=== PATIENT | female | born 1950 | race Caucasian/White ===

== ENCOUNTER → 2016-07-26 | Outpatient (CLI) | payer BC, MEDICARE | LOC: LABPAT 15:36 | PROVIDERS: ATTEND Orthopaedic Surgery | DX: Z01.812 Encounter for preprocedural laboratory examination (principal) | CPT/HCPCS: 87070 ==

== ENCOUNTER → 2016-08-01 | Outpatient (CLI) | payer BC, MEDICARE ==
[2016-08-01 13:55] LABS: Basophils % (A) 0 %; CH 32.2; CHCM 32.3; Eosinophils # (A) 0.1 k/uL (0-0.7); Eosinophils % (A) 2 %; HCT 43.3 % (34.0-46.0); HGB 13.9 gm/dL (11.4-16.0); Luc # (Auto) 0.19; Luc % (Auto) 3; Lymphocytes # (A) 1.4 k/uL (1.0-4.8); Lymphocytes % (A) 19 %; Mean Platelet Volume 8.7; Monocytes # (A) 0.4 k/uL (0-1.0); Monocytes % (A) 5 %; Neutrophils # (A) 5.4 k/uL (1.3-7.7); Neutrophils % (A) 72 %; RBC 4.33 m/uL (3.80-5.40); RDW 12.7 % (11.5-15.5); WBC 7.4 k/uL (3.8-10.6); WBC (Perox) 7.63
[2016-08-01 14:04] LABS: INR 1.1 (<1.1); Partial Thromboplastin Time 24.3 sec (22.0-30.0); Prothrombin Time 10.7 sec (9.0-12.0)
[2016-08-01 14:05] LABS: ALT 26 U/L (9-52); AST 23 U/L (14-36); Alkaline Phosphatase 61 U/L (38-126); Anion Gap 7 mmol/L; Blood Urea Nitrogen 18 mg/dL (7-17); Calcium 9.8 mg/dL (8.4-10.2); Carbon Dioxide 28 mmol/L (22-30); Chloride 101 mmol/L (98-107); Glucose 86 mg/dL (74-99); Non-African American GFR(MDRD) >60 (>60 ml/min/1.73 sqM); Sodium 136 mmol/L (137-145); Total Bilirubin 0.7 mg/dL (0.2-1.3)
[2016-08-01 14:07] LABS: Potassium 4.9 mmol/L (3.5-5.1)
[2016-08-01 14:38] LABS: Appearance,Urine Clear (Clear); Bacteria,Urine Rare /hpf; Bilirubin,Urine Negative (Negative); Glucose,Urine (UA) Negative (Negative); Ketones,Urine Negative (Negative); Leukocyte Esterase,Urine Negative (Negative); Mucus,Urine Rare /hpf; Nitrite,Urine Negative (Negative); PH, Urine 5.5 (5.0-8.0); Particle Count 704; Protein,Urine Negative (Negative); RBC,Urine 8 /hpf (0-5); Specific Gravity,Urine 1.014 (1.001-1.035); Squamous Epithelial Cell,Urine <1 /hpf (0-4); UA Billing (MACRO vs. MICRO) MICRO; Urobilinogen,Urine <2.0 mg/dL (<2.0); WBC,Urine 1 /hpf (0-5)
== END ==
LOC: LABPAT 13:12
PROVIDERS: ATTEND Orthopaedic Surgery
DX: Z01.818 Encounter for other preprocedural examination (principal); Z51.81 Encounter for therapeutic drug level monitoring; Z79.01 Long term (current) use of anticoagulants
CPT/HCPCS: 80053; 81001; 85025; 85610; 85730; 86850; 86900; 86901

== ENCOUNTER 2016-08-08 05:54 | Inpatient (IN) | payer BC, MEDICARE ==
[2016-07-28 15:04] VITALS: BMI 21.2
[~2016-08-08 05:54] MED LIST: ACETAMINOPHEN TAB 500 MG TAB PO ONE; DEXAMETHASONE SOD PHOSPHATE 10 MG/ML 1 ML VIAL IV ONE; HYDROmorphone 1 MG/ML 1 ML SYRINGE IVP PRN; LIDOCAINE 1% 20 ML VIAL (10MG/ML) FOR IV START INTRADERMA PRN; MELOXICAM 7.5 MG TAB PO ONE; MIDAZOLAM 2 MG/2 ML VIAL IV PRN; ONDANSETRON 4 MG/2 ML VIAL IVP ONE; SCOPOLAMINE 1.5MG/72HR PATCH TRANSDERM ONE; TRANEXAMIC ACID 1,000 MG in SODIUM CHLORIDE 0.9% 100 ML IVPB ONE; ceFAZolin 2 GM in SODIUM CHLORIDE 0.9% 100 ML IVPB ONE
[2016-08-08] MEDS ORDERED: LIDOCAINE 1% 20 ML VIAL (10MG/ML) FOR IV START INTRADERMA ONE ×2 (06:40→06:54)
[2016-08-08] MEDS: LACTATED RINGERS 1,000 ML IV SCH ×2 (06:52→23:18)
[2016-08-08] MEDS ORDERED: TRANEXAMIC ACID 1,000 MG/10 ML VIAL ONE (07:29)
[2016-08-08] MEDS ORDERED: SODIUM CHLORIDE 0.9% 100 ML BAG ONE (07:29)
[2016-08-08] MEDS ORDERED: MIDAZOLAM 2 MG/2 ML VIAL ONE (07:29)
[2016-08-08] MEDS ORDERED: ePHEDrine 50 MG/ML 1 ML AMP ONE (07:29)
[2016-08-08] MEDS ORDERED: PROPOFOL 10 MG/ML 20 ML VIAL IV ONE (07:29)
[2016-08-08] MEDS ORDERED: fentaNYL (PF) 50 MCG/ML 2 ML AMP ONE (07:29)
[2016-08-08] MEDS ORDERED: ceFAZolin 3,000 MG in SODIUM CHLORIDE 0.9% IRRIGATIO 3,000 ML IRRIGATION ONE (07:29)
[2016-08-08] MEDS ORDERED: HEPARIN SODIUM,PORCINE 10,000 UNIT/ML 1 ML VIAL ONE (07:29)
[2016-08-08] MEDS ORDERED: LACTATED RINGERS 1,000 ML BAG IV ONE (07:29)
[2016-08-08] MEDS: ROPIVACAINE 246.25 MG, EPINEPHrine 0.5 MG, KETOROLAC 30 MG, cloNIDine HCL/PF 80 MCG, WA... MISCELLANE ONE ×10 (08:08→08:42)
[2016-08-08] MEDS ORDERED: LACTATED RINGERS 1,000 ML IV ONE (09:05)
--- NOTE | 2016-08-08 09:13 | P.OP ---
Date of Procedure: 08/08/16 Preoperative Diagnosis: Severe osteoarthritis right hip Postoperative Diagnosis: Severe osteoarthritis right hip Procedure(s) Performed: Right total hip arthroplasty with a direct anterior approach Implants: Livingston and nephew Polarstem size 3 standard [employer]ston [employer] Nephew R3, 3 hole acetabular shell, 50 mm [employer]ston [employer]hew reflection 6.5 mm cancellus screw, 20 mm 2 [employer]ston [employer]hew R3, XLPE 20 acetabular liner [employer]ston [employer]hew Oxinium femoral head 36 m, -3 All components were press-fit. The articulation is ceramic on polyethylene. Anesthesia: spinal Surgeon: Jasper Marsh Network Technical Analyst #1: Melodie Carmen Estimated Blood Loss (ml): 100 Pathology: other (Femoral head) Condition: stable Disposition: PACU Indications for Procedure: After failure of conservative treatment we discussed the surgical and nonsurgical treatment options at length. Patient wishes to proceed with a total hip arthroplasty with a direct anterior approach. Complications specific to this procedure were discussed at length, including but not limited to infection, leg length discrepancy, dislocation, and nerve injury. Patient is aware of all these complications and informed consent was obtained Operative Findings: The operative findings are consistent with severe osteoarthritis of the right hip Description of Procedure: Patient was seen and evaluated in the preoperative area, consent was reviewed, and the surgical site was marked with a skin marker. Patient was then brought to the operating room and given prophylactic antibiotics intravenously. 1 g of Tranexamic acid was also given. A spinal anesthetic was administered by the anesthesia department. A Lane catheter was then placed by the nursing staff. The patient was then placed on the [place] table with the bony prominences well- padded. The hip area was then prepped and draped in usual sterile fashion. A universal timeout was then performed, which confirmed the patient's name, surgical site, ALLERGIES, and procedure being performed. Next the incision site was located at 1 cm distal and 1 cm lateral to the anterior superior iliac spine. The skin and subcutaneous tissues were sharply incised. Incision was carefully dissected down to the fascia overlying the tensor fascia maryam muscle. This fascia was then incised in line with the incision. Next, using blunt finger dissection, the tensor fascia maryam muscle was dissected off its investing fascia. The muscle was then carefully retracted laterally with a cobra retractor over the lateral neck of the femur. Next, the circumflex vessels were identified and cauterized using the AquaMantis device. The anterior hip capsule was then exposed. The capsule was then opened and an inverted T fashion. Retention sutures were placed in the inferior arms of the capsule. Cobra retractors were then placed intracapsularly. The proximal femur was then visualized. The femoral neck was then osteotomized appropriate level above the lesser trochanter. Small amount of traction was placed with the [place] table. A small wedge of bone was then removed from the remaining femoral head. Next, using a corkscrew femoral head was easily removed from the acetabulum. On gross visual inspection, the femoral head had complete loss of articular cartilage in multiple periarticular osteophytes. Attention was then turned to the acetabulum. the acetabulum was exposed and any remaining labrum was excised. Sequential reaming of the acetabulum was performed using fluoroscopic guidance. When the appropriate size was reached, a trial was then placed. The position and fit of the trial was checked with fluoroscopy. The trial was then removed. Then, using fluoroscopic guidance, the final implant was impacted at 20 of anteversion and 40 of abduction, and fully seated in the acetabulum. 2 screws were then placed in the acetabulum. Again fluoroscopy was used to check position of the screws. Next, the liner was then impacted, with a 20 elevated liner located in the anterior superior quadrant. Component locking was confirmed. Attention was then directed to the femur. With the aid of the [place] table, the femur was externally rotated to approximately 130, extended, and abducted under the opposite leg. A side hook was then placed under the proximal femur, and the side hook elevator was used to elevate the proximal femur. Retractors were then placed. A capsular release was performed, as well as a release of the conjoined tendon, which afforded excellent visualization of the proximal femur. Next, a box osteotome was used to lateralize the proximal femur. A brick molder hand was then used to locate the femoral canal. Sequential broaching was then performed with appropriate size which afforded excellent fixation in the proximal femur. A trial was then placed with appropriate head and neck, and the hip was gently reduced with the aid of the [place] table. Fluoroscopy was then used to check position of the components, as well as to ensure equal leg lengths. The hip was then gently dislocated and the trials were then removed. Final implants were then impacted and the hip was again reduced. Final fluoroscopic x-rays confirmed that the components were in anatomic position, as well as equal leg lengths. The hip was also taken through range of motion, and found to be stable. The hip was then copiously irrigated with antibiotic solution with pulsatile lavage. The hip was then irrigated with Irrisept solution. The soft tissues were then injected with a ropivacaine solution, which consisted of 246.25 mg of ropivacaine, 0.5 mg of epinephrine, 30 mg of Toradol, 80 g of clonidine, and 48.45 mL of sterile water, for a total of 100 mL of fluid injected. A second dose of 1 g of Tranexamic acid was also given. the fascia was then closed with 2-0 strata fix suture. The subcutaneous tissue was closed with 3-0 Vicryl. The subcuticular tissue was closed with 3-0 strata fix suture. The skin was then closed with Dermabond tape. The patient was then transferred to the recovery room in stable condition. The elementary assistant teacher CLARY Rogers was required due to the complexity of surgery , and the need for skilled surgical coordinator for positioning, draping, exposure , retraction, and closure of the wound.
[2016-08-08] MEDS ORDERED: HYDROmorphone 1 MG/ML 1 ML SYRINGE IVP PRN ×3 (09:19)
[2016-08-08] MEDS ORDERED: ONDANSETRON 4 MG/2 ML VIAL IVP PRN (09:19)
[2016-08-08] MEDS ORDERED: MAGNESIUM HYDROXIDE 2,400 MG/10 ML CUP PO PRN (09:19)
[2016-08-08] MEDS ORDERED: NALOXONE 0.4 MG/ML 1 ML VIAL IV PRN (09:19)
[2016-08-08] MEDS ORDERED: DIAZEPAM 5 MG TAB PO PRN ×2 (09:19)
[2016-08-08] MEDS ORDERED: HYDROcodone/APAP 7.5-325MG 1 EACH TAB PO PRN (09:19)
--- NOTE | 2016-08-08 10:19 | XR ---
EXAMINATION TYPE: XR Hip Limited RT DATE OF EXAM: 08/08/2016 9:42 AM COMPARISON: NONE HISTORY: 66-year-old female status post hip surgery, assess surgical alignment TECHNIQUE: Single portable AP view FINDINGS: Images show placement of right hip total arthroplasty. The acetabular cup and femoral short stem comp onent of the prosthesis appear well seated without periprosthetic fracture. Alignment is grossly mary grace omic. Soft tissue gas related to recent operation. IMPRESSION: Uncomplicated postoperative appearance right total hip arthroplasty.
--- NOTE | 2016-08-08 10:55 | XR ---
EXAMINATION TYPE: XR Hip Limited RT, FL guidance operating room DATE OF EXAM: 08/08/2016 9:06 AM COMPARISON: NONE HISTORY: 66 year-old female right anterior hip replacement TECHNIQUE: Intraoperative fluoroscopy and AP view right hip FINDINGS: Images during placement of right total hip arthroplasty. One image shows partial visualization of a l eft total hip replacement as well. FLUOROSCOPY Fluoroscopy time of 39 seconds was used during anterior right hip replacement. 2 image/s document/s the procedure. IMPRESSION: Intraoperative fluoroscopy as above.
[2016-08-08] MEDS: HYDROcodone/APAP 7.5-325MG 1 EACH TAB PO PRN ×2 (14:30→19:39)
[2016-08-08] MEDS: SODIUM CHLORIDE 0.9% 1,000 ML IV SCH ×2 (17:32→19:40)
[2016-08-08] MEDS: ceFAZolin 2 GM in SODIUM CHLORIDE 0.9% 100 ML IVPB SCH ×2 (17:33→23:18)
--- NOTE | 2016-08-08 18:27 | CONS ---
DATE OF CONSULTATION: 08/08/2016 REASON FOR CONSULTATION: Advice regarding gastroesophageal reflux disease and other multiple medical issues requested by Dr. Marsh. HISTORY OF PRESENT ILLNESS: This 66 -year-old woman with past history of gastroesophageal reflux disease, DJD, history of section, hysterectomy, history of degenerative joint disease, history of depression, being followed by Dr. Arroyo in the outpatient setting was admitted after right total hip joint arthroplasty for severe degenerative joint disease. There is no history of any fever, rigors or chills. No history of headache, loss of consciousness or seizures. PAST MEDICAL HISTORY: GERD, history of degenerative joint disease, History of hysterectomy, history of depression. Medications prior to admission include home medications are: 1. Zoloft 50 mg p.o. daily. 2. Multivitamins one p.o. daily. 3. Ativan 1 mg p.o. daily. 4. Melvin 7.5 q6h, p.r.n. 5. Aspirin 81 mg daily. 6. Vitamin C 500 mg p.o. daily. ALLERGIES: None. FAMILY HISTORY: History of deep venous thrombosis in the family. SOCIAL HISTORY: History of smoking on a daily basis. No history of alcohol intake. REVIEW OF SYSTEMS: HEENT: No diminished hearing, diminished vision. CARDIOVASCULAR: No angina or palpitations. RESPIRATORY: No cough. No hemoptysis. GI: No nausea. : No dysuria. Nervous system: No numbness or weakness. Allergy/immunology: No asthma or hayfever. MUSCULOSKELETAL: As mentioned earlier. HEMATOLOGY/ONCOLOGY: No history of anemia. ENDOCRINE: No history of diabetes, hypothyroidism. CONSTITUTIONAL: As mentioned earlier. Dermatology: Negative. Rheumatology: Negative. PSYCHIATRY: As mentioned earlier. PHYSICAL EXAMINATION: The patient is alert and oriented times three. Pulse 74, blood pressure 130/60, respiratory rate 16, temperature 97.2, pulse ox 99% on room air. HEENT: Conjunctivae normal. Oral mucosa moist. NECK: No jugular venous distention. No carotid bruit. No lymph node enlargement. CARDIOVASCULAR: S1, S2 muffled. RESPIRATORY: Breath sounds diminished at the bases. No rhonchi, no crackles. ABDOMEN: Soft, nontender. LEGS: Status post hip arthroplasty. Nervous system: Higher function as mentioned. Moves all four limbs. No focal motor deficits. LYMPHATICS: No lymph nodes palpable in the neck, axillae or groin. SKIN: No ulcer, rash or bleeding. Joints: As mentioned earlier. The labs are CBC within normal limits. D-dimer was high previously. Otherwise, CMP normal. LDL is 109. UA shows some RBCs. ASSESSMENT: 1. Status post right total hip joint arthroplasty. 2. History of gastroesophageal reflux disease. 3. History of degenerative joint disease. 4. History of anemia. 5. History of joint replacement. 6. History of depression not otherwise specified. 7. History of nicotine dependence. 8. Mild hyponatremia previous recently. RECOMMENDATIONS AND DISCUSSION: This 66-year-old woman who presented with multiple medical issues at this time I recommend to continue current medications, continue symptomatic treatment, continue with deep venous thrombosis prophylaxis, incentive spirometry. Pain medications. Follow up closely with orthopedic surgery. Otherwise, I would also recommend resume the home medications. Medications reconciliation done. I would also recommend repeat labs, CBC and electrolytes also. Continue to monitor. Aspirin will be restarted once the patient is . Would also recommend DVT prophylaxis. Will follow the patient closely with orthopedic surgery. DAVID
[2016-08-08] MEDS: hydrOXYzine PAMOATE 25 MG CAP PO PRN (19:39)
[2016-08-08] MEDS: SENNOSIDES-DOCUSATE SODIUM 1 EACH TAB PO SCH (19:39)
[2016-08-08] MEDS: ASPIRIN 325 MG TAB PO SCH (19:40)
[2016-08-09] MEDS: HYDROcodone/APAP 7.5-325MG 1 EACH TAB PO PRN ×4 (03:30→22:12)
[2016-08-09] MEDS: hydrOXYzine PAMOATE 25 MG CAP PO PRN ×3 (03:30→22:12)
[2016-08-09 07:03] LABS: Potassium 4.6 mmol/L (3.5-5.1)
[2016-08-09 07:21] LABS: Basophils # (A) 0.2 k/uL (0-0.2); Basophils % (A) 2 %; CH 31.6; CHCM 32.4; Eosinophils % (A) 0 %; HCT 33.9 % (34.0-46.0); HDW 2.14; Luc # (Auto) 0.26; Luc % (Auto) 3; Lymphocytes # (A) 1.4 k/uL (1.0-4.8); Lymphocytes % (A) 16 %; MCH 31.9 pg (25.0-35.0); MCHC 32.4 g/dL (31.0-37.0); MCV 98.2 fL (80.0-100.0); Mean Platelet Volume 8.1; Monocytes # (A) 0.5 k/uL (0-1.0); Monocytes % (A) 5 %; Neutrophils # (A) 6.7 k/uL (1.3-7.7); Neutrophils % (A) 74 %; RBC 3.45 m/uL (3.80-5.40); RDW 12.5 % (11.5-15.5); WBC 9.1 k/uL (3.8-10.6); WBC (Perox) 10.02
--- NOTE | 2016-08-09 09:16 | P.PN ---
Subjective Principal diagnosis: Status post right total hip This is a pleasant 66-year-old female who is status post right total hip arthroplasty. The patient is seen and evaluated at bedside with Dr. Jasper Marsh. Her pain is reasonably controlled. She has no new complaints at this time. Objective - Vital Signs Vital signs: Vital Signs Temp 98 F 08/09/16 07:00 Pulse 66 08/09/16 07:00 Resp 17 08/09/16 07:00 BP 117/60 08/09/16 07:00 Pulse Ox 99 08/09/16 07:00 Intake & Output 08/08/16 08/09/16 08/09/16 18:59 06:59 18:59 Intake Total 2732 400 Output Total 1930 1300 Balance 802 -900 Weight 57.153 kg Intake: IV 1452 300 Sodium Chloride 0.9% 1, 150 300 000 ml @ 75 mls/hr IV . [id number] REGGIE Rx#:[id number] Intake, IV Titration 100 Amount ceFAZolin 2 gm In Sodium 100 Chloride 0.9% 100 ml @ 100 mls/hr IVPB Q8HR REGGIE Rx#:[id number] Oral 1280 Output: Urine 1830 1300 Uretheral (Lane) 1750 1300 Estimated Blood Loss 100 Other: Voiding Method Indwelling Catheter Indwelling Catheter - Exam The patient does not appear in acute distress. Alert and orientated 3. Dressing is clean dry and intact. Incision appears fine with no erythema or active drainage. Calf is soft and nontender. Good foot and ankle motion without difficulty. Sensation and circulatory status is intact. - Labs CBC & Chem 7: 08/09/16 06:31 08/09/16 06:31 Labs: Abnormal Lab Results - Last 24 Hours (Table) 08/09/16 08/09/16 Range/Units 06:31 06:31 RBC 3.45 L (3.80-5.40) m/uL Hgb 11.0 L (11.4-16.0) gm/dL Hct 33.9 L (34.0-46.0) % Sodium 136 L (137-145) mmol/L Assessment and Plan (1) Status post right hip replacement Status: Acute (2) Primary osteoarthritis of right hip Status: Acute Plan: Continue with routine postoperative care. Anticoagulation with aspirin. Pain control and physical therapy. Anticipate discharge to home with home care tomorrow.
[2016-08-09] MEDS: SERTRALINE 50 MG TAB PO SCH (09:26)
[2016-08-09] MEDS: ASPIRIN 325 MG TAB PO SCH ×2 (09:26→21:42)
[2016-08-09] MEDS: MELOXICAM 7.5 MG TAB PO SCH (09:26)
[2016-08-09] MEDS: LORazepam 1 MG TAB PO SCH (09:26)
[2016-08-09] MEDS: MULTIVITAMINS, THERA 1 EACH TAB PO SCH (12:03)
[2016-08-09] MEDS: SODIUM CHLORIDE 0.9% 1,000 ML IV SCH (13:52)
[2016-08-09] MEDS: SENNOSIDES-DOCUSATE SODIUM 1 EACH TAB PO SCH (21:42)
[2016-08-10] MEDS: HYDROcodone/APAP 7.5-325MG 1 EACH TAB PO PRN ×3 (04:24→16:39)
--- NOTE | 2016-08-10 08:58 | P.PN ---
Subjective Principal diagnosis: Status post right total hip arthroplasty This is a 66 year-old female post right total hip arthroplasty. This is post- op day 2. The patient was evaluated at the bedside today. The patient denies nausea, vomiting, abdominal pain, shortness of breath, and chest pain this morning. She states her pain is controlled at this time. The patient has been up ambulating to the bathroom. Objective - Vital Signs Vital signs: Vital Signs Temp 98 F 08/10/16 07:00 Pulse 70 08/10/16 07:00 Resp 16 08/10/16 07:00 BP 118/71 08/10/16 07:00 Pulse Ox 98 08/10/16 07:00 Intake & Output 08/09/16 08/10/16 08/10/16 18:59 06:59 18:59 Intake Total 960 600 Output Total 250 Balance 710 600 Intake: IV 0 Sodium Chloride 0.9% 1, 0 000 ml @ 75 mls/hr IV . [id number] REGGIE Rx#:[id number] Oral 960 600 Output: Urine 250 Uretheral (Lane) 250 Other: Voiding Method Toilet # Voids 1 1 - Exam The patient does not appear in acute distress. Alert and orientated x3. Dressing is clean dry and intact. Incision appears fine with no erythema or active drainage. Calf is soft and nontender. Good foot and ankle motion without difficulty. Sensation and circulatory status is intact. - Labs CBC & Chem 7: 08/09/16 06:31 08/09/16 06:31 Assessment and Plan (1) Primary osteoarthritis of right hip Status: Acute (2) Status post right hip replacement Status: Acute Plan: 1. Continue pain control 2. Anticoagulation with Aspirin 3. Continue physical therapy and ambulation 4. Anticipate discharge home with homecare either later today or tomorrow
[2016-08-10] MEDS: MELOXICAM 7.5 MG TAB PO SCH (09:31)
[2016-08-10] MEDS: LORazepam 1 MG TAB PO SCH (09:31)
[2016-08-10] MEDS: ASPIRIN 325 MG TAB PO SCH ×2 (09:31→22:22)
[2016-08-10] MEDS: MULTIVITAMINS, THERA 1 EACH TAB PO SCH (09:32)
[2016-08-10] MEDS: SERTRALINE 50 MG TAB PO SCH (09:32)
--- NOTE | 2016-08-10 21:24 | PN ---
DATE OF SERVICE: 08/10/2016 This 66-year-old woman who was admitted after right total knee joint is closely monitored. No chest or palpitation. No fever. On exam, alert and oriented times three. Pulse 72, blood pressure 112/64. Respiratory rate 17, temperature 98.4, pulse ox 99% on room air. HEENT: Conjunctivae normal. NECK: No jugular venous distention. CARDIOVASCULAR: S1, S2 muffled. RESPIRATORY: Breath sounds diminished at the bases. No rhonchi. No crackles. ABDOMEN: Soft. LEGS: Status post surgery. CENTRAL NERVOUS SYSTEM: No focal deficits. LABS: Hemoglobin 11, sodium 136. ASSESSMENT: 1. Status post right total hip joint arthroplasty. 2. History of gastroesophageal reflux disease. 3. Mild hyponatremia. 4. History of degenerative joint disease. 5. History of anemia, possibly dilutional. 6. History of joint replacement. 7. History of depression, not otherwise specified. 8. History of nicotine dependence. 9. Mild hyponatremia previously. RECOMMENDATIONS AND DISCUSSION: Recommend to continue current medications, continue symptomatic treatment. Otherwise, at this time, the patient appears to be medically stable. DVT prophylaxis. Incentive spirometry. Closely follow with orthopedic surgery. Possible ECF rehab. Further recommendations to follow.
[2016-08-10] MEDS: SENNOSIDES-DOCUSATE SODIUM 1 EACH TAB PO SCH (22:22)
[2016-08-11] MEDS: HYDROcodone/APAP 7.5-325MG 1 EACH TAB PO PRN ×3 (01:14→14:22)
[2016-08-11 07:43] LABS: Basophils % (A) 0 %; CH 31.7; CHCM 32.7; Eosinophils # (A) 0.1 k/uL (0-0.7); Eosinophils % (A) 2 %; HCT 33.7 % (34.0-46.0); HDW 2.04; HGB 10.9 gm/dL (11.4-16.0); Luc # (Auto) 0.22; Luc % (Auto) 3; Lymphocytes # (A) 1.5 k/uL (1.0-4.8); Lymphocytes % (A) 20 %; MCH 31.5 pg (25.0-35.0); MCHC 32.3 g/dL (31.0-37.0); MCV 97.3 fL (80.0-100.0); Mean Platelet Volume 7.3; Monocytes # (A) 0.4 k/uL (0-1.0); Monocytes % (A) 5 %; Neutrophils # (A) 5.3 k/uL (1.3-7.7); Neutrophils % (A) 70 %; RBC 3.47 m/uL (3.80-5.40); RDW 12.5 % (11.5-15.5); WBC 7.6 k/uL (3.8-10.6); WBC (Perox) 8.21
[2016-08-11 08:10] VITALS: BP 100/51; PULSE 74; RESP 18; TEMP 98
[2016-08-11] MEDS: ASPIRIN 325 MG TAB PO SCH (08:41)
[2016-08-11] MEDS: MELOXICAM 7.5 MG TAB PO SCH (08:42)
[2016-08-11] MEDS: SERTRALINE 50 MG TAB PO SCH (08:42)
[2016-08-11] MEDS: MULTIVITAMINS, THERA 1 EACH TAB PO SCH (08:42)
[2016-08-11] MEDS: LORazepam 1 MG TAB PO SCH (08:48)
--- NOTE | 2016-08-11 09:20 | P.DS ---
Providers Date of admission: 08/08/16 05:54 Expected date of discharge: 08/11/16 Attending physician: Jasper Marsh Consults: 08/08/16 09:19 Consult Physician Routine Consulting Provider: Bre Esquivel Consult Reason/Comments: medical management Do you want consulting provider notified?: Yes Primary care physician: Jessica Arroyo - Discharge Diagnosis(es) (1) Osteoarthritis of right hip Current Visit: Yes Status: Acute (2) Primary osteoarthritis of right hip Current Visit: Yes Status: Acute Hospital Course: This is a 66-year-old female with known history of degenerative arthritis of the right hip. The patient presents for evaluation. After discussion and consideration patient elects to proceed with total hip arthroplasty, anterior approach. The patient is seen preoperatively by her primary care physician and cleared for surgery. Patient is admitted to [facility] on 08/08/2016 for total hip arthroplasty, anterior approach. The procedures performed without complication or sequelae. The patient is doing well postoperatively. Labs and vital signs are stable on day of discharge. On day of discharge patient's hip incision is healing well. There is minimal erythema. There is no drainage noted at this time. There is minimal soft tissue swelling to the hip and thigh. Patient has full foot and ankle motion without difficulty or pain. Neurovascular status to the right lower extremity is intact. Patient is discharged to home in good condition. Please see med rec for accurate list of home medications. Patient Condition at Discharge: Good Plan - Discharge Summary New Discharge Prescriptions: Aspirin 325 mg PO BID #60 tab HYDROcodone/APAP 7.5-325MG [[place] 7.5] 1 - 2 each PO Q6HR PRN #90 tab PRN Reason: Pain Sennosides-Docusate Sodium [Senokot-S] 2 tab PO DAILY #60 tablet Discharge Medication List Ascorbic Acid [Vitamin C] 500 mg PO DAILY 02/12/15 [History] LORazepam [Ativan] 1 mg PO DAILY 02/12/15 [History] Sertraline [Zoloft] 50 mg PO DAILY 02/12/15 [History] HYDROcodone/APAP 7.5-325MG [[place] 7.5-325] 1 tab PO Q6HR PRN 03/17/15 [History] Aspirin 81 mg PO DAILY 07/28/16 [History] Multivitamins, Thera [Multivitamin] 1 tab PO DAILY 07/28/16 [History] Aspirin 325 mg PO BID #60 tab 08/09/16 [Rx] HYDROcodone/APAP 7.5-325MG [[place] 7.5] 1 - 2 each PO Q6HR PRN #90 tab 08/09/16 [ Rx] Sennosides-Docusate Sodium [Senokot-S] 2 tab PO DAILY #60 tablet 08/09/16 [Rx] Follow up Appointment(s)/Referral(s): [facility], [NON-STAFF] - 1 Week Jasper Marsh DO [Doctor of Osteopathic Medicine] - 2 Weeks Activity/Diet/Wound Care/Special Instructions: Weightbearing as tolerated with walker Daily dressing changes Keep incision clean and dry Call [facility] with questions or concerns [phone] Discharge Disposition: HOME WITH HOME HEALTH SERVICES
--- NOTE | 2016-08-12 07:34 | PN ---
DATE OF SERVICE: 08/11/2016 This 66-year-old woman was admitted after right total knee joint arthroplasty is improving significantly. No chest pain, no palpitations. No fever. On exam, alert and oriented x3. Pulse 75, blood pressure 143/76, respiratory rate 19, temperature 97.3, pulse ox 97% on room air. HEENT: Conjunctivae normal. NECK: No jugular venous distention. CARDIOVASCULAR: S1 and S2, muffled. RESPIRATORY: Breath sounds diminished at the bases. No rhonchi, no crackles. ABDOMEN: Soft, nontender. LEGS: Status post surgery. NERVOUS SYSTEM: No focal deficits. LABS: Hemoglobin 10.9. ASSESSMENT: 1. Status post right total knee joint arthroplasty. 2. History of gastroesophageal reflux disease. 3. Mild hyponatremia. 4. History of anemia, possibly dilutional. 5. History of joint replacement. 6. History of depression, not otherwise specified. 7. History nicotine dependence. 8. Mild hyponatremia previously. RECOMMENDATIONS AND DISCUSSION: I recommend to continue current medications, continue with monitoring and symptomatic treatment. Otherwise, recommend follow up with the primary physician. Resume the home medications. Otherwise, the rest of the recommendations per Orthopedic Surgery. Further recommendations to follow.
== END 2016-08-11 15:53 | disposition home health service (06) | DRG 470 ==
LOC: 2ORMAIN 05:54 → 3SUR 10:25
PROVIDERS: ADMIT Orthopaedic Surgery; ATTEND Orthopaedic Surgery
PROC: 0SR904A Replacement of Right Hip Joint with Ceramic on Polyethylene Synthetic Substitute, Uncemented, Open Approach (ICD-10-PCS; principal; 2016-08-08 07:30)
DX: M16.11 Unilateral primary osteoarthritis, right hip (principal); E87.1 Hypo-osmolality and hyponatremia; I10 Essential (primary) hypertension; K21.9 Gastro-esophageal reflux disease without esophagitis; Z79.82 Long term (current) use of aspirin; Z79.899 Other long term (current) drug therapy; Z87.891 Personal history of nicotine dependence; F32.9 Major depressive disorder, single episode, unspecified; E78.5 Hyperlipidemia, unspecified
CPT/HCPCS: 73501; 80051; 85025; 86850; 86891; 86900; 86901; 88300

== ENCOUNTER 2016-09-01 10:12 | Emergency (ER) | payer BC, MEDICARE ==
[2016-09-01 10:19] VITALS: BP 151/76; PULSE 109; RESP 18; TEMP 97.2
--- NOTE | 2016-09-01 10:48 | ED ---
General Adult HPI - General Chief complaint: ENT Stated complaint: MOUTH AND TOUNGE BURNING, POSS ALLERGIC REACTION Time Seen by Provider: 09/01/16 10:28 Source: patient, RN notes reviewed Mode of arrival: ambulatory Limitations: no limitations - History of Present Illness Initial comments: Patient is 66-year-old female who presents emergency room today with chief complaint of burning sensation to her tongue 3 days. She does admit to a recent hip replacement 6 weeks ago is been taking Gallitzin. She admits that she was drinking some wine with it as well. She is unsure if this has something to do with it. She states went to a dentist because it was a bump the roof of her mouth. Without my be just a pimple she was supposed go back to the dentist later next week. She also admits the family doctor who prescribed something for thrush. She states she's been using spacer over the last day with no relief of symptoms. Patient denies any difficulty swallowing or breathing. She denies any tongue swelling. Denies any lip swelling. Denies any other complaints. Patient denies any recent fever, chills, shortness of breath, chest pain, back pain, abdominal pain, nausea or vomiting, numbness or tingling, dysuria or hematuria, constipation or diarrhea, headaches or visual changes, or any other complaints. - Related Data Home Medications Medication Instructions Recorded Confirmed Ascorbic Acid [Vitamin C] 500 mg PO DAILY 02/12/15 09/01/16 LORazepam [Ativan] 1 mg PO DAILY 02/12/15 09/01/16 Sertraline [Zoloft] 50 mg PO DAILY 02/12/15 09/01/16 Multivitamins, Thera [Multivitamin 1 tab PO DAILY 07/28/16 09/01/16 (formulary)] Previous Rx's Medication Instructions Recorded Aspirin 325 mg PO BID #60 tab 08/09/16 HYDROcodone/APAP 7.5-325MG [Gallitzin 1 - 2 each PO Q6HR PRN #90 tab 08/09/16 7.5-325] Sennosides-Docusate Sodium 2 tab PO DAILY #60 tablet 08/09/16 [Senokot-S] Allergies Allergy/AdvReac Type Severity Reaction Status Date / Time No Known Allergies Allergy Verified 09/01/16 10:38 Review of Systems ROS Statement: Those systems with pertinent positive or pertinent negative responses have been documented in the HPI. ROS Other: All systems not noted in ROS Statement are negative. Past Medical History Past Medical History: GERD/Reflux, Osteoarthritis (OA) Additional Past Medical History / Comment(s): other past hx includes anemia. History of Any Multi-Drug Resistant Organisms: None Reported Past Surgical History: Section, Hysterectomy, Joint Replacement, Tonsillectomy Additional Past Surgical History / Comment(s): C SECTION X2., ANTERIOR TOTAL LEFT HIP, Past Anesthesia/Blood Transfusion Reactions: No Reported Reaction Past Psychological History: Depression Additional Psychological History / Comment(s): LIVES ALONE IN A [place]. IS GETTING PHYSICAL THERAPY AT HOME X2 A WEEK. USES A CANE WHEN UP DENIES ANY FALLS. Smoking Status: Current every day smoker Past Alcohol Use History: Occasional Additional Past Alcohol Use History / Comment(s): STARTED SMOKING AT AGE 24 SMOKES 1PPD TRYING TO QUIT DOWN TO 2 CIG PER DAY Past Drug Use History: None Reported - Past Family History Mother Family Medical History: Deep Vein Thrombosis (DVT) General Exam - General Exam Comments Initial Comments: General: The patient is awake and alert, in no distress, and does not appear acutely ill. Eye: Pupils are equal, round and reactive to light, extra-ocular movements are intact. No nystagmus. There is normal conjunctiva bilaterally. No signs of icterus. Ears, nose, mouth and throat: There are moist mucous membranes and no oral lesions. Neck: The neck is supple, there is no tenderness or JVD. Cardiovascular: There is a regular rate and rhythm. No murmur, rub or gallop is appreciated. Respiratory: Lungs are clear to auscultation, respirations are non-labored, breath sounds are equal. No wheezes, stridor, rales, or rhonchi. Gastrointestinal: Soft, non-distended, non-tender abdomen without masses or organomegaly noted. There is no rebound or guarding present. No CVA tenderness. Bowel sounds are unremarkable. Musculoskeletal: Normal ROM, no tenderness. Strength 5/5. Sensation intact. Pulses equal bilaterally 2+. Neurological: A&O x 3. CN II-XII intact, There are no obvious motor or sensory deficits. Coordination appears grossly intact. Speech is normal. Skin: Skin is warm and dry and no rashes or lesions are noted. Psychiatric: Cooperative, appropriate mood & affect, normal judgment. Limitations: no limitations Course Vital Signs 09/01/16 10:15 Temperature 97.2 F L Pulse Rate 109 H Respiratory 18 Rate Blood Pressure 151/76 O2 Sat by Pulse 100 Oximetry Medical Decision Making - Medical Decision Making Patient will be given a prescription for Magic mouthwash advised to use this. Advised follow-up the family doctor in the next 1-2 days. Advised return for any other concerns. Disposition Clinical Impression: Oral thrush Disposition: HOME SELF-CARE Condition: Good Instructions: Oral Candidiasis (ED) Additional Instructions: Please use medication as prescribed and follow-up with family doctor next 1-2 days. Please return to emergency room if any symptoms increase or worsen or for any other concerns. Time of Disposition: 10:43
== END 2016-09-01 11:00 | disposition home or self-care (01) ==
LOC: EC 10:12
DX: B37.0 Candidal stomatitis (principal); F32.9 Major depressive disorder, single episode, unspecified; F17.210 Nicotine dependence, cigarettes, uncomplicated; Z79.899 Other long term (current) drug therapy
CPT/HCPCS: 99283

== ENCOUNTER → 2017-02-14 | Outpatient (CLI) | payer BC, MEDICARE ==
--- NOTE | 2017-02-14 16:15 | CTL ---
EXAMINATION TYPE: CT Low Dose Lung DATE OF EXAM ORDERED: 02/14/2017 COMPARISON: None HISTORY: . Low Dose CT Lung Screening CT DLP: 65.[address] CTDI: 1.8 mGy IV CONTRAST USED: None. SCREENING VISIT: First visit COMPARISON: None. TECHNIQUE: Low dose computed tomography scan was performed through the chest at 1 millimeter thick sections and reconstructed images in the coronal plane at [address] DIAGNOSTIC QUALITY: Satisfactory FINDINGS: LUNG NODULES: Not present. Left lung: no nodules identified. Right lung: no nodules identified. Calcified benign right upper lobe. LUNGS: COPD: Severity: Mild. Mild upper lobe emphysematous change. Mild apical probable scarring. Fibrosis: Severity:None Lymph nodes: None Other findings: None RIGHT PLEURAL SPACE: Effusion: None Calcification: None Thickening: None Pneumothorax: None LEFT PLEURAL SPACE: Effusion: None Calcification: None Thickening: None Pneumothorax: None HEART: Heart Size: Mildly enlarged Coronary calcification: Mild Pericardial effusion: None OTHER FINDINGS: Upper abdomen: No significant abnormality Bony thorax: Degenerative changes Supraclavicular region: No significant abnormality Other: No significant abnormality IMPRESSION: 1. Mild upper lobe emphysematous change and parenchymal scarring. 2. Calcified granuloma right upper lobe. FOLLOW UP CT CHEST RECOMMENDATION: Follow-up screening in one year CT LUNG RAD: Category 1 negative LUNG RAD CATEGORY category 1 MTDD
== END | disposition home or self-care (01) ==
LOC: RADCTMAIN 15:45
PROVIDERS: ATTEND Family Medicine
DX: Z13.6 Encounter for screening for cardiovascular disorders (principal); J43.9 Emphysema, unspecified; J98.4 Other disorders of lung; F17.210 Nicotine dependence, cigarettes, uncomplicated

== ENCOUNTER → 2017-04-06 | Outpatient (CLI) | payer BC, MEDICARE ==
--- NOTE | 2017-04-06 13:56 | EST ---
EXERCISE STRESS DATE OF SERVICE: 04/06/2017 AGE: 67 SEX: Female HT: 66 WT: 130 PROTOCOL: Niranjan STAGE: I DURATION OF EXERCISE: 2 minutes and 30 seconds HEART RATE REST: 88 BLOOD PRESSURE REST: 108/77 MAXIMUM HEART RATE ACHIEVED: 156 MAXIMUM BLOOD PRESSURE: 216/82 85% MPHR: 129 100% MPHR: 152 METS: 4.0 INDICATIONS: Chest pain. CLINICAL INFORMATION: Patient was exercised for a total period of 2 minutes and 30 seconds. A peak heart rate of 156 was achieved. Maximum blood pressure of 216/82 mmHg was noted. Patient did not complain of any chest pain during the test. The test was terminated because patient got short of breath. Resting EKG shows normal sinus rhythm with normal MT interval and QRS duration and normal ST-T waves. No ST-segment depression suggestive of ischemia was noted. No dysrhythmias are noted. FINAL IMPRESSION: 1. This exercise EKG is not suggestive of ischemia. 2. Patient's exercise tolerance is below average due to symptoms of shortness of breath. 3. Patient did not complain of any chest pain during the test. MMODL / IJN: [id number] /
== END | disposition home or self-care (01) ==
LOC: RADNMMAIN 11:25
PROVIDERS: ATTEND Family Medicine
DX: R07.9 Chest pain, unspecified (principal)
CPT/HCPCS: 93017

== ENCOUNTER → 2017-04-16 | Outpatient (CLI) | payer BC, MEDICARE ==
--- NOTE | 2017-04-18 09:55 | MM ---
Reason for exam: screening (asymptomatic). Last mammogram was performed 1 year and 1 month ago. History: Patient is postmenopausal. Family history of breast cancer in maternal aunt. Benign excisional biopsy of the right breast, 1998. Physical Findings: A clinical breast exam by your physician is recommended on an annual basis and results should be correlated with mammographic findings. MG 3D Screening Mammo W/Cad Bilateral CC and MLO view(s) were taken. Prior study comparison: March 29, 2016, bilateral MG 3d diag mammo w/cad [facility]. April 14, 2015, bilateral MG screening mammo w CAD. The breast tissue is heterogeneously dense. This may lower the sensitivity of mammography. No significant changes when compared with prior studies. ASSESSMENT: Negative, BI-RAD 1 RECOMMENDATION: Routine screening mammogram of both breasts in 1 year.
== END | disposition home or self-care (01) ==
LOC: RADMAMWWP 15:40
PROVIDERS: ATTEND Family Medicine
DX: Z12.31 Encounter for screening mammogram for malignant neoplasm of breast (principal)
CPT/HCPCS: 77063; G0202

== ENCOUNTER 2017-05-08 16:25 | Emergency (ER) | payer BC, MEDICARE ==
[2017-05-08] MEDS ORDERED: ASPIRIN 81 MG PO STA (16:40)
[2017-05-08 17:08] LABS: Basophils % (A) 0 %; CH 31.1; CHCM 33.8; Eosinophils # (A) 0.1 k/uL (0-0.7); Eosinophils % (A) 1 %; HCT 40.2 % (34.0-46.0); HDW 2.21; HGB 13.3 gm/dL (11.4-16.0); Luc # (Auto) 0.13; Luc % (Auto) 2; Lymphocytes # (A) 1.2 k/uL (1.0-4.8); Lymphocytes % (A) 14 %; MCH 30.7 pg (25.0-35.0); MCHC 33.2 g/dL (31.0-37.0); MCV 92.5 fL (80.0-100.0); Mean Platelet Volume 7.8; Monocytes # (A) 0.3 k/uL (0-1.0); Monocytes % (A) 3 %; Neutrophils # (A) 6.9 k/uL (1.3-7.7); Neutrophils % (A) 80 %; RBC 4.35 m/uL (3.80-5.40); RDW 12.3 % (11.5-15.5); WBC 8.6 k/uL (3.8-10.6); WBC (Perox) 8.17
[2017-05-08 17:16] LABS: ALT 33 U/L (9-52); AST 28 U/L (14-36); Alkaline Phosphatase 87 U/L (38-126); Anion Gap 11 mmol/L; Blood Urea Nitrogen 19 mg/dL (7-17); Calcium 9.7 mg/dL (8.4-10.2); Carbon Dioxide 22 mmol/L (22-30); Chloride 102 mmol/L (98-107); Glucose 89 mg/dL (74-99); Magnesium 1.8 mg/dL (1.6-2.3); Non-African American GFR(MDRD) >60 (>60 ml/min/1.73 sqM); Potassium 4.1 mmol/L (3.5-5.1); Sodium 135 mmol/L (137-145); Total Bilirubin 0.5 mg/dL (0.2-1.3); Total Protein 6.5 g/dL (6.3-8.2)
[2017-05-08 17:21] LABS: INR 1.1 (<1.2); Partial Thromboplastin Time 23.8 sec (22.0-30.0); Prothrombin Time 10.6 sec (9.0-12.0)
[2017-05-08 17:28] LABS: Creatine Kinase 117 U/L (30-135)
[2017-05-08] MEDS ORDERED: RX INFO: IV CONTRAST WAS GIVEN 1 EACH MISC MISCELLANE PRN (17:28)
--- NOTE | 2017-05-08 17:38 | XR ---
EXAMINATION TYPE: XR chest 2V DATE OF EXAM: 05/08/2017 COMPARISON: CT low-dose lung screening February 14, 2017 HISTORY: Chest pain today TECHNIQUE: Frontal and lateral views of the chest are obtained. FINDINGS: Underlying emphysematous changes redemonstrated There is no focal air space opacity, pleur al effusion, or pneumothorax seen. The cardiac silhouette size is within normal limits. The osseou s structures are demineralized. IMPRESSION: Chronic emphysematous change without acute pulmonary process.
[2017-05-08 17:41] LABS: Creatine Kinase MB 1.8 ng/mL (0.0-2.4); Troponin I <0.012 ng/mL (0.000-0.034)
--- NOTE | 2017-05-08 17:41 | ED ---
Chest Pain HPI - General Chief Complaint: Chest Pain Stated Complaint: Chest Pain Time Seen by Provider: 05/08/17 16:40 Source: patient, RN notes reviewed Mode of arrival: wheelchair Limitations: no limitations - History of Present Illness Initial Comments: This a 67-year-old female presents emergency Department chief complaint of intermittent chest pain. Patient states has been present last few weeks. Patient states that she did see her primary care physician for this chest discomfort and states that she has stress test which showed no acute RI other than her being short of breath. Patient states she is a smoker. Patient has had no prior cardiac issues. Patient has not taken any cardiac meds. Patient states that just prior to having this chest pain she fell striking her chest and she believes is the pain is from. She states it hurts when she presses on her chest. She denies any shortness breath at rest denies any pain with deep inspiration. Patient denies any injury no headache no dizziness denies any nausea vomiting diarrhea constipation. - Related Data Home Medications Medication Instructions Recorded Confirmed Ascorbic Acid [Vitamin C] 500 mg PO DAILY 02/12/15 05/08/17 LORazepam [Ativan] 1 mg PO DAILY 02/12/15 05/08/17 Sertraline [Zoloft] 50 mg PO DAILY 02/12/15 05/08/17 Multivitamins, Thera [Multivitamin 1 tab PO DAILY 07/28/16 05/08/17 (formulary)] Cholecalciferol [Vitamin D3] 1,000 unit PO DAILY 05/08/17 05/08/17 Allergies Allergy/AdvReac Type Severity Reaction Status Date / Time No Known Allergies Allergy Verified 05/08/17 17:03 Review of Systems ROS Statement: Those systems with pertinent positive or pertinent negative responses have been documented in the HPI. ROS Other: All systems not noted in ROS Statement are negative. EKG Findings - EKG Comments: EKG Findings:: EKG performed at 16:40 normal sinus rhythm with rate of 87. IN 200 QRS duration 74 QT/QTC 382/459 Past Medical History Past Medical History: GERD/Reflux, Osteoarthritis (OA) Additional Past Medical History / Comment(s): anemia. History of Any Multi-Drug Resistant Organisms: None Reported Past Surgical History: Orthopedic Surgery Additional Past Surgical History / Comment(s): C SECTION X2., ANTERIOR TOTAL LEFT HIP, Past Anesthesia/Blood Transfusion Reactions: No Reported Reaction Past Psychological History: Anxiety, Depression Smoking Status: Current every day smoker Past Alcohol Use History: Occasional Past Drug Use History: None Reported - Past Family History Mother Family Medical History: Deep Vein Thrombosis (DVT) General Exam Limitations: no limitations General appearance: alert, in no apparent distress Head exam: Present: atraumatic, normocephalic, normal inspection Eye exam: Present: normal appearance, PERRL, EOMI. Absent: scleral icterus, conjunctival injection, periorbital swelling ENT exam: Present: normal exam, normal oropharynx, mucous membranes moist Neck exam: Present: normal inspection, full ROM. Absent: tenderness, meningismus, lymphadenopathy Respiratory exam: Present: normal lung sounds bilaterally, chest wall tenderness (Reproducible right-sided chest pain anterior). Absent: respiratory distress, wheezes, rales, rhonchi, stridor Cardiovascular Exam: Present: regular rate, normal rhythm, normal heart sounds. Absent: systolic murmur, diastolic murmur, rubs, gallop, clicks Back exam: Absent: CVA tenderness (R), CVA tenderness (L) Neurological exam: Present: alert, oriented X3, CN II-XII intact, reflexes normal. Absent: motor sensory deficit Skin exam: Present: warm, dry, intact, normal color. Absent: rash Course Vital Signs 05/08/17 05/08/17 16:34 17:59 Temperature 98.0 F Pulse Rate 97 89 Respiratory 18 16 Rate Blood Pressure 146/70 189/81 O2 Sat by Pulse 98 97 Oximetry Chest Pain MDM - MDM 67-year-old female presents emergency department for intermittent chest pain over the last 2 weeks or more. Patient had a stress test 4 weeks ago this is when pain actually started before. Patient has reproducible severe tenderness over the right anterior chest wall over the ribs. Patient has most likely a rib contusion possible fracture to the right anterior chest wall. Patient has no evidence of cardiac event she has a normal stress test CT shows no evidence of PE. Patient's labwork is unremarkable. Patient will be discharged at this time. Patient is advised follow-up with PCP and return for any worsening symptoms. Disposition Clinical Impression: Chest wall contusion, Chest wall pain Disposition: HOME SELF-CARE Condition: Stable Instructions: Rib Contusion (ED) Additional Instructions: Please return to the Emergency Department if symptoms worsen or any other concerns. Referrals: Jessica Arroyo MD [Primary Care Provider] - 1-2 days Time of Disposition: 18:25
[2017-05-08 18:02] VITALS: RESP 16
--- NOTE | 2017-05-08 18:06 | CT ---
EXAMINATION TYPE: CT chest angio for PE DATE OF EXAM: 05/08/2017 COMPARISON: CTA chest March 17, 2015 HISTORY: Right sided chest pain with shortness of breath CT DLP: 169.4 mGycm. Automated Exposure Control for Dose Reduction was Utilized. CONTRAST: CTA scan of the thorax is performed with IV Contrast, patient injected with 100 mL of Omnipaque 350, pulmonary embolism protocol. MIP Images are created on CT scanner and reviewed. FINDINGS: LUNGS: There is mild underlying emphysematous change with moderate parenchymal/pleural apical scarrin g identified bilaterally. No suspicious consolidation or groundglass opacity is seen. No pleural effu jovana or pneumothorax is present bilaterally. Tracheobronchial tree is patent. MEDIASTINUM: There is satisfactory enhancement of the pulmonary artery and its branches, there is no CT evidence for pulmonary embolism. There are no greater than 1 cm hilar or mediastinal lymph nodes . No cardiomegaly or pericardial effusion is seen. There is coronary artery calcification and/or st ents redemonstrated. OTHER: Moderate multilevel spurring in thoracic spine is redemonstrated mid to lower aspects. IMPRESSION: No CT evidence for pulmonary embolism. Mild emphysematous change without acute pulmonary process.
[2017-05-08 18:41] VITALS: BP 182/91; PULSE 82; TEMP 98.2
== END 2017-05-08 18:41 | disposition home or self-care (01) ==
LOC: EC 16:25
DX: S20.211A Contusion of right front wall of thorax, initial encounter (principal); K21.9 Gastro-esophageal reflux disease without esophagitis; F41.9 Anxiety disorder, unspecified; F32.9 Major depressive disorder, single episode, unspecified; F17.200 Nicotine dependence, unspecified, uncomplicated; W19.XXXA Unspecified fall, initial encounter
CPT/HCPCS: 36415; 93005; 85379; 83880; 80053; 82550; 82553; 83690; 83735; 84484; 85025; 85610; 85730; 71020; 71275; 99284; Q9967

== ENCOUNTER 2018-04-09 13:11 | Observation (INO) | payer OTHER, MEDICARE ==
[2018-04-09] MEDS ORDERED: ASPIRIN 81 MG PO STA (13:37)
[2018-04-09] MEDS ORDERED: NITROGLYCERIN OINT 1 INCH/GM PACKET TOPICAL STA (13:37)
--- NOTE | 2018-04-09 13:39 | ED ---
General Adult HPI - General Chief complaint: Chest Pain Stated complaint: chest pain Time Seen by Provider: 04/09/18 13:20 Source: patient, RN notes reviewed Mode of arrival: wheelchair Limitations: no limitations - History of Present Illness Initial comments: Patient is a pleasant [age]-year-old female presenting to the emergency Department with complaints of chest discomfort. Onset of symptoms was yesterday. Symptoms have been waxing and waning. Discomfort is mild at this time. Patient has not noticed increased discomfort with exertion. Discomfort is described as an ache. No radiation. No associated dyspnea, nausea, or diaphoresis. No history of similar symptoms previously. - Related Data Home Medications Medication Instructions Recorded Confirmed LORazepam [Ativan] 1 mg PO DAILY 02/12/15 04/09/18 Sertraline [Zoloft] 50 mg PO DAILY 02/12/15 04/09/18 Multivitamins, Thera [Multivitamin 1 tab PO DAILY 07/28/16 04/09/18 (formulary)] Aspirin EC [Ecotrin Low Dose] 81 mg PO DAILY 04/09/18 04/09/18 Allergies Allergy/AdvReac Type Severity Reaction Status Date / Time No Known Allergies Allergy Verified 04/09/18 14:09 Review of Systems ROS Statement: Those systems with pertinent positive or pertinent negative responses have been documented in the HPI. ROS Other: All systems not noted in ROS Statement are negative. Constitutional: Denies: fever Eyes: Denies: eye pain ENT: Denies: ear pain Respiratory: Denies: cough, dyspnea Cardiovascular: Reports: chest pain Endocrine: Denies: fatigue Gastrointestinal: Denies: abdominal pain Genitourinary: Denies: dysuria Musculoskeletal: Denies: back pain Skin: Denies: rash Neurological: Denies: weakness Past Medical History Past Medical History: GERD/Reflux, Osteoarthritis (OA) Additional Past Medical History / Comment(s): anemia. History of Any Multi-Drug Resistant Organisms: None Reported Past Surgical History: Joint Replacement, Orthopedic Surgery Additional Past Surgical History / Comment(s): C SECTION X2., ANTERIOR TOTAL LEFT HIP, r hip replacement Past Anesthesia/Blood Transfusion Reactions: No Reported Reaction Past Psychological History: Anxiety, Depression Smoking Status: Current every day smoker Past Alcohol Use History: Occasional Past Drug Use History: None Reported - Past Family History Mother Family Medical History: Deep Vein Thrombosis (DVT) General Exam Limitations: no limitations General appearance: alert, in no apparent distress Head exam: Present: atraumatic Eye exam: Present: normal appearance, PERRL ENT exam: Present: normal oropharynx Neck exam: Present: normal inspection Respiratory exam: Present: normal lung sounds bilaterally. Absent: chest wall tenderness Cardiovascular Exam: Present: regular rate, normal rhythm Expanded Peripheral pulses: 2+: Radial (R), Radial (L), Dorsalis Pedis (R), Dorsalis Pedis (L) GI/Abdominal exam: Present: soft. Absent: distended, tenderness Extremities exam: Present: normal inspection. Absent: pedal edema, calf tenderness Neurological exam: Present: alert Psychiatric exam: Present: normal affect, normal mood Skin exam: Present: normal color Course Vital Signs 04/09/18 04/09/18 13:14 14:18 Temperature 98.1 F Pulse Rate 94 74 Respiratory 18 18 Rate Blood Pressure 125/79 124/74 O2 Sat by Pulse 99 100 Oximetry EKG Findings - EKG Comments: EKG Findings:: Normal sinus rhythm 79. AK 184. QRS 72. QT 386. QTc 442. Normal axis. Normal QRS. No acute ST change. Medical Decision Making - Medical Decision Making Patient reevaluated and resting comfortably in bed. Patient still with only mild symptoms at this time. Patient updated on results and plan. Dr. Esquivel has been paged for admission for Dr. Lyn. - Lab Data Result diagrams: 04/09/18 13:28 04/09/18 13:36 Lab Results 04/09/18 04/09/18 04/09/18 Range/Units 13:28 13:28 13:28 WBC 6.2 (3.8-10.6) k/uL RBC 4.39 (3.80-5.40) m/uL Hgb 13.8 (11.4-16.0) gm/dL Hct 42.4 (34.0-46.0) % MCV 96.7 (80.0-100.0) fL MCH 31.5 (25.0-35.0) pg MCHC 32.6 (31.0-37.0) g/dL RDW 13.5 (11.5-15.5) % Plt Count 318 (150-450) k/uL Neutrophils % 78 % Lymphocytes % 16 % Monocytes % 4 % Eosinophils % 1 % Basophils % 0 % Neutrophils # 4.8 (1.3-7.7) k/uL Lymphocytes # 1.0 (1.0-4.8) k/uL Monocytes # 0.3 (0-1.0) k/uL Eosinophils # 0.0 (0-0.7) k/uL Basophils # 0.0 (0-0.2) k/uL PT 10.3 (9.0-12.0) sec INR 1.1 (<1.2) APTT 22.8 (22.0-30.0) sec Sodium (137-145) mmol/L Potassium (3.5-5.1) mmol/L Chloride (98-107) mmol/L Carbon Dioxide (22-30) mmol/L Anion Gap mmol/L BUN (7-17) mg/dL Creatinine (0.52-1.04) mg/dL Est GFR (CKD-EPI)AfAm (>60 ml/min/1.73 sqM) Est GFR (CKD-EPI)NonAf (>60 ml/min/1.73 sqM) Glucose (74-99) mg/dL Calcium (8.4-10.2) mg/dL Magnesium (1.6-2.3) mg/dL Total Bilirubin (0.2-1.3) mg/dL AST (14-36) U/L ALT (9-52) U/L Alkaline Phosphatase (38-126) U/L Total Creatine Kinase 113 (30-135) U/L CK-MB (CK-2) 1.6 (0.0-2.4) ng/mL CK-MB (CK-2) Rel Index 1.4 Troponin I <0.012 (0.000-0.034) ng/mL Total Protein (6.3-8.2) g/dL Albumin (3.5-5.0) g/dL 04/09/18 Range/Units 13:36 WBC (3.8-10.6) k/uL RBC (3.80-5.40) m/uL Hgb (11.4-16.0) gm/dL Hct (34.0-46.0) % MCV (80.0-100.0) fL MCH (25.0-35.0) pg MCHC (31.0-37.0) g/dL RDW (11.5-15.5) % Plt Count (150-450) k/uL Neutrophils % % Lymphocytes % % Monocytes % % Eosinophils % % Basophils % % Neutrophils # (1.3-7.7) k/uL Lymphocytes # (1.0-4.8) k/uL Monocytes # (0-1.0) k/uL Eosinophils # (0-0.7) k/uL Basophils # (0-0.2) k/uL PT (9.0-12.0) sec INR (<1.2) APTT (22.0-30.0) sec Sodium 138 (137-145) mmol/L Potassium 4.9 (3.5-5.1) mmol/L Chloride 106 (98-107) mmol/L Carbon Dioxide 24 (22-30) mmol/L Anion Gap 8 mmol/L BUN 25 H (7-17) mg/dL Creatinine 0.72 (0.52-1.04) mg/dL Est GFR (CKD-EPI)AfAm >90 (>60 ml/min/1.73 sqM) Est GFR (CKD-EPI)NonAf 87 (>60 ml/min/1.73 sqM) Glucose 114 H (74-99) mg/dL Calcium 10.1 (8.4-10.2) mg/dL Magnesium 2.0 (1.6-2.3) mg/dL Total Bilirubin 0.7 (0.2-1.3) mg/dL AST 28 (14-36) U/L ALT 28 (9-52) U/L Alkaline Phosphatase 71 (38-126) U/L Total Creatine Kinase (30-135) U/L CK-MB (CK-2) (0.0-2.4) ng/mL CK-MB (CK-2) Rel Index Troponin I (0.000-0.034) ng/mL Total Protein 6.9 (6.3-8.2) g/dL Albumin 4.2 (3.5-5.0) g/dL - Radiology Data Radiology results: image reviewed (Chest x-ray shows no acute process) Disposition Clinical Impression: Chest pain Disposition: ADMITTED IP TO THIS [facility] Is patient prescribed a controlled substance at d/c from ED?: No Referrals: Mari Lyn III, MD [Primary Care Provider] - 1-2 days Decision Time: 14:42
[2018-04-09 13:52] LABS: Basophils % (A) 0 %; Eosinophils % (A) 1 %; HCT 42.4 % (34.0-46.0); HGB 13.8 gm/dL (11.4-16.0); Lymphocytes % (A) 16 %; MCH 31.5 pg (25.0-35.0); MCHC 32.6 g/dL (31.0-37.0); MCV 96.7 fL (80.0-100.0); Monocytes # (A) 0.3 k/uL (0-1.0); Monocytes % (A) 4 %; Neutrophils # (A) 4.8 k/uL (1.3-7.7); Neutrophils % (A) 78 %; Platelet Count 318 k/uL (150-450); RBC 4.39 m/uL (3.80-5.40); RDW 13.5 % (11.5-15.5); WBC 6.2 k/uL (3.8-10.6)
[2018-04-09 14:00] LABS: INR 1.1 (<1.2); Partial Thromboplastin Time 22.8 sec (22.0-30.0); Prothrombin Time 10.3 sec (9.0-12.0)
--- NOTE | 2018-04-09 14:00 | XR ---
EXAMINATION TYPE: XR chest 2V DATE OF EXAM: 04/09/2018 COMPARISON: 05/08/2017 HISTORY: Chest pain TECHNIQUE: Frontal and lateral views of the chest are obtained. FINDINGS: There is no focal air space opacity, pleural effusion, or pneumothorax seen. The cardiac silhouette size is within normal limits. The osseous structures are intact. There is pulmonary hype rinflation suggesting underlying pulmonary emphysema. Mild multilevel degenerative changes of the tho racic spine are noted. IMPRESSION: No acute cardiopulmonary process.
[2018-04-09 14:08] LABS: ALT 28 U/L (9-52); AST 28 U/L (14-36); Albumin 4.2 g/dL (3.5-5.0); Alkaline Phosphatase 71 U/L (38-126); Anion Gap 8 mmol/L; Blood Urea Nitrogen 25 mg/dL (7-17); Calcium 10.1 mg/dL (8.4-10.2); Carbon Dioxide 24 mmol/L (22-30); Chloride 106 mmol/L (98-107); Glucose 114 mg/dL (74-99); Potassium 4.9 mmol/L (3.5-5.1); Sodium 138 mmol/L (137-145); Total Bilirubin 0.7 mg/dL (0.2-1.3); Total Protein 6.9 g/dL (6.3-8.2)
[2018-04-09 14:14] LABS: Creatine Kinase 113 U/L (30-135)
[2018-04-09 14:27] LABS: Creatine Kinase MB 1.6 ng/mL (0.0-2.4); Troponin I <0.012 ng/mL (0.000-0.034)
[2018-04-09] MEDS ORDERED: NITROGLYCERIN SL TABS 0.4 MG TAB SUBLINGUAL PRN (14:43)
[2018-04-09] MEDS: NITROGLYCERIN OINT 1 INCH/GM PACKET TOPICAL SCH ×2 (18:23→23:10)
[2018-04-09] MEDS ORDERED: TEMAZEPAM 15 MG CAP PO PRN (19:00)
[2018-04-09] MEDS ORDERED: ALPRAZolam 0.25 MG TAB PO PRN (19:00)
[2018-04-09 19:56] VITALS: RESP 16
[2018-04-09 20:01] LABS: Creatine Kinase 124 U/L (30-135)
[2018-04-09 20:14] LABS: Creatine Kinase MB 1.7 ng/mL (0.0-2.4); Troponin I <0.012 ng/mL (0.000-0.034)
--- NOTE | 2018-04-09 20:58 | HP ---
HISTORY AND PHYSICAL DATE OF SERVICE: 04/09/2018 CHIEF COMPLAINT: Chest pain. HISTORY OF PRESENT ILLNESS: This 68-year-old woman with a past medical history of multiple medical problems including GERD, DJD, anemia, diverticulosis, DJD, anxiety, depression being followed by Dr. Lyn's office has presented to [facility] complaining of chest pain. The patient described the pain in the lower part of the chest which started yesterday. The patient was apparently pulling in some trash cans also. There is no history of radiation of pain. The symptoms of waxing and waning and the patient is admitted for further evaluation and treatment. There is no history of fever rigors and chills. No history of headache, loss of consciousness, seizures. PAST MEDICAL HISTORY: History of GERD, DJD, anemia, history of , anxiety and depression. MEDICATIONS: Prior to admission include: 1. Zoloft 50 mg daily. 2. Multivitamins 1 p.o. daily. 3. Ativan 1 mg b.i.d. 4. Ecotrin 81 mg daily. ALLERGIES: Allergies are none. FAMILY HISTORY: History of DVT in the family. Mental illness in the family. SOCIAL HISTORY: History of alcohol, smoking half packet. REVIEW OF SYSTEMS: ENT: No diminished hearing or diminished vision. CARDIOVASCULAR: As mentioned earlier. RESPIRATORY: As mentioned earlier. GI: No nausea or vomiting. no dysuria. Nervous system: No numbness or weakness. Allergy/Immunology: No asthma or hayfever. Musculoskeletal as mentioned earlier. Hematology/Oncology: No history of anemia. Endocrine: No history of diabetes or hypothyroidism. CONSTITUTIONAL: As mentioned earlier. Dermatology: Negative. Rheumatology: Negative. Psychiatry: As mentioned earlier. PHYSICAL EXAMINATION: Alert, oriented times three, pulse 58, blood pressure 159/68, respiration 18, temperature 97.9, pulse ox 98% on room air. HEENT: Conjunctivae normal. Oral mucosa moist. Neck is no jugular venous distention. No carotid bruit. No lymph node enlargement. Cardiovascular system: S1, S2 muffled. No S3, no S4. Respiratory: Breath sounds diminished in the bases. A few scattered rhonchi. No crackles. ABDOMEN: Soft, nontender. No mass palpable. Legs: No edema. No swelling. NERVOUS SYSTEM: Higher functions as mentioned earlier. Moves all 4 limbs. No focal motor or sensory deficits. Lymphatics: No lymph nodes palpable in the neck, axillae or groin. SKIN: No ulcer, rash or bleeding. JOINTS: No active deforming arthropathy. LABS: CBC within normal limits. BMP shows sodium is 138. Troponins are negative. EKG showed no acute changes and a chest x-ray was also within normal limits. ASSESSMENT: 1. Chest pain possible unstable angina. 2. Degenerative joint disease. 3. History of gastroesophageal reflux disease. 4. History of anemia. 5. Degenerative joint disease. 6. History of . 7. History of anxiety/depression. RECOMMENDATIONS AND DISCUSSION: In this 68-year-old woman who presented with multiple complex medical issues, we will monitor the patient closely, continue the current medications, management and symptomatic treatment. We will initiate symptomatic treatment. I would also recommend resume the home medications and cardiology consultation, possible stress test. N.p.o. after midnight to rule out myocardial infarction. Guarded prognosis. Further recommendations to follow. Copy of dictation forwarded to Dr. Lyn who is the primary physician. MMODL / IJN: [id number] /
[2018-04-09] MEDS ORDERED: ACETAMINOPHEN TAB 325 MG TAB PO PRN (21:13)
[2018-04-09] MEDS: LORazepam 1 MG TAB PO SCH (21:16)
[2018-04-10] MEDS: NITROGLYCERIN OINT 1 INCH/GM PACKET TOPICAL SCH (01:16)
[2018-04-10 01:58] LABS: Creatine Kinase 121 U/L (30-135)
[2018-04-10 02:11] LABS: Creatine Kinase MB 1.5 ng/mL (0.0-2.4); Troponin I <0.012 ng/mL (0.000-0.034)
[2018-04-10] MEDS ORDERED: PANTOPRAZOLE 40 MG TABLET PO SCH (07:30)
[2018-04-10 08:18] VITALS: TEMP 98.2
[2018-04-10] MEDS ORDERED: ASPIRIN 325 MG TAB PO SCH (09:00)
[2018-04-10] MEDS ORDERED: NICOTINE 14MG/24HR PATCH TRANSDERM SCH (09:00)
[2018-04-10] MEDS ORDERED: MULTIVITAMINS, THERA 1 EACH TAB PO SCH (09:00)
[2018-04-10] MEDS ORDERED: SERTRALINE 50 MG TAB PO SCH (09:00)
[2018-04-10] MEDS ORDERED: ASPIRIN 81 MG PO SCH (09:00)
[2018-04-10 10:15] LABS: Cholesterol 217 mg/dL (<200); HDL Cholesterol 106 mg/dL (40-60); LDL Cholesterol,Calculated 101 mg/dL (0-99); Triglycerides 50 mg/dL (<150)
--- NOTE | 2018-04-10 10:44 | P.CRDCN ---
History of Present Illness History of present illness: This is a pleasant 68-year-old female past medical history significant for gastroesophageal reflux disease, osteoarthritis, chronic anemia and chronic nicotine dependence. She denies history of coronary artery disease , hypertension, diabetes mellitus and states that she has mildly elevated cholesterol for which she is attempting lifestyle modifications. She follows with Dr. Franklin in the office. We have asked to see her in consultation for chest pain. She states she started having an ache in the midsternal region Sunday evening. The pain first started when she was sitting down resting. There is no radiation to the arm, back, neck or jaw. No associated shortness of breath, dizziness, palpitations, nausea, vomiting or diaphoresis. The ache seems to be worse with movement of her torso or her arms. She thought the pain was possibly musculoskeletal since she had been moving some garbage cans from the road to her daughter's house earlier that day. Her symptoms were very intermittent all day yesterday usually persisted dictated by any sort of movement of her torso. At the time of my exam she is pain-free. EKG reveals sinus mechanism with no acute ST or T wave abnormalities noted. Chest x-ray is negative for acute cardiopulmonary process. Laboratory data reviewed, cardiac enzymes negative 3. Lipid profile, LDL 101, HDL 106, total cholesterol 217. Current cardiac medications include aspirin 81 mg daily. Most recent stress test performed March 2017 was negative for ischemia. Most recent echocardiogram performed 2014 reveals preserved left ventricular systolic function with ejection fraction of 60%. At the time of my exam: CONSTITUTIONAL: Denies fever. Denies chills. EYES: Denies blurred vision. Denies vision changes. Denies eye pain. EARS, NOSE, MOUTH & THROAT: Denies headache. Denies sore throat. Denies ear pain. CARDIOVASCULAR: Denies chest pain. Denies shortness of breath. Denies orthopnea. Denies PND. Denies palpitations. RESPIRATORY: Denies cough. GASTROINTESTINAL: Denies abdominal pain. Denies diarrhea. Denies constipation. Denies nausea. Denies vomiting. MUSCULOSKELETAL: Denies myalgias. INTEGUMENTARY: Denies pruitis. Denies rash. NEUROLOGIC: Denies numbness. Denies tingling. Denies weakness. PSYCHIATRIC: Denies anxiety. Denies depression. ENDOCRINE: Denies fatigue. Denies weight change. Denies polydipsia. Denies polyurina. GENITOURINARY: Denies burning, hematuria or urgency with micturation. HEMATOLOGIC: Denies history of anemia. Denies bleeding. Blood pressure 135/75 heart rate 68 afebrile maintaining oxygen saturation on room air GENERAL: This is a 68-year-old female in no apparent distress at the time of my examination. HEENT: Head is atraumatic, normocephalic. Pupils are equal, round. Sclerae anicteric. Conjunctivae are clear. Mucous membranes of the mouth are moist. Neck is supple. There is no jugular venous distention. No carotid bruit is heard. LUNGS: Clear to auscultation no wheezes, rales or rhonchi. No chest wall tenderness is noted on palpation or with deep breathing. HEART: Regular rate and rhythm without murmurs, rubs or gallops. S1 and S2 heard. ABDOMEN: Soft, nontender. Bowel sounds are heard. No organomegaly noted. EXTREMITIES: No evidence of peripheral edema and no calf tenderness noted. VASCULAR: Radial and dorsalis pedis pulses palpated, no evidence of clubbing. NEUROLOGIC: Patient is awake, alert and oriented x3. ASSESSMENT Musculoskeletal chest discomfort Chronic nicotine dependence PLAN An acute coronary event has been ruled out. Pain is musculoskeletal very atypical for angina. Obtain 2-D echocardiogram and Doppler study to assess cardiac structure and function. Increase activity and ambulation in the halls. Recommend anti-inflammatory medication for pain control. Smoking cessation recommended and lifestyle modifications recommended for lowering of LDL cholesterol. Follow-up with Dr. Franklin in the office at next regularly scheduled appointment in May. Nurse Practitioner note has been reviewed, I agree with a documented findings and plan of care. Patient was seen and examined. Past Medical History Past Medical History: GERD/Reflux, Osteoarthritis (OA) Additional Past Medical History / Comment(s): anemia.diverticulosis, colon polyps-benign, anx/depression History of Any Multi-Drug Resistant Organisms: None Reported Past Surgical History: Joint Replacement, Orthopedic Surgery Additional Past Surgical History / Comment(s): C SECTION X2., ANTERIOR TOTAL LEFT HIP, r hip replacement ,colonoscopy/polypectomy Past Anesthesia/Blood Transfusion Reactions: No Reported Reaction Smoking Status: Current every day smoker - Past Family History Father Additional Family Medical History / Comment(s): mental illness. in a fire at age 41 or 42 Mother Family Medical History: Deep Vein Thrombosis (DVT) Medications and Allergies Home Medications Medication Instructions Recorded Confirmed Type LORazepam [Ativan] 1 mg PO DAILY 02/12/15 04/09/18 History Sertraline [Zoloft] 50 mg PO DAILY 02/12/15 04/09/18 History Multivitamins, Thera [Multivitamin 1 tab PO DAILY 07/28/16 04/09/18 History (formulary)] Aspirin EC [Ecotrin Low Dose] 81 mg PO DAILY 04/09/18 04/09/18 History Allergies Allergy/AdvReac Type Severity Reaction Status Date / Time No Known Allergies Allergy Verified 04/09/18 14:09 Physical Exam Vitals: Vital Signs Temp Pulse Pulse Resp BP BP Pulse Ox 04/10/18 03:58 97.5 F L 68 16 137/75 98 04/10/18 03:06 16 04/09/18 23:53 98.2 F 71 16 122/73 97 04/09/18 23:51 16 04/09/18 20:00 16 04/09/18 19:55 97.4 F L 59 L 16 142/69 98 04/09/18 18:20 98 04/09/18 17:48 97.9 F 58 L 18 159/69 98 04/09/18 17:26 82 18 145/92 99 04/09/18 15:23 70 18 137/80 98 04/09/18 14:18 74 18 124/74 100 04/09/18 13:14 98.1 F 94 18 125/79 99 Intake and Output 04/09/18 04/09/18 04/10/18 14:59 22:59 06:59 Other: Voiding Method Toilet Toilet # Voids 1 Weight 56.699 kg Results 04/09/18 13:28 04/09/18 13:36 Cardiac Enzymes 04/09/18 04/09/18 04/09/18 Range/Units 13:28 13:36 19:30 AST 28 (14-36) U/L CK-MB (CK-2) 1.6 1.7 (0.0-2.4) ng/mL Troponin I <0.012 <0.012 (0.000-0.034) ng/mL 04/10/18 Range/Units 01:17 AST (14-36) U/L CK-MB (CK-2) 1.5 (0.0-2.4) ng/mL Troponin I <0.012 (0.000-0.034) ng/mL Coagulation 04/09/18 Range/Units 13:28 PT 10.3 (9.0-12.0) sec APTT 22.8 (22.0-30.0) sec CBC 04/09/18 Range/Units 13:28 WBC 6.2 (3.8-10.6) k/uL RBC 4.39 (3.80-5.40) m/uL Hgb 13.8 (11.4-16.0) gm/dL Hct 42.4 (34.0-46.0) % Plt Count 318 (150-450) k/uL Comprehensive Metabolic Panel 04/09/18 Range/Units 13:36 Sodium 138 (137-145) mmol/L Potassium 4.9 (3.5-5.1) mmol/L Chloride 106 (98-107) mmol/L Carbon Dioxide 24 (22-30) mmol/L BUN 25 H (7-17) mg/dL Creatinine 0.72 (0.52-1.04) mg/dL Glucose 114 H (74-99) mg/dL Calcium 10.1 (8.4-10.2) mg/dL AST 28 (14-36) U/L ALT 28 (9-52) U/L Alkaline Phosphatase 71 (38-126) U/L Total Protein 6.9 (6.3-8.2) g/dL Albumin 4.2 (3.5-5.0) g/dL Current Medications Generic Name Dose Route Start Last Admin Trade Name Freq PRN Reason Stop Dose Admin Acetaminophen 650 mg 04/09/18 21:13 Tylenol Tab PO Q4HR PRN Fever and/ or Pain Alprazolam 0.25 mg 04/09/18 19:00 Xanax PO TID PRN Anxiety Aspirin 81 mg 04/10/18 09:00 Aspirin PO DAILY [facility] Lorazepam 1 mg 04/09/18 19:15 04/09/18 21:16 Ativan PO 1 mg DAILY REGGIE Administration Multivitamins 1 each 04/10/18 09:00 Theragran PO DAILY [facility] Nicotine 1 patch 04/10/18 09:00 Habitrol 14mg/24hr Patch TRANSDERM DAILY [facility] Nitroglycerin 0.5 inch 04/09/18 18:00 04/10/18 01:16 Nitro-Bid Oint TOPICAL Not Given Q6HR [facility] Nitroglycerin 0.4 mg 04/09/18 14:43 Nitrostat SUBLINGUAL Q5M PRN Chest Pain Pantoprazole Sodium 40 mg 04/10/18 07:30 Protonix PO AC-BRKFST [facility] Sertraline HCl 50 mg 04/10/18 09:00 Zoloft PO DAILY [facility] Sodium Chloride 10 ml 04/09/18 21:00 04/09/18 21:15 Saline Flush IV 10 ml BID [facility] Administration Temazepam 15 mg 04/09/18 19:00 Restoril PO HS PRN Insomnia Intake and Output 04/09/18 04/09/18 04/10/18 14:59 22:59 06:59 Other: Voiding Method Toilet Toilet # Voids 1 Weight 56.699 kg Patient Weight 04/10/18 06:59 Weight 56.699 kg 04/09/18 13:28 04/09/18 13:36
[2018-04-10] MEDS: LORazepam 1 MG TAB PO SCH (11:46)
[2018-04-10 12:16] VITALS: BP 118/66; PULSE 69
--- NOTE | 2018-04-10 15:45 | ECHOF ---
Referral Reason: MEASUREMENTS -------- HEIGHT: 167.6 cm WEIGHT: 56.7 kg BP: 137/75 RVIDd: 2.8 cm (< 3.3) IVSd: 1.3 cm (0.6 - 1.1) LVIDd: 3.5 cm (3.9 - 5.3) LVPWd: 1.3 cm (0.6 - 1.1) IVSs: 1.7 cm LVIDs: 2.6 cm LVPWs: 1.9 cm LA Diam: 2.7 cm (2.7 - 3.8) LAESV Index (A-L): 13.45 ml/m Ao Diam: 3.2 cm (2.0 - 3.7) AV Cusp: 1.9 cm (1.5 - 2.6) MV EXCURSION: 17.918 mm (> 18.000) MV EF SLOPE: 78 mm/s (70 - 150) EPSS: 1.0 cm MV E Jimmy: 0.97 m/s MV DecT: 237 ms MV A Jimmy: 0.83 m/s MV E/A Ratio: 1.17 RAP: 5.00 mmHg RVSP: 24.03 mmHg FINDINGS -------- Sinus rhythm. This was a technically good study. The left ventricular size is normal. There is mild concentric left ventricular hypertrophy. Overa ll left ventricular systolic function is normal with, an EF between 55 - 60 %. The right ventricle is normal in size. Normal LA size by volume 22+/-6 ml/m2. The right atrium is normal in size. Aortic valve is trileaflet and is mildly thickened. The mitral valve is normal. Mild tricuspid regurgitation present. Right ventricular systolic pressure is normal at < 35 mmHg. There is no pulmonic regurgitation present. The aortic root size is normal. Normal inferior vena cava with normal inspiratory collapse consistent with estimated right atrial pre ssure of 5 mmHg. There is no pericardial effusion. CONCLUSIONS -------- 1. Sinus rhythm. 2. This was a technically good study. 3. The left ventricular size is normal. 4. There is mild concentric left ventricular hypertrophy. 5. Overall left ventricular systolic function is normal with, an EF between 55 - 60 %. 6. The right ventricle is normal in size. 7. Normal LA size by volume 22+/-6 ml/m2. 8. The right atrium is normal in size. 9. Aortic valve is trileaflet and is mildly thickened. 10. The mitral valve is normal. 11. Mild tricuspid regurgitation present. 12. Right ventricular systolic pressure is normal at < 35 mmHg. 13. There is no pulmonic regurgitation present. 14. The aortic root size is normal. 15. Normal inferior vena cava with normal inspiratory collapse consistent with estimated right atrial pressure of 5 mmHg. 16. There is no pericardial effusion. SCRATCHER TENDER: Corrine Hinds RDCS
--- NOTE | 2018-04-11 01:14 | DS ---
DISCHARGE SUMMARY FINAL DIAGNOSES: 1. Chest pain, myocardial infarction ruled out. 2. Degenerative joint disease. 3. History of gastroesophageal reflux disease. 4. History of anemia. 5. History of . 6. Anxiety, depression. DISCHARGE DISPOSITION: The patient is stable for discharge. Cardiology cleared for discharge. HISTORY OF PRESENT ILLNESS: This 68-year-old woman with past medical history of multiple medical problems, was admitted with chest pain. Myocardial infarction ruled out. Cardiology saw the patient and recommended outpatient followup. The patient discharged in stable condition. Guarded prognosis. PHYSICAL EXAMINATION: On exam, vitals are stable. Cardio system: S1, S2. Abdomen soft, nontender. Nervous system: No focal deficits. DISCHARGE ADVICE AND MEDICATIONS: 1. Diet is cardiac diet. 2. Activity limited until follow up. 3. Follow up with Dr. Lyn in 2-3 days. 4. Follow up with cardiology as recommended. 5. Outpatient stress test per Cardiology. MEDICATIONS ARE: 1. Aspirin 81 mg p.o. daily. 2. Ativan 1 mg b.i.d. 3. Multivitamins one p.o. daily. 4. Zoloft 50 mg p.o. daily. 5. Lipitor 10 mg p.o. daily. Once again, the patient will be discharged in stable condition with guarded prognosis. Diet is low cholesterol, low fat. MMODL / IJN: [id number] /
== END 2018-04-10 16:20 | disposition other institution (70) ==
LOC: EC 13:11 → 1SOBS 14:45
PROVIDERS: ADMIT Hospitalist; ATTEND Hospitalist
DX: R07.89 Other chest pain (principal); M19.90 Unspecified osteoarthritis, unspecified site; K21.9 Gastro-esophageal reflux disease without esophagitis; D64.9 Anemia, unspecified; F41.9 Anxiety disorder, unspecified; F32.9 Major depressive disorder, single episode, unspecified; E78.00 Pure hypercholesterolemia, unspecified; Z79.899 Other long term (current) drug therapy; Z79.82 Long term (current) use of aspirin; Z83.2 Family history of diseases of the blood and blood-forming organs and certain disorders involving the immune mechanism; Z81.8 Family history of other mental and behavioral disorders; F17.210 Nicotine dependence, cigarettes, uncomplicated; Z86.010 Personal history of colon polyps
CPT/HCPCS: 99285; 36415; 93005; 93306; 80061; 80053; 82550 ×2; 82553 ×2; 83735; 84484 ×2; 85025; 85610; 85730; 71046; G0378 ×2; S4990

== ENCOUNTER → 2018-05-31 | Outpatient (CLI) | payer OTHER, MEDICARE ==
--- NOTE | 2018-05-31 13:38 | CTL ---
EXAMINATION TYPE: CT Low Dose Lung DATE OF EXAM ORDERED: 05/31/2018 HISTORY: . Lung cancer screening CT DLP: 61.[address] CTDI: 1.8 mGy Automated exposure control for dose reduction was used. SCREENING VISIT: COMPARISON: 05/08/2017 TECHNIQUE: Low dose computed tomography scan was performed through the chest at 1 mm thick sections a nd reconstructed images in the coronal plane at [address] DIAGNOSTIC QUALITY: Satisfactory FINDINGS: LUNG NODULES: There is a 5 mm subpleural nodule within the right upper lobe posteriorly. There is additional 4 mm s ubpleural nodule right upper lobe. Multiple additional less than 3 mm subpleural nodules are seen pos teriorly within both lungs. X line there is a 3 mm calcified granuloma in the lingular segment left u pper lobe image 167. LUNGS: There is evidence of central and basilar bronchiectasis. Linear changes involving both lungs likely o n the basis of scar or atelectasis. No consolidative pneumonia. Paraseptal emphysematous changes note d. PLEURAL SPACE: A pleural thickening is noted bilaterally with no pleural effusion or pneumothorax. HEART: Heart size is normal. There is coronary artery calcification but no sizable pericardial effusion. OTHER FINDINGS: Hypertrophic and degenerative change of the spine. Tiny hypodensity in the dome of the liver is too s mall to characterize. Findings stable from prior exam and likely related to a small cyst. IMPRESSION: 1. There are multiple small 5 mm left subpleural nodules within the lungs which are likely benign. Du e to their small size they are too small to accurately characterize and nonspecific. Additional calci fied granuloma in the left upper lobe also noted. FOLLOW UP CT CHEST RECOMMENDATION: Six-month follow-up CT scan recommended CT LUNG RAD: 2
== END | disposition home or self-care (01) ==
LOC: RADCTMAIN 11:50
PROVIDERS: ATTEND Family Medicine
DX: J84.10 Pulmonary fibrosis, unspecified (principal); R91.8 Other nonspecific abnormal finding of lung field; Z87.891 Personal history of nicotine dependence

== ENCOUNTER → 2018-05-31 | Outpatient (CLI) | payer OTHER, MEDICARE ==
--- NOTE | 2018-06-07 08:42 | MM ---
Reason for exam: screening (asymptomatic). Last mammogram was performed 1 year and 1 month ago. History: Patient is postmenopausal. Family history of breast cancer in maternal aunt. Benign excisional biopsy of the right breast, 1998. MG 3D Screening Mammo W/Cad Bilateral CC and MLO view(s) were taken. Prior study comparison: April 16, 2017, bilateral MG 3d screening mammo w/cad. March 29, 2016, bilateral MG 3d diag mammo w/cad [facility]EDY. The breast tissue is heterogeneously dense. This may lower the sensitivity of mammography. No suspicious abnormality. No significant changes when compared with prior studies. ASSESSMENT: Benign, BI-RAD 2 RECOMMENDATION: Routine screening mammogram of both breasts in 1 year.
== END | disposition home or self-care (01) ==
LOC: RADMAMWWP 11:26
PROVIDERS: ATTEND Nurse Practitioner Family
DX: Z12.31 Encounter for screening mammogram for malignant neoplasm of breast (principal)
CPT/HCPCS: 77063; 77067

== ENCOUNTER 2019-01-09 15:29 | Observation (INO) | payer OTHER, MEDICARE ==
[2019-01-09] MEDS ORDERED: SODIUM CHLORIDE 0.9% 1,000 ML IV STA (16:13)
[2019-01-09 16:34] LABS: Basophils % (A) 1 %; Eosinophils # (A) 0.3 k/uL (0-0.7); Eosinophils % (A) 4 %; HCT 37.5 % (34.0-46.0); HGB 12.2 gm/dL (11.4-16.0); Lymphocytes # (A) 1.2 k/uL (1.0-4.8); Lymphocytes % (A) 19 %; MCHC 32.5 g/dL (31.0-37.0); MCV 95.2 fL (80.0-100.0); Mean Platelet Volume 7.9; Monocytes # (A) 0.4 k/uL (0-1.0); Monocytes % (A) 7 %; Neutrophils # (A) 4.2 k/uL (1.3-7.7); Neutrophils % (A) 67 %; Platelet Count 226 k/uL (150-450); RBC 3.94 m/uL (3.80-5.40); RDW 14.1 % (11.5-15.5); WBC 6.3 k/uL (3.8-10.6)
--- NOTE | 2019-01-09 16:39 | XR ---
EXAMINATION TYPE: XR chest 2V DATE OF EXAM: 01/09/2019 COMPARISON: 04/09/2018 HISTORY: Chest pain TECHNIQUE: Frontal and lateral views of the chest are obtained. FINDINGS: Heart and mediastinum are normal. Lungs are clear of infiltrate. There is no pleural effus ion. Bony thorax is intact. There is mild pleural thickening at the lung apices. IMPRESSION: No active cardiopulmonary disease. Mild scarring at the lung apices. No significant horvath ge.
[2019-01-09 16:43] LABS: Albumin 4.2 g/dL (3.5-5.0); Calcium 9.4 mg/dL (8.4-10.2); Magnesium 1.9 mg/dL (1.6-2.3); Potassium 4.7 mmol/L (3.5-5.1); Total Bilirubin 0.5 mg/dL (0.2-1.3); Total Protein 6.4 g/dL (6.3-8.2)
[2019-01-09 16:46] LABS: Prothrombin Time 10.7 sec (9.0-12.0)
--- NOTE | 2019-01-09 17:38 | ED ---
Chest Pain HPI - General Chief Complaint: Chest Pain Stated Complaint: Chest pain Time Seen by Provider: 01/09/19 16:07 Source: patient Mode of arrival: wheelchair Limitations: no limitations - History of Present Illness Initial Comments: Patient is 68-year-old female presenting to emergency Department with a chief complaint of chest pain and burning feeling. Patient reports she developed mild chest discomfort and burning sensation near the epigastric region. Patient reports the sensation comes and goes and is not related to food intake. Patient reports a burning sensation does not radiate anywhere. Patient reports the pain is not exertional and there is no alleviating or aggravating factors. Patient denies a history of GERD. Patient denies diaphoresis, syncope, light headedness, dizziness or blurry vision. Patient reports intermittent shortness of breath especially a full inspiration. Patient is a smoker and has hypercholesterolemia. Patient reports a family history of cardiovascular disease. Patient denies taking medication to relieve the symptoms. - Related Data Home Medications Medication Instructions Recorded Confirmed LORazepam [Ativan] 1 mg PO DAILY 02/12/15 01/09/19 Sertraline [Zoloft] 50 mg PO DAILY 02/12/15 01/09/19 Multivitamins, Thera [Multivitamin 1 tab PO DAILY 07/28/16 01/09/19 (formulary)] Aspirin EC [Ecotrin Low Dose] 81 mg PO DAILY 04/09/18 01/09/19 Previous Rx's Medication Instructions Recorded Atorvastatin Calcium [Lipitor] 10 mg PO DAILY #30 tab 04/10/18 Allergies Allergy/AdvReac Type Severity Reaction Status Date / Time No Known Allergies Allergy Verified 01/09/19 15:59 Review of Systems ROS Statement: Those systems with pertinent positive or pertinent negative responses have been documented in the HPI. ROS Other: All systems not noted in ROS Statement are negative. EKG Findings - EKG Comments: EKG Findings:: Normal sinus rhythm. Ventricular rate 80, UT interval 198, care is duration 72, QT/QTC 370/435, P-R-T aces 76 73 33 Past Medical History Past Medical History: GERD/Reflux, Osteoarthritis (OA) Additional Past Medical History / Comment(s): anemia.diverticulosis, colon polyps-benign, anx/depression History of Any Multi-Drug Resistant Organisms: None Reported Past Surgical History: Joint Replacement, Orthopedic Surgery Additional Past Surgical History / Comment(s): C SECTION X2., ANTERIOR TOTAL LEFT HIP, r hip replacement ,colonoscopy/polypectomy Past Anesthesia/Blood Transfusion Reactions: No Reported Reaction Past Psychological History: Anxiety, Depression Smoking Status: Current every day smoker Past Alcohol Use History: None Reported Past Drug Use History: None Reported - Past Family History Father Additional Family Medical History / Comment(s): mental illness. in a fire at age 41 or 42 Mother Family Medical History: Deep Vein Thrombosis (DVT) General Exam Limitations: no limitations General appearance: alert, in no apparent distress Head exam: Present: atraumatic, normocephalic, normal inspection Eye exam: Present: normal appearance, PERRL, EOMI Pupils: Present: normal accommodation ENT exam: Present: normal exam, mucous membranes moist, normal external ear exam Neck exam: Present: normal inspection, full ROM Respiratory exam: Present: normal lung sounds bilaterally Cardiovascular Exam: Present: regular rate, normal rhythm, normal heart sounds GI/Abdominal exam: Present: soft, normal bowel sounds. Absent: tenderness (No epigastric tenderness with palpation) Extremities exam: Present: normal inspection, full ROM Back exam: Present: normal inspection, full ROM Neurological exam: Present: alert, oriented X3 Psychiatric exam: Present: normal affect, normal mood Skin exam: Present: warm, intact, normal color Course Vital Signs 01/09/19 01/09/19 15:31 18:57 Temperature 97.9 F Pulse Rate 79 68 Respiratory 16 18 Rate Blood Pressure 122/71 149/89 O2 Sat by Pulse 99 97 Oximetry Chest Pain [facility] - Differential Diagnosis AMI, ACS, GERD, Esophageal Spasm - [facility] Patient is 68-year-old male presenting to emergency Department with a chief complaint of burning chest pain. Patient reports the pain for 3 hours and is not alleviated with any specific movements. Patient reports the pain is not related to oral intake. Pain does not radiate anywhere. Patient does have risk factors for ACS which include age, hypercholesterolemia, smoking and family history. Cardiac workup was initiated. Troponin is a negative. Rest of labs are unremarkable. Chest x-ray showing bilateral lung scarring at the apices. EKG, is showing normal sinus rhythm. At this point patient will be admitted for observation and serial troponins. Laboratory, imaging studies and admitting decisions were thoroughly discussed the patient was understanding and agreeable. All questions were answered. Case discussed with Dr. Kimbrough. Admitting physician is Dr. Esquivel. Cardiology consulted. Disposition Clinical Impression: Chest pain Disposition: ADMITTED IP TO THIS HOSP Condition: Stable Is patient prescribed a controlled substance at d/c from ED?: No Time of Disposition: 19:26
[2019-01-09] MEDS ORDERED: NALOXONE 0.4 MG/ML 1 ML VIAL IV PRN (18:17)
[2019-01-09] MEDS ORDERED: SODIUM CHLORIDE 0.9% 1,000 ML IV SCH (18:30)
[2019-01-10] MEDS: LORATADINE 10 MG TAB PO SCH ×2 (00:35→11:50)
[2019-01-10 04:35] LABS: Basophils % (A) 0 %; Eosinophils # (A) 0.5 k/uL (0-0.7); Eosinophils % (A) 7 %; HCT 40.4 % (34.0-46.0); HGB 13.2 gm/dL (11.4-16.0); Lymphocytes % (A) 26 %; MCH 31.4 pg (25.0-35.0); MCHC 32.7 g/dL (31.0-37.0); MCV 95.9 fL (80.0-100.0); Mean Platelet Volume 7.6; Monocytes # (A) 0.5 k/uL (0-1.0); Monocytes % (A) 6 %; Neutrophils # (A) 4.4 k/uL (1.3-7.7); Neutrophils % (A) 59 %; Platelet Count 255 k/uL (150-450); RBC 4.21 m/uL (3.80-5.40); RDW 14.3 % (11.5-15.5); WBC 7.6 k/uL (3.8-10.6)
[2019-01-10 04:43] LABS: African American GFR (CKD) >90 (>60 ml/min/1.73 sqM); Anion Gap 6 mmol/L; Blood Urea Nitrogen 20 mg/dL (7-17); Calcium 9.3 mg/dL (8.4-10.2); Carbon Dioxide 27 mmol/L (22-30); Chloride 101 mmol/L (98-107); Glucose 95 mg/dL (74-99); Potassium 4.7 mmol/L (3.5-5.1); Sodium 134 mmol/L (137-145)
--- NOTE | 2019-01-10 07:51 | HP ---
HISTORY AND PHYSICAL DATE OF SERVICE: 01/09/2019 CHIEF COMPLAINT: Chest pain. HISTORY OF PRESENT ILLNESS: This 68-year-old woman with a past medical history of multiple medical problems including history of GERD, history of DJD, history of anemia, history of anxiety, depression, being followed by Dr. Jessica Arroyo in the outpatient setting is not feeling well over the past several days. Patient had sinus drainage. The patient had significant cough and other symptoms. Patient went to urgent care center where the patient was given antibiotics but currently the patient complaining of chest pain which was burning in character near the epigastric lower chest area mid part of the chest and the patient came to [facility] admitted for further evaluation and treatment. There is no aggravation with cough, radiation anywhere, no excess sweating or palpitations. Initial troponins are negative at this time. The patient does not have any recent stress test. The cardiology evaluation in progress at this time. Unstable angina protocol is being noted. EKG did not show any acute abnormality except some nonspecific ST-T changes. There is no history of any fever, rigors or chills. No history of headache, loss of consciousness or seizures. PAST MEDICAL HISTORY: History of DJD, history of GERD, anxiety, depression. MEDICATIONS: Medications prior to admission include: 1. Zoloft 50 mg daily. 2. Multivitamins 1 p.o. daily. 3. Ativan 1 mg p.o. daily. 4. Lipitor 10 mg p.o. daily. 5. Ecotrin 81 mg p.o. daily. ALLERGIES: Allergies are none. FAMILY HISTORY: History of CHF, DVT and mental illness in the family. SOCIAL HISTORY: History of alcohol and history of continued smoking. REVIEW OF SYSTEMS: ENT: No diminished hearing or diminished vision. CARDIOVASCULAR SYSTEM: As mentioned earlier. RESPIRATORY SYSTEM: As mentioned earlier. GI: No nausea. : No dysuria. NERVOUS SYSTEM: No numbness or weakness. ALLERGY/IMMUNOLOGY: No asthma or hayfever. MUSCULOSKELETAL: As mentioned early. HEMATOLOGY/ONCOLOGY: No history of anemia. ENDOCRINE: No history of diabetes or hypothyroidism. CONSTITUTIONAL: As mentioned earlier. DERMATOLOGY: Negative. RHEUMATOLOGY: Negative. PSYCHIATRY: As mentioned earlier. PHYSICAL EXAMINATION: The patient is alert and oriented x3. Pulse 59, blood pressure 177/75, respirations 16, temperature 97.9, pulse ox 98% on room air. HEENT: Conjunctivae normal. Oral mucosa moist. NECK is no jugular venous distention. No carotid bruit. No lymph node enlargement. CARDIOVASCULAR: S1, S2 muffled. No S3, no S4. RESPIRATORY: Breath sounds diminished at the bases. No rhonchi. No crackles. ABDOMEN: Soft, nontender. No mass palpable. LEGS: No edema, no swelling. NERVOUS SYSTEM: Higher function as mentioned earlier. Moves all 4 limbs. No focal motor or sensory deficit. LYMPHATICS: No lymphadenopathy of the neck, axillae or groin. SKIN: No ulcer, rash or bleeding. JOINTS: No active deforming arthropathy. LABS: CBC within normal. Sodium 132 potassium 4.7. Creatine kinase 164. ASSESSMENT: 1. Chest pain possible unstable angina. 2. Possibly sinusitis with purulent tracheobronchitis. 3. Hyponatremia. 4. History of gastroesophageal reflux disease. 5. History of degenerative joint disease. 6. History of anxiety, depression. 7. History of continued ongoing nicotine dependence. 8. FULL CODE. RECOMMENDATIONS AND DISCUSSION: This 68-year-old woman who presented with multiple complex medical issues, we will monitor the patient closely. Rule out myocardial infarction. Cardiology evaluation. Unstable angina protocol. Also recommend empiric antibiotics for possible tracheobronchitis. Otherwise recommend close followup with Jessica Arroyo in the outpatient setting. The patient will also require a stress test to rule out the possibility of any coronary artery disease. Prognosis guarded because of multiple complex medical conditions: Further recommendations to follow. Recommend smoking cessation. A copy of dictation forwarded to Dr. Jessica Arroyo who is the primary physician. MMODL / IJN: [id number] /
[2019-01-10 08:13] VITALS: RESP 17
[2019-01-10] MEDS ORDERED: DOBUTamine DRIP for NUC MED 500 MG in DEXTROSE/WATER 1 250ML.BAG IV ONE (08:34)
[2019-01-10] MEDS ORDERED: ATORVASTATIN 10 MG TAB PO SCH (09:00)
[2019-01-10] MEDS ORDERED: ASPIRIN 81 MG PO SCH (09:00)
[2019-01-10] MEDS ORDERED: MULTIVITAMINS, THERA 1 EACH TAB PO SCH (09:00)
[2019-01-10] MEDS ORDERED: SERTRALINE 50 MG TAB PO SCH (09:00)
[2019-01-10] MEDS ORDERED: LORazepam 1 MG TAB PO SCH (09:00)
--- NOTE | 2019-01-10 11:31 | P.CRDCN ---
History of Present Illness History of present illness: This is a pleasant 68-year-old female past medical history significant for asthma, gastroesophageal reflux disease, dyslipidemia, chronic nicotine dependence on chronic anemia. We have been asked to see her in consultation secondary to chest discomfort. She follows in the office with Dr. Franklin. She states she did some heavy lifting at work on Sunday evening taking out some g arbage. The next day when she woke up she felt a burning in the midsternal region. There is no radiation to the back, arm, neck or jaw. There was no associated shortness of breath, dizziness, nausea, vomiting, diaphoresis or palpitations. She states she has been coughing and is a hacking-type cough however she is not bringing up any significant sputum. Her primary care physician did start her on Tessalon Perles on Sunday morning. Her chest discomfort is not associated with deep inspiration, cough or movement of her torso. There is no specific aggravating or alleviating factors. EKG reveals sinus mechanism with nonspecific ST abnormalities. Chest x-ray is negative for an acute cardiopulmonary process with evidence of bilateral apical scarring. Laboratory data reviewed, cardiac enzymes negative 3, CBC unremarkable, sodium 134, potassium 4.7, creatinine 0.68, magnesium 1.9, proBNP 169. Current cardiac medications include aspirin 81 mg daily and atorvastatin 10 mg daily. Most recent echocardiogram obtained March 2018 reveals preserved LV systolic function with ejection fraction 55-60%. Most recent stress test performed in 2017 was negative for stress-induced ischemia. At the time of my exam: CONSTITUTIONAL: Denies fever. Denies chills. EYES: Denies blurred vision. Denies vision changes. Denies eye pain. EARS, NOSE, MOUTH & THROAT: Denies headache. Denies sore throat. Denies ear pain. CARDIOVASCULAR: Denies chest pain. Denies shortness of breath. Denies orthopnea. Denies PND. Denies palpitations. RESPIRATORY: Denies cough. GASTROINTESTINAL: Denies abdominal pain. Denies diarrhea. Denies constipation. Denies nausea. Denies vomiting. MUSCULOSKELETAL: Denies myalgias. INTEGUMENTARY: Denies pruitis. Denies rash. NEUROLOGIC: Denies numbness. Denies tingling. Denies weakness. PSYCHIATRIC: Denies anxiety. Denies depression. ENDOCRINE: Denies fatigue. Denies weight change. Denies polydipsia. Denies polyurina. GENITOURINARY: Denies burning, hematuria or urgency with micturation. HEMATOLOGIC: Denies history of anemia. Denies bleeding. Blood pressure 153/73 heart rate 69 afebrile maintaining oxygen saturation on room air. GENERAL: This is a 68-year-old female in no apparent distress at the time of my examination. HEENT: Head is atraumatic, normocephalic. Pupils are equal, round. Sclerae anicteric. Conjunctivae are clear. Mucous membranes of the mouth are moist. Neck is supple. There is no jugular venous distention. No carotid bruit is heard. LUNGS: Clear to auscultation no wheezes, rales or rhonchi. No chest wall tenderness is noted on palpation or with deep breathing. HEART: Regular rate and rhythm without murmurs, rubs or gallops. S1 and S2 heard. ABDOMEN: Soft, nontender. Bowel sounds are heard. No organomegaly noted. EXTREMITIES: No evidence of peripheral edema and no calf tenderness noted. VASCULAR: Radial and dorsalis pedis pulses palpated, no evidence of clubbing. NEUROLOGIC: Patient is awake, alert and oriented x3. ASSESSMENT Chest pain, atypical. An acute coronary event has been ruled out Dyslipidemia Gastroesophageal reflux disease Chronic nicotine dependence PLAN An acute coronary event has been ruled out. Obtain 2-D echocardiogram and Doppler study to assess cardiac structure and function. Perform dobutamine stress echocardiogram to assess for stress-induced ischemia. Recommend antacid use for the possibility that this was related to gastroesophageal reflux disease. If stress test is normal she is stable from a cardiac perspective, follow-up with Dr. Franklin in the office in 2 weeks. Smoking cessation recommended. Thank you kindly for this consultation. Nurse Practitioner note has been reviewed, I agree with a documented findings and plan of care. Patient was seen and examined. Past Medical History Past Medical History: GERD/Reflux, Osteoarthritis (OA) Additional Past Medical History / Comment(s): anemia.diverticulosis, colon polyps-benign, anx/depression high cholesterol History of Any Multi-Drug Resistant Organisms: None Reported Past Surgical History: Joint Replacement, Orthopedic Surgery Additional Past Surgical History / Comment(s): C SECTION X2., ANTERIOR TOTAL LEFT HIP, r hip replacement ,colonoscopy/polypectomy Past Anesthesia/Blood Transfusion Reactions: No Reported Reaction Past Psychological History: Anxiety, Depression Additional Psychological History / Comment(s): LIVES ALONE IN A [place]. DENIES ANY FALLS.drives, no medical equipment used currently Smoking Status: Current every day smoker Past Alcohol Use History: None Reported Additional Past Alcohol Use History / Comment(s): STARTED SMOKING AT AGE 29 SMOKES 1/2 ppd Past Drug Use History: None Reported - Past Family History Father Additional Family Medical History / Comment(s): mental illness. in a fire at age 40 or 42 Mother Family Medical History: Congestive Heart Failure (CHF), Deep Vein Thrombosis (DVT) Medications and Allergies Home Medications Medication Instructions Recorded Confirmed Type LORazepam [Ativan] 1 mg PO DAILY 02/12/15 01/09/19 History Sertraline [Zoloft] 50 mg PO DAILY 02/12/15 01/09/19 History Multivitamins, Thera [Multivitamin 1 tab PO DAILY 07/28/16 01/09/19 History (formulary)] Aspirin EC [Ecotrin Low Dose] 81 mg PO DAILY 04/09/18 01/09/19 History Atorvastatin Calcium [Lipitor] 10 mg PO DAILY #30 tab 04/10/18 01/09/19 Rx Allergies Allergy/AdvReac Type Severity Reaction Status Date / Time No Known Allergies Allergy Verified 01/09/19 21:00 Physical Exam Vitals: Vital Signs Temp Pulse Pulse Resp BP BP Pulse Ox 01/10/19 08:00 98.5 F 69 17 153/73 97 01/10/19 04:50 98.0 F 65 16 156/75 98 01/10/19 00:00 97.6 F 56 L 18 142/71 98 01/09/19 21:55 154/69 01/09/19 19:58 97.9 F 59 L 16 177/75 98 01/09/19 19:15 97.6 F 60 18 149/78 96 01/09/19 18:57 68 18 149/89 97 01/09/19 15:31 97.9 F 79 16 122/71 99 Intake and Output 01/09/19 01/10/19 01/10/19 22:59 06:59 14:59 Intake Total 225 Balance 225 Intake: Intake, IV Titration 225 Amount Sodium Chloride 0.9% 1, 225 000 ml @ 75 mls/hr IV . [id number] [facility] Rx#:[id number] Other: Weight 56.699 kg Results 08/23/19 04:24 01/10/19 04:24 Cardiac Enzymes 01/09/19 01/09/19 01/09/19 Range/Units 16:05 16:05 21:28 AST 34 (14-36) U/L Troponin I <0.012 <0.012 (0.000-0.034) ng/mL 01/10/19 Range/Units 04:24 AST (14-36) U/L Troponin I <0.012 (0.000-0.034) ng/mL Coagulation 01/09/19 Range/Units 16:05 PT 10.7 (9.0-12.0) sec APTT 23.0 (22.0-30.0) sec CBC 01/09/19 01/10/19 Range/Units 16:05 04:24 WBC 6.3 7.6 (3.8-10.6) k/uL RBC 3.94 4.21 (3.80-5.40) m/uL Hgb 12.2 13.2 (11.4-16.0) gm/dL Hct 37.5 40.4 (34.0-46.0) % Plt Count 226 255 (150-450) k/uL Comprehensive Metabolic Panel 01/09/19 01/10/19 Range/Units 16:05 04:24 Sodium 132 L 134 L (137-145) mmol/L Potassium 4.7 4.7 (3.5-5.1) mmol/L Chloride 101 101 (98-107) mmol/L Carbon Dioxide 22 27 (22-30) mmol/L BUN 26 H 20 H (7-17) mg/dL Creatinine 0.84 0.68 (0.52-1.04) mg/dL Glucose 101 H 95 (74-99) mg/dL Calcium 9.4 9.3 (8.4-10.2) mg/dL AST 34 (14-36) U/L ALT 27 (9-52) U/L Alkaline Phosphatase 51 (38-126) U/L Total Protein 6.4 (6.3-8.2) g/dL Albumin 4.2 (3.5-5.0) g/dL Current Medications Generic Name Dose Route Start Last Admin Trade Name Freq PRN Reason Stop Dose Admin Aspirin 81 mg 01/10/19 09:00 Aspirin PO DAILY REGGIE Atorvastatin Calcium 10 mg 01/10/19 09:00 Lipitor PO DAILY REGGIE Ceftriaxone Sodium 1 gm/ 50 mls @ 100 mls/hr 01/10/19 06:00 01/10/19 05:58 Sodium Chloride IVPB 100 mls/hr Q24H REGGIE Administration Loratadine 10 mg 01/10/19 00:30 01/10/19 00:35 Claritin PO 10 mg DAILY REGGIE Administration Lorazepam 1 mg 01/10/19 09:00 Ativan PO DAILY REGGIE Multivitamins 1 each 01/10/19 09:00 Theragran PO DAILY REGGIE Naloxone HCl 0.2 mg 01/09/19 18:17 Narcan IV Q2M PRN Opioid Reversal Sertraline HCl 50 mg 01/10/19 09:00 Zoloft PO DAILY REGGIE Intake and Output 01/09/19 01/10/19 01/10/19 22:59 06:59 14:59 Intake Total 225 Balance 225 Intake: Intake, IV Titration 225 Amount Sodium Chloride 0.9% 1, 225 000 ml @ 75 mls/hr IV . [id number] [facility] Rx#:[id number] Other: Weight 56.699 kg 01/10/19 04:24 01/10/19 04:24
[2019-01-10 11:57] VITALS: BP 145/70; PULSE 82; TEMP 98.3
--- NOTE | 2019-01-10 12:00 | ECHOF ---
Referral Reason:cp MEASUREMENTS -------- HEIGHT: 165.1 cm WEIGHT: 56.7 kg BP: 153/73 RVIDd: 2.2 cm (< 3.3) IVSd: 1.0 cm (0.6 - 1.1) LVIDd: 3.5 cm (3.9 - 5.3) LVPWd: 1.3 cm (0.6 - 1.1) IVSs: 1.5 cm LVIDs: 2.4 cm LVPWs: 1.2 cm LA Diam: 2.2 cm (2.7 - 3.8) Ao Diam: 2.9 cm (2.0 - 3.7) AV Cusp: 1.6 cm (1.5 - 2.6) LA Diam: 3.3 cm (2.7 - 3.8) MV EXCURSION: 15.271 mm (> 18.000) MV EF SLOPE: 65 mm/s (70 - 150) EPSS: 0.6 cm MV E Jimmy: 0.80 m/s MV DecT: 197 ms MV A Jimmy: 0.73 m/s MV E/A Ratio: 1.10 RAP: 5.00 mmHg RVSP: 28.81 mmHg FINDINGS -------- Sinus rhythm. This was a technically good study. LV size, wall thickness and systolic function are normal, with an EF greater than 55%. The left dahiana tricular size is normal. The right ventricle is normal in size. The left atrial size is normal. The right atrial size is normal. Perimembraneous VSD Mild mitral regurgitation is present. Mild tricuspid regurgitation present. There is no evidence of pulmonary hypertension. The right v entricular systolic pressure, as measured by Doppler, is 28.81mmHg. Trace/mild (physiologic) pulmonic regurgitation. The aortic root size is normal. There is no pericardial effusion. CONCLUSIONS -------- 1. Sinus rhythm. 2. This was a technically good study. 3. LV size, wall thickness and systolic function are normal, with an EF greater than 55%. 4. The left ventricular size is normal. 5. The right ventricle is normal in size. 6. The left atrial size is normal. 7. The right atrial size is normal. 8. Possible perimembranous VSD 9. Mild mitral regurgitation is present. 10. Mild tricuspid regurgitation present. 11. There is no evidence of pulmonary hypertension. 12. The right ventricular systolic pressure, as measured by Doppler, is 28.81mmHg. 13. Trace/mild (physiologic) pulmonic regurgitation. 14. The aortic root size is normal. 15. There is no pericardial effusion. SEM MANAGER: Kandi Beebe RDCS
--- NOTE | 2019-01-10 13:18 | ECHOS ---
STRESS ECHOCARDIOGRAM DOBUTAMINE STRESS ECHO DATE OF SERVICE: 01/10/2019 INDICATIONS: Chest pain. MEDICATIONS: BASELINE HEART RATE: 60 BASELINE BLOOD PRESSURE: 130/67 MAXIMUM HEART RATE: 139 MAXIMUM BLOOD PRESSURE: 178/54 85% MPHR: 128 100% MPHR: 151 METS: MAXIMUM STAGE REACHED: TOTAL EXERCISE TIME: CLINICAL INFORMATION: Baseline EKG shows sinus rhythm, normal axis, normal intervals. Patient was given intravenous dobutamine over a period of 6-1/2 minutes as per protocol, achieving 92% of predicted maximal heart rate without chest pain or diagnostic ST-segment depression. Baseline echo shows normal left ventricular size, wall motion and systolic function. Post dobutamine infusion, there is normal hyperdynamic response of all segments of myocardium noted. MMODL / IJN: [id number] /
[2019-01-10] MEDS ORDERED: PANTOPRAZOLE 40 MG TABLET PO SCH (17:30)
--- NOTE | 2019-01-10 22:36 | DS ---
DISCHARGE SUMMARY DATE OF SERVICE: 01/10/2019 FINAL DIAGNOSES: 1. Chest pain with negative dobutamine stress echo, possibly gastroesophageal reflux disease. 2. Sinusitis with apparent tracheobronchitis. 3. Hyponatremia. 4. Gastroesophageal reflux disease. 5. History of degenerative joint disease. 6. History of anxiety, depression. 7. History of and continued ongoing nicotine dependence. 8. FULL CODE. DISCHARGE DISPOSITION: The patient will be discharged in stable condition with guarded prognosis. HISTORY OF PRESENT ILLNESS: This 68-year-old woman with a past medical history of multiple medical problems was admitted with chest pain. Patient also has a history of recent bronchitis and sinusitis. Myocardial infarction was ruled out. Patient underwent a stress test which was negative. Cardiology recommended the patient for discharge. The patient was also given a short course of IV antibiotics. Patient improved significantly. On exam, vitals are stable. CARDIOVASCULAR SYSTEM: S1, S2 muffled. ABDOMEN: Soft. NERVOUS SYSTEM: No focal deficit. DISCHARGE ADVICE AND MEDICATIONS: 1. Diet is cardiac. 2. Activity limited until followup. 3. Follow up with Dr. Jessica Arroyo in 1-2 days. 4. Follow up with Dr. Franklin as recommended. 5. Ativan 1 mg p.o. daily. 6. Ecotrin 81 mg p.o. daily. 7. Multivitamins 1 p.o. daily. 8. Zoloft 50 mg p.o. daily. 9. Claritin 10 mg p.o. daily. 10.Lipitor 10 mg p.o. daily. 11.Protonix 40 mg p.o. daily. Once again, the patient will be discharged in a stable condition with guarded prognosis. MMODL / IJN: [id number] /
== END 2019-01-10 12:55 | disposition home or self-care (01) ==
LOC: EC 15:29 → 1SOBS 18:18
PROVIDERS: ADMIT Hospitalist; ATTEND Hospitalist
DX: R07.89 Other chest pain (principal); K21.9 Gastro-esophageal reflux disease without esophagitis; M19.90 Unspecified osteoarthritis, unspecified site; D64.9 Anemia, unspecified; F32.9 Major depressive disorder, single episode, unspecified; E87.1 Hypo-osmolality and hyponatremia; F41.9 Anxiety disorder, unspecified; Z79.82 Long term (current) use of aspirin; E78.00 Pure hypercholesterolemia, unspecified; E78.5 Hyperlipidemia, unspecified; F17.200 Nicotine dependence, unspecified, uncomplicated; J45.909 Unspecified asthma, uncomplicated; Z79.899 Other long term (current) drug therapy; Z86.010 Personal history of colon polyps; Z96.641 Presence of right artificial hip joint; Z82.49 Family history of ischemic heart disease and other diseases of the circulatory system
CPT/HCPCS: 96361 ×2; 96374; 99285; 36415; 93005; 93306; 93351; 83880; 80053; 80048; 82550; 83690; 83735; 84484 ×2; 85025 ×2; 85610; 85730; 71046; G0378 ×2; J1250; J0696

== ENCOUNTER → 2019-07-01 | Outpatient (CLI) | payer OTHER, MEDICARE ==
--- NOTE | 2019-07-02 10:39 | MM ---
Reason for exam: screening (asymptomatic). Last mammogram was performed 1 year and 1 month ago. History: Patient is postmenopausal. Family history of breast cancer in maternal aunt. Benign excisional biopsy of the right breast, 1998. Physical Findings: A clinical breast exam by your physician is recommended on an annual basis and results should be correlated with mammographic findings. MG 3D Screening Mammo W/Cad Bilateral CC and MLO view(s) were taken. XCCL view(s) were taken of the right breast. Prior study comparison: May 31, 2018, bilateral MG 3d screening mammo w/cad. April 16, 2017, bilateral MG 3d screening mammo w/cad. The breast tissue is heterogeneously dense. This may lower the sensitivity of mammography. No suspicious abnormality. No significant changes when compared with prior studies. ASSESSMENT: Negative, BI-RAD 1 RECOMMENDATION: Routine screening mammogram of both breasts in 1 year.
== END | disposition home or self-care (01) ==
LOC: RADMAMWWP 10:04
PROVIDERS: ATTEND Family Medicine
DX: Z12.31 Encounter for screening mammogram for malignant neoplasm of breast (principal)
CPT/HCPCS: 77063; 77067

== ENCOUNTER 2019-10-24 06:19 | Observation (INO) | payer OTHER, MEDICARE ==
[2019-10-24] MEDS ORDERED: ASPIRIN 81 MG PO STA (06:44)
[2019-10-24] MEDS ORDERED: MORPHINE SULFATE 2 MG/ML SYRINGE IVP STA (06:44)
[2019-10-24] MEDS ORDERED: SODIUM CHLORIDE 0.9% 500 ML 500 ML IV STA (06:44)
--- NOTE | 2019-10-24 06:50 | ED ---
General Adult HPI - General Chief complaint: Chest Pain Stated complaint: Chest Pain Time Seen by Provider: 10/24/19 06:28 Source: patient, RN notes reviewed Mode of arrival: wheelchair Limitations: no limitations - History of Present Illness Initial comments: 69-year-old female with a past medical history of GERD anemia diverticulosis anxiety and depression, hypercholesterolemia presents to the emergency department for chest pain. Patient states she had chest pain starting in her back this morning. States it moved to her front of her chest. Patient states it was a sharp pain. Denies any alleviating or exacerbating factors. Denies any pain worsening with inspiration. Denies shortness of breath. Patient states she was diagnosed with pneumonia a few months ago and has had a slight cough since that time. States that over the past 2 weeks she has had a slightly worsening cough in the mornings and has productive sputum but that this resolves throughout the day. She denies fevers at home.Patient has no other complaints at this time including shortness of breath, abdominal pain, nausea or vomiting, headache, or visual changes. - Related Data Home Medications Medication Instructions Recorded Confirmed Sertraline [Zoloft] 50 mg PO DAILY 02/12/15 01/09/19 Multivitamins, Thera [Multivitamin 1 tab PO DAILY 07/28/16 01/09/19 (formulary)] Aspirin EC [Ecotrin Low Dose] 81 mg PO DAILY 04/09/18 01/09/19 Atenolol 25 mg PO DAILY 10/24/19 10/24/19 Previous Rx's Medication Instructions Recorded Atorvastatin Calcium [Lipitor] 10 mg PO DAILY #30 tab 04/10/18 Loratadine [Claritin] 10 mg PO DAILY tab 01/10/19 Pantoprazole [Protonix] 40 mg PO DAILY #30 tablet. 01/10/19 Allergies Allergy/AdvReac Type Severity Reaction Status Date / Time No Known Allergies Allergy Verified 10/24/19 10:08 Review of Systems ROS Statement: Those systems with pertinent positive or pertinent negative responses have been documented in the HPI. ROS Other: All systems not noted in ROS Statement are negative. Past Medical History Past Medical History: GERD/Reflux, Osteoarthritis (OA) Additional Past Medical History / Comment(s): anemia, diverticulosis, colon polyps-benign, anx/depression, high cholesterol History of Any Multi-Drug Resistant Organisms: None Reported Past Surgical History: Joint Replacement, Orthopedic Surgery Additional Past Surgical History / Comment(s): C SECTION X2., ANTERIOR TOTAL LEFT HIP, r hip replacement ,colonoscopy/polypectomy Past Anesthesia/Blood Transfusion Reactions: No Reported Reaction Past Psychological History: Anxiety, Depression Smoking Status: Former smoker Past Alcohol Use History: None Reported Past Drug Use History: None Reported - Past Family History Father Additional Family Medical History / Comment(s): mental illness. in a fire at age 41 or 42 Mother Family Medical History: Congestive Heart Failure (CHF), Deep Vein Thrombosis (DVT) General Exam Limitations: no limitations General appearance: alert, in no apparent distress Head exam: Present: atraumatic, normocephalic, normal inspection Eye exam: Present: normal appearance, PERRL, EOMI. Absent: scleral icterus, conjunctival injection, periorbital swelling ENT exam: Present: normal exam, mucous membranes moist Neck exam: Present: normal inspection, full ROM. Absent: tenderness, meningismus Respiratory exam: Present: normal lung sounds bilaterally. Absent: respiratory distress, wheezes, rales, rhonchi, stridor Cardiovascular Exam: Present: regular rate, normal rhythm, normal heart sounds. Absent: systolic murmur, diastolic murmur, rubs, gallop, clicks GI/Abdominal exam: Present: soft, normal bowel sounds. Absent: distended, tenderness (no tenderness), guarding, rebound, rigid Rectal exam: Present: other (no evidence of infection or skin breakdown on sacral area) External exam: Present: normal external exam. Absent: erythema, swelling, lesions, lacerations, ecchymosis, other (no evidence of infection) Back exam: Absent: CVA tenderness (R), CVA tenderness (L) Neurological exam: Present: alert Course Vital Signs 10/24/19 10/24/19 10/24/19 06:24 07:44 08:12 Temperature 99.8 F H 97.9 F 99.3 F Pulse Rate 94 73 Respiratory 18 18 Rate Blood Pressure 151/78 116/59 O2 Sat by Pulse 93 L 94 L Oximetry EKG Findings - EKG Comments: EKG Findings:: Normal sinus rhythm, ventricular rate 89, OR interval 194, QTc 462 Medical Decision Making - Medical Decision Making 6-year-old female presents to the emergency department for a command chest pain. Patient states this has improved since she came to the ER. Patient's did have a number dropped to 100.0 while in the emergency room. O2 saturation about 93% on room air. Patient does admit to slight cough over the past several weeks. Lungs are clear bilaterally. Laboratory investigation revealed leukocytosis of 22 with a left shift. There is evidence of lymphocytosis as well. Coronavirus pending. CMP unremarkable however magnesium 1.4, this was replaced. Troponin was negative and EKG showed a normal sinus rhythm. Chest x-ray revealed chronic emphysematous change with dimensions ration and new patchy left basilar acute atelectasis and/or infiltrate. At this point Rocephin and azithromycin was given. D-dimer was elevated and therefore CT chest angio was obtained which showed no CT evidence for acute pulmonary embolism. Mild to moderate underlying emphysematous changes. However given negative CT, Blood culture pending. Full physical exam did not reveal any skin, joint, or groin infection. Urinalysis negative. Patient will be admitted for further evaluation - Lab Data Result diagrams: 10/24/19 06:40 10/24/19 06:40 Lab Results 10/24/19 10/24/19 10/24/19 Range/Units 06:40 06:40 06:40 WBC 21.2 H (3.8-10.6) k/uL RBC 4.09 (3.80-5.40) m/uL Hgb 13.2 (11.4-16.0) gm/dL Hct 39.8 (34.0-46.0) % MCV 97.3 (80.0-100.0) fL MCH 32.2 (25.0-35.0) pg MCHC 33.0 (31.0-37.0) g/dL RDW 12.7 (11.5-15.5) % Plt Count 295 (150-450) k/uL Neutrophils % 96 % Lymphocytes % 1 % Monocytes % 2 % Eosinophils % 0 % Basophils % 0 % Neutrophils # 20.3 H (1.3-7.7) k/uL Lymphocytes # 0.3 L (1.0-4.8) k/uL Monocytes # 0.4 (0-1.0) k/uL Eosinophils # 0.1 (0-0.7) k/uL Basophils # 0.0 (0-0.2) k/uL PT 10.5 (9.0-12.0) sec INR 1.0 (<1.2) APTT 23.0 (22.0-30.0) sec D-Dimer 0.91 H (<0.60) mg/L FEU Sodium 137 (137-145) mmol/L Potassium 4.1 (3.5-5.1) mmol/L Chloride 103 (98-107) mmol/L Carbon Dioxide 24 (22-30) mmol/L Anion Gap 10 mmol/L BUN 22 H (7-17) mg/dL Creatinine 0.63 (0.52-1.04) mg/dL Est GFR (CKD-EPI)AfAm >90 (>60 ml/min/1.73 sqM) Est GFR (CKD-EPI)NonAf >90 (>60 ml/min/1.73 sqM) Glucose 128 H (74-99) mg/dL Plasma Lactic Acid Bruno (0.7-2.0) mmol/L Calcium 9.8 (8.4-10.2) mg/dL Magnesium 1.4 L (1.6-2.3) mg/dL Total Bilirubin 0.6 (0.2-1.3) mg/dL AST 25 (14-36) U/L ALT 16 (4-34) U/L Alkaline Phosphatase 67 (38-126) U/L Troponin I (0.000-0.034) ng/mL Total Protein 6.9 (6.3-8.2) g/dL Albumin 4.4 (3.5-5.0) g/dL Urine Color Urine Appearance (Clear) Urine pH (5.0-8.0) Ur Specific [place] (1.001-1.035) Urine Protein (Negative) Urine Glucose (UA) (Negative) Urine Ketones (Negative) Urine Blood (Negative) Urine Nitrite (Negative) Urine Bilirubin (Negative) Urine Urobilinogen (<2.0) mg/dL Ur Leukocyte Esterase (Negative) Urine RBC (0-5) /hpf Urine WBC (0-5) /hpf Ur Squamous Epith Cells (0-4) /hpf Urine Mucus (None) /hpf 10/24/19 10/24/19 10/24/19 Range/Units 06:40 07:45 08:05 WBC (3.8-10.6) k/uL RBC (3.80-5.40) m/uL Hgb (11.4-16.0) gm/dL Hct (34.0-46.0) % MCV (80.0-100.0) fL MCH (25.0-35.0) pg MCHC (31.0-37.0) g/dL RDW (11.5-15.5) % Plt Count (150-450) k/uL Neutrophils % % Lymphocytes % % Monocytes % % Eosinophils % % Basophils % % Neutrophils # (1.3-7.7) k/uL Lymphocytes # (1.0-4.8) k/uL Monocytes # (0-1.0) k/uL Eosinophils # (0-0.7) k/uL Basophils # (0-0.2) k/uL PT (9.0-12.0) sec INR (<1.2) APTT (22.0-30.0) sec D-Dimer (<0.60) mg/L FEU Sodium (137-145) mmol/L Potassium (3.5-5.1) mmol/L Chloride (98-107) mmol/L Carbon Dioxide (22-30) mmol/L Anion Gap mmol/L BUN (7-17) mg/dL Creatinine (0.52-1.04) mg/dL Est GFR (CKD-EPI)AfAm (>60 ml/min/1.73 sqM) Est GFR (CKD-EPI)NonAf (>60 ml/min/1.73 sqM) Glucose (74-99) mg/dL Plasma Lactic Acid Bruno 1.6 (0.7-2.0) mmol/L Calcium (8.4-10.2) mg/dL Magnesium (1.6-2.3) mg/dL Total Bilirubin (0.2-1.3) mg/dL AST (14-36) U/L ALT (4-34) U/L Alkaline Phosphatase (38-126) U/L Troponin I <0.012 (0.000-0.034) ng/mL Total Protein (6.3-8.2) g/dL Albumin (3.5-5.0) g/dL Urine Color Yellow Urine Appearance Clear (Clear) Urine pH 5.5 (5.0-8.0) Ur Specific [place] 1.017 (1.001-1.035) Urine Protein Negative (Negative) Urine Glucose (UA) Negative (Negative) Urine Ketones Negative (Negative) Urine Blood Small H (Negative) Urine Nitrite Negative (Negative) Urine Bilirubin Negative (Negative) Urine Urobilinogen <2.0 (<2.0) mg/dL Ur Leukocyte Esterase Small H (Negative) Urine RBC 6 H (0-5) /hpf Urine WBC 4 (0-5) /hpf Ur Squamous Epith Cells <1 (0-4) /hpf Urine Mucus Few H (None) /hpf Disposition Clinical Impression: Pneumonia, Leukocytosis, Chest pain, Hypomagnesemia, Cough Disposition: ADMITTED IP TO THIS HOSP Condition: Fair Is patient prescribed a controlled substance at d/c from ED?: No Referrals: Nonstaff,Physician [Primary Care Provider] - 1-2 days Time of Disposition: 09:56
[2019-10-24 06:59] LABS: Basophils % (A) 0 %; Eosinophils # (A) 0.1 k/uL (0-0.7); Eosinophils % (A) 0 %; HCT 39.8 % (34.0-46.0); HGB 13.2 gm/dL (11.4-16.0); Lymphocytes # (A) 0.3 k/uL (1.0-4.8); Lymphocytes % (A) 1 %; MCH 32.2 pg (25.0-35.0); MCV 97.3 fL (80.0-100.0); Mean Platelet Volume 7.9; Monocytes # (A) 0.4 k/uL (0-1.0); Monocytes % (A) 2 %; Neutrophils # (A) 20.3 k/uL (1.3-7.7); Neutrophils % (A) 96 %; Platelet Count 295 k/uL (150-450); RBC 4.09 m/uL (3.80-5.40); RDW 12.7 % (11.5-15.5); WBC 21.2 k/uL (3.8-10.6)
--- NOTE | 2019-10-24 07:07 | XR ---
EXAMINATION TYPE: XR chest 1V portable DATE OF EXAM: 10/24/2019 COMPARISON: Chest x-ray January 09, 2019. Lung CT May 31, 2018. HISTORY: Shortness of breath. TECHNIQUE: Single frontal view of the chest is obtained. FINDINGS: There is background chronic emphysematous change with diminished inspiration and new patch y left basilar opacity. No pleural effusion or pneumothorax seen bilaterally. Right lung remains zeferino ar. The cardiac silhouette size remains within normal limits with atherosclerotic aorta. The osseou s structures show degenerative change bilateral glenohumeral joints. IMPRESSION: Background chronic emphysematous change with diminished inspiration and new patchy left b asilar acute atelectasis and/or infiltrate.
[2019-10-24 07:09] LABS: ALT 16 U/L (4-34); AST 25 U/L (14-36); African American GFR (CKD) >90 (>60 ml/min/1.73 sqM); Albumin 4.4 g/dL (3.5-5.0); Alkaline Phosphatase 67 U/L (38-126); Anion Gap 10 mmol/L; Blood Urea Nitrogen 22 mg/dL (7-17); Calcium 9.8 mg/dL (8.4-10.2); Carbon Dioxide 24 mmol/L (22-30); Chloride 103 mmol/L (98-107); Glucose 128 mg/dL (74-99); Magnesium 1.4 mg/dL (1.6-2.3); Non-African American GFR(CKD) >90 (>60 ml/min/1.73 sqM); Potassium 4.1 mmol/L (3.5-5.1); Sodium 137 mmol/L (137-145); Total Bilirubin 0.6 mg/dL (0.2-1.3); Total Protein 6.9 g/dL (6.3-8.2)
[2019-10-24 07:13] LABS: Prothrombin Time 10.5 sec (9.0-12.0)
[2019-10-24] MEDS ORDERED: cefTRIAXone IN SWFI 1,000 MG/10 ML SYRINGE IVP STA (07:25)
[2019-10-24] MEDS ORDERED: MAGNESIUM SULFATE-D5W PMX 1 GM in DEXTROSE/WATER 1 100ML.BAG IVPB STA (07:25)
[2019-10-24] MEDS ORDERED: AZITHROMYCIN 500 MG in SODIUM CHLORIDE 0.9% 250 ML IVPB STA (07:25)
[2019-10-24 08:23] LABS: D-Dimer 0.91 mg/L FEU (<0.60)
[2019-10-24 08:28] LABS: Appearance,Urine Clear (Clear); Bilirubin,Urine Negative (Negative); Blood,Urine Small (Negative); Color,Urine Yellow; Glucose,Urine (UA) Negative (Negative); Ketones,Urine Negative (Negative); Leukocyte Esterase,Urine Small (Negative); Mucus,Urine Few /hpf; Nitrite,Urine Negative (Negative); PH, Urine 5.5 (5.0-8.0); Protein,Urine Negative (Negative); RBC,Urine 6 /hpf (0-5); Specific Gravity,Urine 1.017 (1.001-1.035); Squamous Epithelial Cell,Urine <1 /hpf (0-4); Urobilinogen,Urine <2.0 mg/dL (<2.0); WBC,Urine 4 /hpf (0-5)
--- NOTE | 2019-10-24 09:48 | CT ---
EXAMINATION TYPE: CT chest angio for PE DATE OF EXAM: 10/24/2019 COMPARISON: CT chest May 08, 2017 HISTORY: chest pain, history of PE CT DLP: 248.1 mGycm. Automated Exposure Control for Dose Reduction was Utilized. CONTRAST: CTA scan of the thorax is performed with IV Contrast, patient injected with 71 mL of Isovue 370, pulm onary embolism protocol. MIP Images are created on CT scanner and reviewed. FINDINGS: Exam noted suboptimal as patient unable to hold breath causing motion artifact degradation limiting evaluation particularly for subcentimeter nodules this is most prominent in the lower lungs on this study LUNGS: Mild to moderate underlying emphysematous change is redemonstrated with mild to moderate pleur al/parenchymal apical scarring. Dependent atelectasis bilateral lower lungs with mild to moderate bouchra ear scarring and/or atelectasis just above the diaphragms. No pleural effusion or pneumothorax. No banks spicious new focal consolidation. MEDIASTINUM: There is satisfactory enhancement of the pulmonary artery and its branches, there is no CT evidence for pulmonary embolism. There are no new greater than 1 cm hilar or mediastinal lymph no wero. No cardiomegaly or pericardial effusion is seen. Coronary artery calcification redemonstrated. OTHER: Scoliotic curvature with fairly moderate multilevel spurring again seen. IMPRESSION: No CT evidence for acute pulmonary embolism. Mild to moderate underlying emphysematous ch anges without suspicious acute pulmonary process.
[2019-10-24] MEDS ORDERED: PNEUMONIA PROTOCOL UTILIZED 1 EACH MISC PO PRN (10:05)
[2019-10-24] MEDS: SODIUM CHLORIDE 0.9% 1,000 ML IV SCH ×2 (12:34→23:43)
[2019-10-24] MEDS ORDERED: MAGNESIUM SULFATE-D5W PMX 1 GM in DEXTROSE/WATER 1 100ML.BAG IVPB ONE (13:39)
--- NOTE | 2019-10-24 14:53 | P.HPIM ---
History of Present Illness Patient is a pleasant 69-year-old female came in to the emergency department with the complaints of bilateral shoulder pain and back pain. The patient also had low-grade fever has cough for for a month. Patient denied any shortness of breath patient denied any sputum production. Patient had a temperature here is 99.0 patient had a chest x-ray which showed atelectasis as of which patient is admitted for possible pneumonia although patient had a CAT scan of the chest as well and did review the CAT scan there is no air bronchogram with infiltrate and I do not believe patient has pneumonia. Patient denied any abdominal pain p atient has gastric esophageal reflux disease she does have some epigastric abdominal burning sensation and gastritis like symptoms. Patient had a normal EKG and normal troponin. Patient denied any UTI-like symptoms urine is benign without any infection. Review of Systems REVIEW OF SYSTEMS: CONSTITUTIONAL: As mentioned in HPI HEENT: No recent visual problems or hearing problems. Denied any sore throat. CARDIOVASCULAR: No orthopnea, PND, no palpitations, no syncope. PULMONARY: No shortness of breath, no cough, no hemoptysis. GASTROINTESTINAL: No diarrhea, no nausea, no vomiting, no abdominal pain. NEUROLOGICAL: No headaches, no weakness, no numbness. HEMATOLOGICAL: Denies any bleeding or petechiae. GENITOURINARY: Denies any burning micturition, frequency, or urgency. MUSCULOSKELETAL/RHEUMATOLOGICAL: Denies any joint pain, swelling, or any muscle pain. ENDOCRINE: Denies any polyuria or polydipsia. The rest of the 14-point review of systems is negative. Past Medical History Past Medical History: GERD/Reflux, Osteoarthritis (OA) Additional Past Medical History / Comment(s): anemia, diverticulosis, colon polyps-benign, anx/depression, high cholesterol History of Any Multi-Drug Resistant Organisms: None Reported Past Surgical History: Joint Replacement, Orthopedic Surgery Additional Past Surgical History / Comment(s): C SECTION X2., ANTERIOR TOTAL LEFT HIP, r hip replacement ,colonoscopy/polypectomy Past Anesthesia/Blood Transfusion Reactions: No Reported Reaction Past Psychological History: Anxiety, Depression Additional Psychological History / Comment(s): LIVES ALONE IN A [place]. DENIES ANY FALLS.drives, no medical equipment used currently Smoking Status: Former smoker Past Alcohol Use History: None Reported Additional Past Alcohol Use History / Comment(s): STARTED SMOKING AT AGE 29 SMOKES 1/2 ppd Past Drug Use History: None Reported - Past Family History Father Additional Family Medical History / Comment(s): mental illness. in a fire at age 41 or 42 Mother Family Medical History: Congestive Heart Failure (CHF), Deep Vein Thrombosis (DVT) Medications and Allergies Home Medications Medication Instructions Recorded Confirmed Type Sertraline [Zoloft] 50 mg PO DAILY 02/12/15 10/24/19 History Multivitamins, Thera [Multivitamin 1 tab PO DAILY 07/28/16 10/24/19 History (formulary)] Aspirin EC [Ecotrin Low Dose] 81 mg PO DAILY 04/09/18 10/24/19 History Atorvastatin Calcium [Lipitor] 10 mg PO DAILY #30 tab 04/10/18 10/24/19 Rx Loratadine [Claritin] 10 mg PO DAILY tab 01/10/19 10/24/19 Rx Pantoprazole [Protonix] 40 mg PO DAILY #30 tablet. 01/10/19 10/24/19 Rx Atenolol 25 mg PO DAILY 10/24/19 10/24/19 History Allergies Allergy/AdvReac Type Severity Reaction Status Date / Time No Known Allergies Allergy Verified 10/24/19 10:08 Physical Exam Vitals: Vital Signs Temp Pulse Pulse Resp BP BP Pulse Ox 10/24/19 13:04 98.9 F 74 16 118/67 92 L 10/24/19 12:30 72 19 123/68 95 10/24/19 12:00 76 19 123/68 95 10/24/19 11:30 77 19 133/71 95 10/24/19 11:00 79 19 139/72 95 10/24/19 10:30 75 20 125/60 92 L 10/24/19 10:00 83 20 121/60 92 L 10/24/19 09:30 80 20 102/57 93 L 10/24/19 09:00 81 20 115/60 92 L 10/24/19 08:30 85 20 123/61 92 L 10/24/19 08:12 99.3 F 10/24/19 08:00 81 20 119/63 91 L 10/24/19 07:44 97.9 F 73 18 116/59 94 L 10/24/19 07:30 77 20 116/59 91 L 10/24/19 06:24 99.8 F H 94 18 151/78 93 L Intake and Output 10/23/19 10/24/19 10/24/19 22:59 06:59 14:59 Other: Voiding Method Toilet # Voids 1 Weight 61.235 kg 61.235 kg PHYSICAL EXAMINATION: GENERAL: The patient is alert and oriented x3, not in any acute distress. Well developed, well nourished. HEENT: Pupils are round and equally reacting to light. EOMI. No scleral icterus. No conjunctival pallor. Normocephalic, atraumatic. No pharyngeal erythema. No thyromegaly. CARDIOVASCULAR: S1 and S2 present. No murmurs, rubs, or gallops. PULMONARY: Chest is clear to auscultation, no wheezing or crackles. ABDOMEN: Soft, nontender, nondistended, normoactive bowel sounds. No palpable organomegaly. MUSCULOSKELETAL: No joint swelling or deformity. EXTREMITIES: No cyanosis, clubbing, or pedal edema. NEUROLOGICAL: Gross neurological examination did not reveal any focal deficits. SKIN: No rashes. Note: Because of COVID 19 isolation, some of the history and physical exam findings or indirect and obtained from nursing staff, and other physician examinations to avoid unnecessary contact with the patient. Results CBC & Chem 7: 10/24/19 06:40 10/24/19 06:40 Labs: Abnormal Lab Results - Last 24 Hours (Table) 10/24/19 10/24/19 10/24/19 Range/Units 06:40 06:40 06:40 WBC 21.2 H (3.8-10.6) k/uL Neutrophils # 20.3 H (1.3-7.7) k/uL Lymphocytes # 0.3 L (1.0-4.8) k/uL D-Dimer 0.91 H (<0.60) mg/L FEU BUN 22 H (7-17) mg/dL Glucose 128 H (74-99) mg/dL Magnesium 1.4 L (1.6-2.3) mg/dL C-Reactive Protein (<10.0) mg/L Urine Blood (Negative) Ur Leukocyte Esterase (Negative) Urine RBC (0-5) /hpf Urine Mucus (None) /hpf 10/24/19 10/24/19 Range/Units 06:40 08:05 WBC (3.8-10.6) k/uL Neutrophils # (1.3-7.7) k/uL Lymphocytes # (1.0-4.8) k/uL D-Dimer (<0.60) mg/L FEU BUN (7-17) mg/dL Glucose (74-99) mg/dL Magnesium (1.6-2.3) mg/dL C-Reactive Protein 14.9 H (<10.0) mg/L Urine Blood Small H (Negative) Ur Leukocyte Esterase Small H (Negative) Urine RBC 6 H (0-5) /hpf Urine Mucus Few H (None) /hpf Thrombosis Risk Factor Assmnt - Choose All That Apply Each Risk Factor Represents 2 Points: Age 61-74 years Thrombosis Risk Factor Assessment Total Risk Factor Score: 2 Thrombosis Risk Factor Assessment Level: Low Risk Assessment and Plan Plan: -Fever and leukocytosis source of infection is not there was suspicion is low that pneumonia is the reason for her systemic inflammatory response. I'll I'll continue IV antibiotics for now because of the shoulder blade pain I'll order a right upper quadrant ultrasound to rule out cholecystitis which is presently soft without any evidence of cholecystitis clinically him a we'll rule out COVID 19 Gases visual reflux disease -Atypical chest pain it's mostly shoulder pain and epigastric abdominal pain will repeat 2 more sets of troponins will also obtain echocardiogram -Depression 10 hyperlipidemia -Hypertension for above-mentioned medical problems patient will be resumed on appropriate home medications DVT prophylaxis early ambulation
[2019-10-25] MEDS ORDERED: PANTOPRAZOLE 40 MG TABLET PO SCH (07:30)
--- NOTE | 2019-10-25 08:42 | US ---
EXAMINATION TYPE: US gallbladder DATE OF EXAM: 10/25/2019 COMPARISON: NONE CLINICAL HISTORY: ABD Pain. Pain EXAM MEASUREMENTS: Liver Length: 16.2 cm Gallbladder Wall: .3 cm CBD: .6 cm Right Kidney: 9.8 x 4.3 x 4.2 cm Pancreas: wnl Liver: wnl Gallbladder: wnl Evidence for sonographic Collins's sign: No CBD: wnl Right Kidney: wnl The pancreas is unremarkable. The liver is normal in size without biliary dilatation. The gallbladder is unremarkable. The gallbladder wall measures 3 mm. This common hepatic duct measure s 6 mm. There is no sonographic Collins's sign. The right kidney is unremarkable. IMPRESSION: Normal right upper quadrant ultrasound.
[2019-10-25] MEDS ORDERED: AZITHROMYCIN 500 MG in SODIUM CHLORIDE 0.9% 250 ML IVPB SCH (09:00)
[2019-10-25] MEDS ORDERED: ATORVASTATIN 10 MG TAB PO SCH (09:00)
[2019-10-25] MEDS ORDERED: MULTIVITAMINS, THERA 1 EACH TAB PO SCH (09:00)
[2019-10-25] MEDS ORDERED: SERTRALINE 50 MG TAB PO SCH (09:00)
[2019-10-25] MEDS ORDERED: LORATADINE 10 MG TAB PO SCH (09:00)
[2019-10-25] MEDS ORDERED: ASPIRIN 81 MG PO SCH (09:00)
[2019-10-25] MEDS ORDERED: ATENOLOL 25 MG TAB PO SCH (09:00)
[2019-10-25 09:15] LABS: HCT 34.7 % (34.0-46.0); HGB 10.8 gm/dL (11.4-16.0); MCH 30.5 pg (25.0-35.0); MCHC 31.2 g/dL (31.0-37.0); MCV 97.6 fL (80.0-100.0); Mean Platelet Volume 8.7; Platelet Count 234 k/uL (150-450); RBC 3.56 m/uL (3.80-5.40); WBC 14.2 k/uL (3.8-10.6)
[2019-10-25] MEDS: SODIUM CHLORIDE 0.9% 1,000 ML IV SCH ×2 (09:24→17:31)
[2019-10-25 09:42] LABS: African American GFR (CKD) >90 (>60 ml/min/1.73 sqM); Anion Gap 7 mmol/L; Blood Urea Nitrogen 13 mg/dL (7-17); Calcium 8.7 mg/dL (8.4-10.2); Carbon Dioxide 23 mmol/L (22-30); Chloride 107 mmol/L (98-107); Glucose 95 mg/dL (74-99); Non-African American GFR(CKD) >90 (>60 ml/min/1.73 sqM); Potassium 4.1 mmol/L (3.5-5.1); Sodium 137 mmol/L (137-145)
--- NOTE | 2019-10-25 09:55 | XR ---
EXAMINATION TYPE: XR chest 1V portable DATE OF EXAM: 10/25/2019 HISTORY: eval pneumonia. REFERENCE: Previous study dated 10/24/2019. FINDINGS: Lung volumes are prominent. There continues to be some minimal atelectasis or infiltrate at the left lung base. Right lung is clear. Pleural spaces appear clear. Heart size upper limits of nor mal. IMPRESSION: NO SIGNIFICANT INTERVAL CHANGE IN THE APPEARANCE OF THE CHEST.
[2019-10-25 14:26] VITALS: BP 127/67; PULSE 66; RESP 15; TEMP 98.2
--- NOTE | 2019-10-25 16:00 | ECHOF ---
Referral Reason:chest pain MEASUREMENTS -------- HEIGHT: 165.1 cm WEIGHT: 61.2 kg BP: 124/61 IVSd: 1.3 cm (0.6 - 1.1) LVIDd: 3.6 cm (3.9 - 5.3) LVPWd: 1.3 cm (0.6 - 1.1) IVSs: 1.7 cm LVIDs: 2.5 cm LVPWs: 1.7 cm LA Diam: 3.2 cm (2.7 - 3.8) RVIDd: 2.9 cm (< 3.3) Ao Diam: 2.9 cm (2.0 - 3.7) AV Cusp: 1.8 cm (1.5 - 2.6) EPSS: 0.7 cm MV E Jimmy: 1.21 m/s MV DecT: 209 ms MV A Jimmy: 0.98 m/s MV E/A Ratio: 1.24 RAP: 5.00 mmHg RVSP: 32.40 mmHg MV EF SLOPE: 107.20 mm/s (70 - 150) MV EXCURSION: 22.17 mm (> 18.000) FINDINGS -------- Sinus rhythm. This was a technically good study. The left ventricular size is normal. There is mild concentric left ventricular hypertrophy. Overa ll left ventricular systolic function is normal with, an EF between 60 - 65 %. The right ventricle is normal in size. The left atrial size is normal. The right atrium is normal in size. Interatrial and interventricular septum intact. The aortic valve is trileaflet and appears structurally normal. The mitral valve is normal. The mitral valve leaflets are mildly thickened. Mild tricuspid regurgitation present. Right ventricular systolic pressure is normal at < 35 mmHg. Trace/mild (physiologic) pulmonic regurgitation. The aortic root size is normal. Normal inferior vena cava with normal inspiratory collapse consistent with estimated right atrial pre ssure of 5 mmHg. The inferior vena cava is mildly dilated. There is no pericardial effusion. CONCLUSIONS -------- 1. Sinus rhythm. 2. This was a technically good study. 3. The left ventricular size is normal. 4. There is mild concentric left ventricular hypertrophy. 5. Overall left ventricular systolic function is normal with, an EF between 60 - 65 %. 6. The right ventricle is normal in size. 7. The left atrial size is normal. 8. The right atrium is normal in size. 9. Interatrial and interventricular septum intact. 10. The aortic valve is trileaflet and appears structurally normal. 11. The mitral valve is normal. 12. The mitral valve leaflets are mildly thickened. 13. Mild tricuspid regurgitation present. 14. Right ventricular systolic pressure is normal at < 35 mmHg. 15. Trace/mild (physiologic) pulmonic regurgitation. 16. The aortic root size is normal. 17. Normal inferior vena cava with normal inspiratory collapse consistent with estimated right atrial pressure of 5 mmHg. 18. The inferior vena cava is mildly dilated. 19. There is no pericardial effusion. SCOOP FILLER: Corrine Hinds RDCS
--- NOTE | 2019-10-25 16:21 | P.DS ---
Providers Date of admission: 10/24/19 10:09 Attending physician: Maurizio Burton Primary care physician: Physician Nonstaff Hospital Course: 69-year-old female came in to the emergency department with the complaints of bilateral shoulder pain and back pain. The patient also had low-grade fever has cough for for a month. Patient denied any shortness of breath patient denied any sputum production. Patient had a temperature here is 99.0 patient had a chest x-ray which showed atelectasis as of which patient is admitted for possible pneumonia although patient had a CAT scan of the chest as well and did review the CAT scan there is no air bronchogram with infiltrate and I do not believe patient has pneumonia. Patient denied any abdominal pain patient has gastric esophageal reflux disease she does have some epigastric abdominal burning sensation and gastritis like symptoms. Patient had a normal EKG and normal troponin. Patient denied any UTI-like symptoms urine is benign without any infection. 10/25/2019 Patient is clinically doing well her basic back pain resolved all the testing was negative, echocardiogram showed a mild constant left ventricular hypertrophy, will order a BNP but there is no evidence of heart failure exacerbation at this time there are no wall motion abnormality is ruled out acute current syndromes. Repeat chest x-ray is not showing any interval changes CAT scan is not evident for pneumonia but had leukocytosis improved with Rocephin and azithromycin patient will be discharged on 5 more days of Ceftin and azithromycin because of that reason although I'm not completely convinced patient has pneumonia at this time. But I do not have any good expansion for her low-grade fever and leukocytosis. Leukocytosis improved from 22,000 14,000. Gallbladder ultrasound was obtained because of her bilateral shoulder blade p ain which presently resolved which did not show any cholecystitis. Patient may benefit from outpatient stress study presently doesn't have any pain feeling well. Although I cannot completely rule out atypical pneumonia:COVID 19 was ruled out PHYSICAL EXAMINATION: GENERAL: The patient is alert and oriented x3, not in any acute distress. Well developed, well nourished. HEENT: Pupils are round and equally reacting to light. EOMI. No scleral icterus. No conjunctival pallor. Normocephalic, atraumatic. No pharyngeal erythema. No thyromegaly. CARDIOVASCULAR: S1 and S2 present. No murmurs, rubs, or gallops. PULMONARY: Chest is clear to auscultation, no wheezing or crackles. ABDOMEN: Soft, nontender, nondistended, normoactive bowel sounds. No palpable organomegaly. MUSCULOSKELETAL: No joint swelling or deformity. EXTREMITIES: No cyanosis, clubbing, or pedal edema. NEUROLOGICAL: Gross neurological examination did not reveal any focal deficits. SKIN: No rashes. Assessment and Plan Plan: -Fever and leukocytosis source of infection is not clear probably atypical pneumonia Gases he esophageal reflux disease -Atypical chest pain echocardiogram and further workup as mentioned above -Depression 10 hyperlipidemia -Hypertension for above-mentioned medical problems patient will be resumed on appropriate home medications Patient Condition at Discharge: Fair Plan - Discharge Summary Discharge Rx Participant: No New Discharge Prescriptions: New Cefuroxime Axetil [Ceftin] 500 mg PO BID 5 Days #10 tab Azithromycin [Zithromax] 500 mg PO DAILY #5 tab Continue Sertraline [Zoloft] 50 mg PO DAILY Multivitamins, Thera [Multivitamin (formulary)] 1 tab PO DAILY Aspirin EC [Ecotrin Low Dose] 81 mg PO DAILY Atorvastatin Calcium [Lipitor] 10 mg PO DAILY #30 tab Loratadine [Claritin] 10 mg PO DAILY tab Pantoprazole [Protonix] 40 mg PO DAILY #30 tablet. Atenolol 25 mg PO DAILY Discharge Medication List Sertraline [Zoloft] 50 mg PO DAILY 02/12/15 [History] Multivitamins, Thera [Multivitamin (formulary)] 1 tab PO DAILY 07/28/16 [History] Aspirin EC [Ecotrin Low Dose] 81 mg PO DAILY 04/09/18 [History] Atorvastatin Calcium [Lipitor] 10 mg PO DAILY #30 tab 04/10/18 [Rx] Loratadine [Claritin] 10 mg PO DAILY tab 01/10/19 [Rx] Pantoprazole [Protonix] 40 mg PO DAILY #30 tablet. 01/10/19 [Rx] Atenolol 25 mg PO DAILY 10/24/19 [History] Azithromycin [Zithromax] 500 mg PO DAILY #5 tab 10/25/19 [Rx] Cefuroxime Axetil [Ceftin] 500 mg PO BID 5 Days #10 tab 10/25/19 [Rx] Follow up Appointment(s)/Referral(s): Mari Lyn III, MD [STAFF PHYSICIAN] - 1 Week
[2019-10-27] MEDS ORDERED: AZITHROMYCIN 500 MG TAB PO SCH (09:00)
== END 2019-10-25 17:44 | disposition home or self-care (01) ==
LOC: EC 06:19 → 4SSUR 10:09 → INTOOBSV 10:09 → 4SSUR 11:08 → UNDODISIN 10-25 17:44
PROVIDERS: ADMIT Internal Medicine; ATTEND Internal Medicine
DX: J18.9 Pneumonia, unspecified organism (principal); E83.42 Hypomagnesemia; K21.9 Gastro-esophageal reflux disease without esophagitis; R07.89 Other chest pain; E78.00 Pure hypercholesterolemia, unspecified; I10 Essential (primary) hypertension; D72.820 Lymphocytosis (symptomatic); Z03.818 Encounter for observation for suspected exposure to other biological agents ruled out; K57.90 Diverticulosis of intestine, part unspecified, without perforation or abscess without bleeding; F41.9 Anxiety disorder, unspecified; F32.9 Major depressive disorder, single episode, unspecified; M19.90 Unspecified osteoarthritis, unspecified site; Z86.010 Personal history of colon polyps; Z96.642 Presence of left artificial hip joint; Z98.890 Other specified postprocedural states; Z87.891 Personal history of nicotine dependence; Z81.8 Family history of other mental and behavioral disorders; Z82.49 Family history of ischemic heart disease and other diseases of the circulatory system; Z79.82 Long term (current) use of aspirin; Z79.899 Other long term (current) drug therapy
CPT/HCPCS: 96366; 96367 ×2; 96376; 96361; 96365; 96375; 99285; 36415; 93005; 93306; 85379; 83880; 80053; 80048; 83605; 83615; 83735; 84484; 85025; 85027; 85610; 85730; 86140; 81001; 87040; 84145; 71045 ×2; 76705; 71275; G0378 ×2; U0003; J0456 ×2; J0696 ×2; J2270; J3475; Q9967; 96368

== ENCOUNTER → 2020-09-06 | Outpatient (CLI) | payer OTHER, MEDICARE ==
--- NOTE | 2020-09-07 17:52 | BD ---
EXAMINATION TYPE: Axial Bone Density DATE OF EXAM: 09/06/2020 COMPARISON: NONE CLINICAL HISTORY: Postmenopausal screening Height: 63 IN Weight: 132 LBS RISK FACTORS HISTORY OF: Surgery to Hip(FREDY): 2012 AND 2016 Family History of Osteoporosis: YES GRANDMOTHER(P) AND SISTER Active: YES Postmenopausal woman: AGE 49 TOTAL HYST MEDICATIONS: Additional Medications: VIT D, SERTRALINE, CETRIZINE, ATORVASTATIN, PANTOPRAZOLE, ASPIRIN, [place] T SODIUM, ATENOLOL, INHALER EXAM MEASUREMENTS: Bone mineral densitometry was performed using the Postling System. Bone mineral density as measured about the Lumbar spine is: ----- L1-L4(G/cm2): 1.467 T Score Values are as follows: ----- L2: 1.3 ----- L3: 2.9 ----- L4: 4.3 ----- L1-L4: 2.4 Bone mineral density BASELINE PT HAD BILATERAL HIP REPLACEMENTS Bone mineral density about the L Wrist (g/cm2): 0.486 T Score values are as follows: -----Dist. R+U: -2.4 -----Prox. R+U: -2.6 -----Radius total: -3.1 Bone mineral density BASELINE IMPRESSION: Osteoporosis (T Score less than -2.5). There is increased fracture risk and therapy is usually indicated based on age. Re-Screen 1-2 years. NOTE: T-SCORE=SD OF THE YOUNG ADULT MEAN.
--- NOTE | 2020-09-08 09:19 | MM ---
Reason for exam: screening (asymptomatic). Last mammogram was performed 1 year and 2 months ago. History: Patient is postmenopausal. Family history of breast cancer in maternal aunt. Benign excisional biopsy of the right breast, 1998. Physical Findings: A clinical breast exam by your physician is recommended on an annual basis and results should be correlated with mammographic findings. MG 3D Screening Mammo W/Cad Bilateral CC and MLO view(s) were taken. Prior study comparison: July 01, 2019, bilateral MG 3d screening mammo w/cad. May 31, 2018, bilateral MG 3d screening mammo w/cad. The breast tissue is heterogeneously dense. This may lower the sensitivity of mammography. No significant changes when compared with prior studies. ASSESSMENT: Negative, BI-RAD 1 RECOMMENDATION: Routine screening mammogram of both breasts in 1 year.
== END | disposition home or self-care (01) ==
LOC: RADMAMWWP 15:04
PROVIDERS: ATTEND Family Medicine
DX: Z12.31 Encounter for screening mammogram for malignant neoplasm of breast (principal); M81.0 Age-related osteoporosis without current pathological fracture; Z78.0 Asymptomatic menopausal state; Z80.3 Family history of malignant neoplasm of breast
CPT/HCPCS: 77063; 77067; 77080

== ENCOUNTER 2020-09-14 09:40 | Day surgery (SDC) | payer OTHER, MEDICARE ==
[2020-09-09 15:17] VITALS: BMI 23.6
[~2020-09-14 09:40] MED LIST changes: -ACETAMINOPHEN TAB 500 MG TAB PO ONE; -DEXAMETHASONE SOD PHOSPHATE 10 MG/ML 1 ML VIAL IV ONE; -HYDROmorphone 1 MG/ML 1 ML SYRINGE IVP PRN; +LACTATED RINGERS 1,000 ML IV SCH; +LIDOCAINE 1% (10MG/ML) FOR IV START INTRADERMA PRN; -LIDOCAINE 1% 20 ML VIAL (10MG/ML) FOR IV START INTRADERMA PRN; -MELOXICAM 7.5 MG TAB PO ONE; -MIDAZOLAM 2 MG/2 ML VIAL IV PRN; -ONDANSETRON 4 MG/2 ML VIAL IVP ONE; -SCOPOLAMINE 1.5MG/72HR PATCH TRANSDERM ONE; -TRANEXAMIC ACID 1,000 MG in SODIUM CHLORIDE 0.9% 100 ML IVPB ONE; -ceFAZolin 2 GM in SODIUM CHLORIDE 0.9% 100 ML IVPB ONE
[2020-09-14 10:16] VITALS: RESP 16; TEMP 98.7
[2020-09-14] MEDS ORDERED: PROPOFOL 10 MG/ML 20 ML VIAL IV ONE (11:12)
[2020-09-14] MEDS ORDERED: LIDOCAINE 1% INJ 10MG/ML (20 ML MDV) ONE (11:12)
--- NOTE | 2020-09-14 11:20 | P.GSHP ---
History of Present Illness H&P Date: 09/14/20 Chief Complaint: GERD, screening 70-year-old female here today for upper endoscopy and lower endoscopy. Patient with history of serrated polyp on colonoscopy 4 years ago. Patient with history of chronic reflux. She has taken antacids daily for the last 4 years. No rectal bleeding or melena. No dysphagia. Past Medical History Past Medical History: GERD/Reflux, Hyperlipidemia, Osteoarthritis (OA) Additional Past Medical History / Comment(s): anemia, diverticulosis, colon polyps-benign, high cholesterol, HAS BEEN HAVING ABDOMINAL PAIN OFF AND ON History of Any Multi-Drug Resistant Organisms: None Reported Past Surgical History: Joint Replacement, Tonsillectomy Additional Past Surgical History / Comment(s): C SECTION X2., ANTERIOR TOTAL LEFT HIP, rT hip replacement ,colonoscopy/polypectomy Past Anesthesia/Blood Transfusion Reactions: No Reported Reaction Smoking Status: Former smoker - Past Family History Father Additional Family Medical History / Comment(s): mental illness. in a fire at age 41 or 42 Mother Family Medical History: Congestive Heart Failure (CHF), Deep Vein Thrombosis (DVT) Medications and Allergies Home Medications Medication Instructions Recorded Confirmed Type Sertraline [Zoloft] 50 mg PO DAILY 02/12/15 09/09/20 History Multivitamins, Thera [Multivitamin 1 tab PO DAILY 07/28/16 09/09/20 History (formulary)] Aspirin EC [Ecotrin Low Dose] 81 mg PO DAILY 04/09/18 09/09/20 History Atorvastatin Calcium [Lipitor] 10 mg PO DAILY #30 tab 04/10/18 09/09/20 Rx Loratadine [Claritin] 10 mg PO DAILY tab 01/10/19 09/09/20 Rx Pantoprazole [Protonix] 40 mg PO DAILY #30 tablet. 01/10/19 09/09/20 Rx atenoloL [Atenolol] 25 mg PO DAILY 10/24/19 09/09/20 History Allergies Allergy/AdvReac Type Severity Reaction Status Date / Time No Known Allergies Allergy Verified 09/14/20 10:18 Surgical - Exam Vital Signs Temp Pulse Resp BP Pulse Ox 98.7 F 63 16 136/73 97 09/14/20 10:03 09/14/20 10:03 09/14/20 10:03 09/14/20 10:03 09/14/20 10:03 Physical exam: General: Well-developed, well-nourished HEENT: Normocephalic, sclerae nonicteric Abdomen: Nontender, nondistended Extremities: No edema Neuro: Alert and oriented Assessment and Plan (1) Colon cancer screening Narrative/Plan: Will proceed with upper and lower endoscopy Current Visit: No Status: Acute Code(s): Z12.11 - ENCOUNTER FOR SCREENING FOR MALIGNANT NEOPLASM OF COLON SNOMED Code(s): 591046021
--- NOTE | 2020-09-14 11:43 | P.PCN ---
Date of Procedure: 09/14/20 Procedure(s) Performed: PREOPERATIVE DIAGNOSIS: GERD, screening, history of polyps POSTOPERATIVE DIAGNOSIS: Mild gastritis, small sliding hiatal hernia, diverticulosis PROCEDURE: 1. EGD with biopsy 2. Colonoscopy ANESTHESIA: MAC SURGEON: Dylon Arroyo M.D. SPECIMENS: Antrum ENDOSCOPIC PROCEDURE: The patient was on the endoscopy table in the left decubitus position. The Olympus gastroscope was inserted into the oropharynx and passed under direct visualization to the region of the third portion of the duodenum. From that point the scope was slowly withdrawn inspecting all surfaces carefully. There were no neoplastic inflammatory or polypoid lesions throughout the duodenum. The pylorus was widely patent. The stomach was carefully inspected. There was mild gastritis present. A biopsy of the antrum took place to rule out H. pylori. Retroflexion revealed a small sliding hiatal hernia. The esophagus was then carefully examined. There were no neoplastic inflammatory or polypoid lesions throughout the visualized esophagus. The patient was kept on the endoscopy table in the left decubitus position. The Olympus colonoscope was inserted into the anus and passed under direct visualization to the base of the cecum. The appendiceal orifice was visualized. From that point the scope was slowly withdrawn inspecting all surfaces carefully. There were no neoplastic inflammatory or polypoid lesions throughout the cecum, ascending, transverse, descending, sigmoid and rectum. There was moderate left-sided diverticulosis noted. The patient's colon was quite tortuous as well. Digital rectal examination was normal. The patient was taken to the recovery room in stable condition per anesthesia guidelines. RECOMMENDATIONS: Continue antiacid therapy. Await biopsy results. Follow colonoscopy 5 years.
[2020-09-14 12:01] VITALS: BP 161/80; PULSE 53
== END 2020-09-14 12:24 | disposition home or self-care (01) ==
LOC: ORWHC2ENDO 09:40
PROVIDERS: ATTEND Surgery
DX: K29.50 Unspecified chronic gastritis without bleeding (principal); K21.9 Gastro-esophageal reflux disease without esophagitis; K44.9 Diaphragmatic hernia without obstruction or gangrene; Z12.11 Encounter for screening for malignant neoplasm of colon; K57.30 Diverticulosis of large intestine without perforation or abscess without bleeding; E78.5 Hyperlipidemia, unspecified; M19.90 Unspecified osteoarthritis, unspecified site; Z79.82 Long term (current) use of aspirin; Z79.899 Other long term (current) drug therapy; Z82.49 Family history of ischemic heart disease and other diseases of the circulatory system; Z81.8 Family history of other mental and behavioral disorders; Z84.89 Family history of other specified conditions
CPT/HCPCS: 88305; 43239; J2001; J2704; G0121; 45378

== ENCOUNTER → 2021-06-20 | Outpatient (CLI) | payer OTHER, MEDICARE ==
--- NOTE | 2021-06-21 06:40 | CTL ---
EXAMINATION TYPE: CT Low Dose Lung DATE OF EXAM ORDERED: 06/20/2021 HISTORY: Long-term tobacco use. Lung cancer screening CT DLP: 68.[address] CTDI: 1.8 mGy Automated exposure control for dose reduction was used. SCREENING VISIT: Second after baseline COMPARISON: 2016 and 2018 TECHNIQUE: Low dose computed tomography scan was performed through the chest at 1 mm thick sections a nd reconstructed images in multiple planes at 1 mm and [address] DIAGNOSTIC QUALITY: Satisfactory FINDINGS: LUNG NODULES: Present, detailed below: Stable benign 4 to 5 mm calcified right upper lobe nodule axial image 69. Stable 3 mm calcified left lower lobe nodule or benign granuloma axial image 161. No new greater than 6 mm noncalcified pulmonary nodules. LUNGS: COPD: Severity: Mild to moderate Fibrosis: Severity: Scattered mild to moderate parenchymal fibrotic changes have increased particular ly in the bilateral lower lungs. Lymph nodes: No new greater than 1 cm Other findings: None RIGHT PLEURAL SPACE: Effusion: None Calcification: None Thickening: None Pneumothorax: None LEFT PLEURAL SPACE: Effusion: None Calcification: None Thickening: None Pneumothorax: None HEART: Heart Size: Upper limits of normal Coronary Calcification: Moderate to severe in the LAD and RCA distribution redemonstrated Pericardial Effusion: None OTHER FINDINGS: Upper abdomen: None Bony thorax: There is S-shaped scoliosis with multilevel spurring redemonstrated Supraclavicular region: None Other: None IMPRESSION: No suspicious new noncalcified pulmonary nodules. Moderate basilar fibrotic changes progr essed from [address] LUNG RAD AND CT CHEST RECOMMENDATION: Lung-Rad 2 Benign Appearance or Behavior: Continue annual sc reening with LDCT in 12 months. S Modifier (other clinically significant findings): None
== END | disposition home or self-care (01) ==
LOC: RADCTMAIN 14:55
PROVIDERS: ATTEND Family Medicine
DX: Z12.2 Encounter for screening for malignant neoplasm of respiratory organs (principal); J84.10 Pulmonary fibrosis, unspecified; Z87.891 Personal history of nicotine dependence
CPT/HCPCS: 71271

== ENCOUNTER → 2021-09-26 | Outpatient (CLI) | payer OTHER, MEDICARE ==
--- NOTE | 2021-09-26 21:46 | MR ---
EXAMINATION TYPE: MR lumbar spine wo con DATE OF EXAM: 09/26/2021 COMPARISON: NONE HISTORY: LBP in the center x 2 years. TECHNIQUE: Multiplanar, multisequence imaging of the lumbar spine is performed without IV contrast. FINDINGS: Sagittal images of the lumbar spine show vertebral body heights to appear satisfactory. Mul tilevel spondylolisthesis with grade 1 retrolisthesis of T12 on L1, L1 on L2, L2 on L3, L3 on L4, and to lesser degree L4 on L5. Multilevel disc desiccation with mild to moderate multilevel disc space n arrowing. Moderate multilevel anterior spurring. The conus medullaris is normal in position and sign al in the mid L1 level. Heterogeneous Modic type II endplate changes at the anterior L5 vertebra. Axial images at T12-L1 level show spondylolisthesis seen focal left paracentral disc protrusion effac ing the anterolateral thecal sac.. Bilateral neural foramina are patent. Axial images at L1-L2 level show moderate broad disc bulge effacing anterior thecal sac along with mi ld facet arthropathy and ligament flavum hypertrophy effacing posterolateral thecal sac. Patent bilat eral neural foramina. Axial images at L2-L3 level show spondylolisthesis with moderate to advanced broad disc bulge effacin g the anterior thecal sac, mild facet degenerative changes bilaterally are present. There is mild to moderate bilateral anterior inferior neural foraminal narrowing. Axial images at L3-L4 levels with spondylolisthesis with moderate to advanced broad-based posterior d isc protrusion effacing anterior thecal sac. There is mild facet arthropathy bilaterally. There is mi ld to moderate bilateral anterior inferior neural foraminal narrowing. Axial images at the L4-L5 level shows moderate facet arthropathy ligament flavum hypertrophy. There i s mild/moderate broad based disc protrusion. There is mild effacement of the anterior thecal sac. The re is mild to moderate bilateral anterior inferior neuroforaminal narrowing. Axial images at the L5-S1 level show moderate facet arthropathy bilaterally. There is broad-based rig ht paracentral disc protrusion with foraminal extension causing moderate right-sided neural foraminal narrowing and coursing along the anterior right L5 nerve. There is mild to moderate left-sided anter ior inferior neural foraminal narrowing. Left kidney is low in position in the upper pelvis only partially imaged sagittal image 1. IMPRESSION: Multilevel spondylolisthesis and degenerative changes in the lumbar spine as detailed abo ve.
== END | disposition home or self-care (01) ==
LOC: RADMRIMAIN 18:40
PROVIDERS: ATTEND Nurse Practitioner Family
DX: M43.16 Spondylolisthesis, lumbar region (principal); M47.816 Spondylosis without myelopathy or radiculopathy, lumbar region; M51.26 Other intervertebral disc displacement, lumbar region
CPT/HCPCS: 72148

== ENCOUNTER → 2021-10-10 | Outpatient (CLI) | payer OTHER, MEDICARE ==
--- NOTE | 2021-10-12 08:51 | MM ---
Reason for Exam: Screening (asymptomatic). Last mammogram was performed 1 year(s) and 1 month(s) ago. Patient History: Menarche at age 12. First Full-Term at age 20. Left ovary removed at age 49. Right ovary removed at age 49. Hysterectomy at age 49. Postmenopausal. 1998, Benign Excisional Biopsy on the right side. Maternal aunt had breast cancer, age 62. Risk Values: Nidia 5 year model risk: 1.9%. NCI Lifetime model risk: 4.8%. Film Views: Bilateral CC views were taken. Bilateral MLO views were taken. Prior Study Comparison: 05/31/2018 Bilateral Screening Mammogram, [facility]. 07/01/2019 Bilateral Screening Mammogram, [facility]. 09/06/2020 Bilateral Screening Mammogram, [facility]. Tissue Density: There are scattered fibroglandular densities. Findings: Analyzed By CAD. No suspicious spiculated or lobular masses, clusters of microcalcifications, architectural distortion, or other secondary signs of malignancy are radiographically apparent. Overall Assessment: Benign, BI-RAD 2 Management: Screening Mammogram of both breasts in 1 year. A clinical breast exam by your physician is recommended on an annual basis and results should be correlated with mammographic findings. Patient should continue with self breast exam. Electronically signed and approved by: Hema Camilo D.O. Radiologis
== END | disposition home or self-care (01) ==
LOC: RADMAMWWP 15:59
PROVIDERS: ATTEND Family Medicine
DX: Z12.31 Encounter for screening mammogram for malignant neoplasm of breast (principal); Z78.0 Asymptomatic menopausal state; Z80.3 Family history of malignant neoplasm of breast; Z90.721 Acquired absence of ovaries, unilateral
CPT/HCPCS: 77063; 77067

== ENCOUNTER → 2021-11-02 | Outpatient (CLI) | payer OTHER, MEDICARE ==
[2021-11-02 14:50] VITALS: BP 137/79; PULSE 66; RESP 18; TEMP 98.3
--- NOTE | 2021-11-02 15:17 | P.PAINPG ---
Objective - Vital Signs Vital signs: Vital Signs Temp 98.3 F 11/02/21 14:38 Pulse 66 11/02/21 14:38 Resp 18 11/02/21 14:38 BP 137/79 11/02/21 14:38 Pulse Ox 97 11/02/21 14:38 FiO2 Intake & Output 11/01/21 11/02/21 11/02/21 18:59 06:59 18:59 Weight 58.967 kg PQRS Measure Charge Sheet Mode of Arrival: Ambulatory Comment: HISTORY OF PRESENT ILLNESS: 71 yr old female as a referral from Dr. Brothers presents today with severe and chronic LBP x 2 yrs secondary to spondylolisthesis, DDD and facet arthropathy for evaluation. Patient states her pain level is approximately 9/10 in intensity, constant, dull & achy in the lower aspect of the lumbar spine with radiation of heaviness occasionally to the BLEs. States her pain is provoked with bending, lifting and twisting. Pain is relieved with medications ([place] as needed, Tylenol Arthritis), topicals, PT two times last time 1 1/2 yrs ago without improvement, alternating heat, Lay supine on her R side, repositioning and rest. Past Medical History: GERD, Hyperlipidemia, OA Past Surgical History: BL Hip Replacement, Tonsillectomy, Colonoscopy/ Polypectomy, C section x 2. Social History: Former smoker, No ETOH abuse, No illicit drug use. Family History: Father- Mental Illness/ at age 41 or 42. Mother- CHF, DVT. All: NKDA Meds: See list REVIEW OF ORGAN SYSTEMS: CONSTITUTIONAL: No fevers or chills. No recent weight loss. HEENT: No visual acuity loss, eye pain, difficulties with hearing. No nosebleeds. No difficulty swallowing. RESPIRATORY: Denies any troubles with breathing or dyspnea on exertion. CARDIOVASCULAR: Denies any chest pain, palpitations, or recent heart attacks. GASTROINTESTINAL: Denies fatty food intolerance. Has change in bowel habits and gas bloat. GENITOURINARY: Denies any blood in urine. Has increased urinary frequency. NEUROLOGICAL: + numbness and tingling along the distal extremities. No seizure disorders or headaches. MUSCULOSKELETAL: + back pain SKIN: No skin cancer. No rash. PSYCHIATRIC: Denies current depression or suicidal thoughts. ENDOCRINE: Denies current thyroid disorders. Denies any blood sugar glucose intolerance. HEME/LYMPHATIC: Denies any lumps and bumps around the neck. History of deep venous thrombosis. ALLERGY/IMMUNOLOGY: No immunoglobulin therapy. No immune deficiencies. BREAST: Denies current breast lumps, pain or nipple discharge. Physical Examinations : Constitutional : Cooperative , not in acute distress . HEENT: Neck supple. No Lymphadenopathy. Normal thyroid size . Eyes no ptosis , no icterus, no photophobia . Hearing intact. Normal oropharynx. No Thrush. Respiratory : Chest clear to auscultations bilaterally. No wheezing. No rhonchi. Cardiovascular : Regular rate and rhythm , S1 / S2. No S3 . No S4. Gastrointestinal : Abdomen soft. No tenderness. Bowel sounds x 4. No organomegaly . Genitourinary : Deferred. Neurologic : Cranial nerve II to XII intact. No focal neurological deficits. Psychiatric : alert & oriented x 3. Matching mood & appropriate affect. Judgment & insight intact. Lymphatic No Lymphadenopathy. Musculoskeletal : Cervical Spine Motor strength in the deltoid and biceps: Normal right side. Normal Left side Motor strength biceps and the wrist extensors: Normal right side . Normal left side Motor strength in the triceps muscle: Normal right side. Normal left side Deep tendon reflexes: Normal at the biceps. Normal at Brachioradialis. Normal at triceps Cervical facet loading test: positive bilaterally Spurling test: positive bilaterally Neck distraction test: positive bilaterally Anton sign: positive bilaterally Lumbar spine Motor strength lower extremities ,thigh and legs 5/5 Right side , 5/5 Left side Deep tendon reflexes : Normal Knee Jerk. Normal Ankle Jerk Vertebral body tenderness over L4 Lumbar facet Loading Test: positive Right / positive Left Range of motion of the lumbar spine Flexion 30 degrees, extension 10 degrees Straight Leg Raise test: Left/ Right positive at <40 degree Trang test: positive right / positive left. Severe tenderness over the Sacroiliac joint on the Right / Left sides Gaenslen test: positive bilaterally Seated flexion test: positive bilaterally. Sacral spine : Severe tenderness over the Sacroiliac joint: right side / left side Range of motion: Flexion of the lumbar spine <60 degrees Range of motion: Extension of the lumbar spine <20 degrees Gaenslen's Test positive Carlos's Test positive Trang test: positive right side / left side Thigh Thrust Test Sacral Thrust Test Imaging: MRI without contrast of the lumbar spine from 09/26/21 reviewed Assessment/ Plan : Lumbar DDD, lumbar neuroforaminal stenoses, lumbar facet arthropathy Recommendation of LESI L4-L5. Need a series of injections, up to 3 within a six-month timeframe, for optimal pain relief. Risks, benefits of procedure discussed and patient verbalized understanding. Denies medical history of diabetes. Admits to ASA 81 mg use. Protocol for discontinuation/continuation of medications an procedure discussed. All questions answered. I have spent greater than 50 minutes on patient care today. Dr Corrigan was available by phone for the evaluation of this patient. The time was used to rev iew the medical records including relevant urine studies and Prescription history (MAPs), review of the available imaging, evaluation and examination of the patient, coordination of care with the medical staff and if applicable referring physicians, as well as creation of the medical record - Pain Location Back Non-Pharmacological Interventions: Heat Pharmacological Interventions: Scheduled Medication, Topical Medication PQRS Narrative: Smoking Status Former smoker Blood Pressure 137/79 Pain Intensity [Back] 9 Scale Used Numeric (1 - 10) Hx Alcohol Use (MH) Yes Home Medications: Ambulatory Orders Sertraline [Zoloft] 50 mg PO DAILY 02/12/15 Multivitamins, Thera [Multivitamin (formulary)] 1 tab PO DAILY 07/28/16 Aspirin EC [Ecotrin Low Dose] 81 mg PO DAILY 04/09/18 Atorvastatin Calcium [Lipitor] 10 mg PO DAILY #30 tab 04/10/18 Loratadine [Claritin] 10 mg PO DAILY tab 01/10/19 Pantoprazole [Protonix] 40 mg PO DAILY #30 tablet. 01/10/19 atenoloL 25 mg PO DAILY 10/24/19 Valproic Acid [Depakene] 600 mg PO DAILY 11/01/21 Controlled Substance Measures - Controlled Substance Measures Is patient prescribed a controlled substance at discharge?: No
== END ==
LOC: PNWHC3 13:55
PROVIDERS: ATTEND Specialist
DX: M51.36 Other intervertebral disc degeneration, lumbar region (principal); M48.062 Spinal stenosis, lumbar region with neurogenic claudication; M47.816 Spondylosis without myelopathy or radiculopathy, lumbar region; E78.5 Hyperlipidemia, unspecified; M19.90 Unspecified osteoarthritis, unspecified site; Z87.891 Personal history of nicotine dependence
CPT/HCPCS: 99211

== ENCOUNTER → 2021-12-16 | Outpatient (CLI) | payer OTHER, MEDICARE ==
--- NOTE | 2021-12-16 16:29 | US ---
EXAMINATION TYPE: US pelvic limited DATE OF EXAM: 12/16/2021 COMPARISON: NONE CLINICAL HISTORY: R10.13 LOWER ABD PAIN. Lower abdominal/pelvic pain. Hx 2 C sections. Hx complete hy sterectomy at age 49. Hx cyst removed from pelvis per patient. Hx 1 miscarriage. A1. TECHNIQUE: Transabdominal (TA). Transabdominal sonographic images of the pelvis were acquired. Tra nsvaginal not performed- TV not felt to provide additional information per reading radiologist. Possi ble CT scan could provide additional information. Date of LMP: Age 49 at time of hysterectomy EXAM MEASUREMENTS: Patient states complete hysterectomy. Heterogeneous, hypoechoic area seen midline pelvis that extends slightly into the left pelvis: 8.9 x 6.0 x 3.2 cm. Area is superior to the bladder and does not appear to peristalse during exam. Additi onal workup with contrast CT is recommended. IMPRESSION: 1. Heterogenous mass superior to urinary bladder of uncertain etiology. Additional workup with contra st CT pelvis recommended.
== END | disposition home or self-care (01) ==
LOC: RADUSWWP 14:31
PROVIDERS: ATTEND Family Medicine
DX: N32.89 Other specified disorders of bladder (principal)
CPT/HCPCS: 76857

== ENCOUNTER → 2022-01-04 | Outpatient (CLI) | payer OTHER, MEDICARE ==
--- NOTE | 2022-01-05 07:48 | CT ---
EXAMINATION TYPE: CT abdomen pelvis wo con DATE OF EXAM: 01/04/2022 HISTORY: intra-abdominal and pelvic swelling CT DLP: 313.0 mGycm. Automated Exposure Control for Dose Reduction was Utilized. TECHNIQUE: CT scan of the abdomen and pelvis is performed with oral but without IV contrast. COMPARISON: Limited pelvic ultrasound December 16, 2021 FINDINGS: Within the limitations of a non-contrast study, the following observations are made. LUNG BASES: Mild scattered bibasilar linear scarring and/or atelectasis. Some coronary artery calcifi cation in the RCA distribution noted. LIVER/GB: No significant abnormality is appreciated. PANCREAS: No significant abnormality is seen. SPLEEN: No significant abnormality is seen. ADRENALS: No significant abnormality is seen. KIDNEYS: Left kidney not in normal anatomical position left renal fossa. There is low lying kidney in the left pelvis axial image 49 likely accounting for the ill-defined mass on recent ultrasound. Ther e is loss of normal cortical medullary differentiation. BOWEL: The oral contrast does not reach terminal ileum level making evaluation of distal bowel subopt imal. No suspicious small or large bowel dilatation. GENITAL ORGANS: Uterus is surgically absent. LYMPH NODES: No greater than 1cm abdominal or pelvic lymph nodes are appreciated. OSSEOUS STRUCTURES: Metallic hardware from bilateral hip arthroplasty causes streak artifact limiting evaluation of pelvic structures. Mild to moderate multilevel spurring in the spine. OTHER: Mild to moderate calcified plaque of the aorta extends into branch vessels. IMPRESSION: Low lying left pelvic kidney accounts for the finding solid mass in the pelvis on recent ultrasound.
== END | disposition home or self-care (01) ==
LOC: RADCTMAIN 15:11
PROVIDERS: ATTEND Family Medicine
DX: Z01.812 Encounter for preprocedural laboratory examination (principal); R19.09 Other intra-abdominal and pelvic swelling, mass and lump
CPT/HCPCS: 82565; 84520; 74176; 36415; Q9967

== ENCOUNTER 2022-03-03 15:40 | Emergency (ER) | payer MEDICARE, OTHER ==
[2022-03-03 15:51] VITALS: BP 182/82; PULSE 69; RESP 20; TEMP 98
[2022-03-03 16:17] LABS: Basophils % (A) 0 %; Eosinophils # (A) 0.1 k/uL (0-0.7); Eosinophils % (A) 1 %; HCT 38.4 % (34.0-46.0); HGB 12.9 gm/dL (11.4-16.0); Lymphocytes # (A) 1.4 k/uL (1.0-4.8); Lymphocytes % (A) 16 %; MCH 32.2 pg (25.0-35.0); MCHC 33.6 g/dL (31.0-37.0); MCV 95.7 fL (80.0-100.0); Mean Platelet Volume 8.3; Monocytes # (A) 0.6 k/uL (0-1.0); Monocytes % (A) 6 %; Neutrophils # (A) 6.7 k/uL (1.3-7.7); Neutrophils % (A) 75 %; Platelet Count 286 k/uL (150-450); RBC 4.01 m/uL (3.80-5.40); WBC 8.9 k/uL (3.8-10.6)
[2022-03-03 16:26] LABS: ALT 23 U/L (4-34); AST 34 U/L (14-36); African American GFR (CKD) >90 (>60 ml/min/1.73 sqM); Albumin 4.6 g/dL (3.5-5.0); Alkaline Phosphatase 92 U/L (38-126); Anion Gap 11 mmol/L; Blood Urea Nitrogen 24 mg/dL (7-17); Calcium 9.8 mg/dL (8.4-10.2); Carbon Dioxide 23 mmol/L (22-30); Chloride 100 mmol/L (98-107); Glucose 103 mg/dL (74-99); Magnesium 1.7 mg/dL (1.6-2.3); Non-African American GFR(CKD) 89 (>60 ml/min/1.73 sqM); Potassium 4.9 mmol/L (3.5-5.1); Sodium 134 mmol/L (137-145); Total Bilirubin 0.8 mg/dL (0.2-1.3)
[2022-03-03 16:33] LABS: INR 0.9 (<1.2); Partial Thromboplastin Time 23.2 sec (22.0-30.0); Prothrombin Time 10.4 sec (9.0-12.0)
--- NOTE | 2022-03-03 16:37 | XR ---
EXAMINATION TYPE: XR chest 2V DATE OF EXAM: 03/03/2022 COMPARISON: Chest x-ray 10/25/2019 HISTORY: Chest pain TECHNIQUE: Frontal and lateral views of the chest are obtained. FINDINGS: There is no focal air space opacity, pleural effusion, or pneumothorax seen. The cardiac silhouette size is within normal limits. Biapical pleural thickening is present. There is a spinal c urvature. Aorta is dense. Some minimal basal scarring at the left costophrenic angle is again noted. The osseous structures are intact. IMPRESSION: No acute cardiopulmonary process.
--- NOTE | 2022-03-03 21:28 | ED ---
Chest Pain HPI - General Chief Complaint: Chest Pain Stated Complaint: Chest Pain Time Seen by Provider: 03/03/22 21:18 Source: patient Mode of arrival: ambulatory Limitations: no limitations - History of Present Illness Initial Comments: 's patient is 72-year-old woman who presents to have evaluation for right-sided chest pain. She had noticed it this morning. She states she initially was thinking that it was due to some lifting that she had been doing yesterday. She states the pain is mainly present when she takes a deep breath in. When she is just sitting normally she is not really have any pain. She has not noted any other worsening or relieving factors. She has not had any associated symptoms. No fever or chills, cough, palpitations, lightheadedness or syncope, nausea or vomiting. MD Complaint: chest pain Onset/Timin -: hour(s) Onset: during rest Pain Location: right chest Pain Radiation: back Severity: moderate Quality: dull Consistency: intermittent Improves With: nothing Worsens With: inspiration Treatments Prior to Arrival: none - Related Data Home Medications Medication Instructions Recorded Confirmed Sertraline [Zoloft] 50 mg PO DAILY 02/12/15 11/02/21 Multivitamins, Thera [Multivitamin 1 tab PO DAILY 07/28/16 11/02/21 (formulary)] Aspirin EC [Ecotrin Low Dose] 81 mg PO DAILY 04/09/18 11/02/21 atenoloL 25 mg PO DAILY 10/24/19 11/02/21 Valproic Acid [Depakene] 600 mg PO DAILY 11/01/21 11/02/21 Previous Rx's Medication Instructions Recorded Atorvastatin Calcium [Lipitor] 10 mg PO DAILY #30 tab 04/10/18 Loratadine [Claritin] 10 mg PO DAILY tab 01/10/19 Pantoprazole [Protonix] 40 mg PO DAILY #30 tablet. 01/10/19 Allergies Allergy/AdvReac Type Severity Reaction Status Date / Time No Known Allergies Allergy Verified 03/03/22 15:51 Review of Systems ROS Statement: Those systems with pertinent positive or pertinent negative responses have been documented in the HPI. ROS Other: All systems not noted in ROS Statement are negative. Constitutional: Denies: fever, chills Respiratory: Denies: cough, dyspnea, hemoptysis Cardiovascular: Reports: chest pain. Denies: palpitations, dyspnea on exertion, orthopnea, edema, syncope Gastrointestinal: Denies: abdominal pain, vomiting, diarrhea Genitourinary: Denies: dysuria, hematuria Musculoskeletal: Denies: back pain Skin: Denies: rash Neurological: Denies: headache, weakness EKG Findings - EKG Results: EKG: interpreted by OUSMANE, sinus rhythm (Rate 60 bpm), normal axis, normal QRS, normal ST/T - Blocks, [place], Hypertrophy, ST Abn: AV and intraventricular conduction: 1 AV block Past Medical History Past Medical History: GERD/Reflux, Hyperlipidemia, Musculoskeletal Disorder, Osteoarthritis (OA) Additional Past Medical History / Comment(s): Anemia, diverticulosis, colon polyps-benign, Degenerative Disc Disease. History of Any Multi-Drug Resistant Organisms: None Reported Past Surgical History: Section, Joint Replacement, Orthopedic Surgery Additional Past Surgical History / Comment(s): X2, ANTERIOR TOTAL LEFT HIP, right hip replacement, colonoscopy/polypectomy. Past Anesthesia/Blood Transfusion Reactions: No Reported Reaction Past Psychological History: Anxiety, Depression Smoking Status: Former smoker Past Alcohol Use History: Occasional Past Drug Use History: None Reported - Past Family History Father Additional Family Medical History / Comment(s): Mental illness. in a fire at age 41 or 42. Mother Family Medical History: Congestive Heart Failure (CHF), Deep Vein Thrombosis (DVT) General Exam Limitations: no limitations General appearance: alert, in no apparent distress Head exam: Present: atraumatic, normocephalic Eye exam: Present: normal appearance. Absent: scleral icterus, conjunctival injection Neck exam: Present: normal inspection Respiratory exam: Present: normal lung sounds bilaterally. Absent: respiratory distress, wheezes, rales, rhonchi, stridor, chest wall tenderness, accessory muscle use, decreased breath sounds Cardiovascular Exam: Present: regular rate, normal rhythm, normal heart sounds. Absent: systolic murmur, diastolic murmur, rubs, gallop GI/Abdominal exam: Present: soft. Absent: distended, tenderness, guarding, re bound, rigid, mass Extremities exam: Present: normal inspection, normal capillary refill. Absent: pedal edema, calf tenderness Back exam: Present: normal inspection. Absent: vertebral tenderness Neurological exam: Present: alert Skin exam: Present: warm, dry, intact, normal color. Absent: rash Course Vital Signs 03/03/22 15:48 Temperature 98.0 F Pulse Rate 69 Respiratory 20 Rate Blood Pressure 182/82 O2 Sat by Pulse 98 Oximetry Disposition Clinical Impression: Chest pain Disposition: HOME SELF-CARE Condition: Good Instructions (If sedation given, give patient instructions): Chest Pain (ED) Is patient prescribed a controlled substance at d/c from ED?: No Referrals: Jessica Arroyo MD [Primary Care Provider] - 1-2 days
== END 2022-03-03 23:36 | disposition home or self-care (01) ==
LOC: EC 15:40
DX: R07.9 Chest pain, unspecified (principal); K21.9 Gastro-esophageal reflux disease without esophagitis; E78.5 Hyperlipidemia, unspecified; M19.90 Unspecified osteoarthritis, unspecified site; Z87.891 Personal history of nicotine dependence; Z79.82 Long term (current) use of aspirin; Z79.1 Long term (current) use of non-steroidal anti-inflammatories (NSAID)
CPT/HCPCS: 36415; 71046; 80053; 83735; 84484; 85025; 85379; 85610; 85730; 93005; 99285

== ENCOUNTER 2022-08-04 16:37 | Emergency (ER) | payer MEDICARE ==
--- NOTE | 2022-08-04 17:16 | ED ---
Chest Pain HPI - General Chief Complaint: Chest Pain Stated Complaint: Chest Pain Time Seen by Provider: 08/04/22 16:56 Source: EMS Mode of arrival: EMS Limitations: no limitations - History of Present Illness Initial Comments: This patient is 72-year-old woman who presents to have evaluation for a number of symptoms of been going back a few days. She has been having some intermittent chest pains. These recurred today a number of hours ago. She did go to see her physician, was seen in the clinic and recommended to be seen in emergency. The patient also has been having intermittent dizziness and states she had actually fallen about a week ago. She denies pains currently related to the fall. She states she did not have headache, neck, back, chest or extremity pains. MD Complaint: chest pain Onset/Timin -: hour(s) Onset: during rest Pain Location: substernal Pain Radiation: none Severity: mild Quality: other (Pressure) Consistency: constant Improves With: nothing Worsens With: nothing Treatments Prior to Arrival: none - Related Data Home Medications Medication Instructions Recorded Confirmed Sertraline [Zoloft] 50 mg PO DAILY 02/12/15 08/04/22 Aspirin EC [Ecotrin Low Dose] 81 mg PO DAILY 04/09/18 08/04/22 atenoloL 25 mg PO DAILY 10/24/19 08/04/22 Beclomethasone Dip 80 Mcg/Puff 1 puff INHALATION RT-DAILY 08/04/22 08/04/22 [Qvar 80 mcg] Cetirizine HCl 10 mg PO DAILY 08/04/22 08/04/22 Montelukast [Singulair] 10 mg PO DAILY 08/04/22 08/04/22 Previous Rx's Medication Instructions Recorded Atorvastatin Calcium [Lipitor] 10 mg PO DAILY #30 tab 04/10/18 Pantoprazole [Protonix] 40 mg PO DAILY #30 tablet. 01/10/19 Allergies Allergy/AdvReac Type Severity Reaction Status Date / Time No Known Allergies Allergy Verified 08/04/22 18:05 Review of Systems ROS Statement: Those systems with pertinent positive or pertinent negative responses have been documented in the HPI. ROS Other: All systems not noted in ROS Statement are negative. Constitutional: Denies: fever, chills Respiratory: Denies: cough, dyspnea Cardiovascular: Reports: as per HPI, chest pain. Denies: palpitations, orthopnea, edema, syncope Gastrointestinal: Denies: abdominal pain, nausea, vomiting, diarrhea Genitourinary: Denies: dysuria, hematuria Musculoskeletal: Denies: back pain Skin: Denies: rash Neurological: Denies: headache, weakness, numbness EKG Findings - EKG Results: EKG: interpreted by ERMD, sinus rhythm, normal axis, normal QRS, normal ST/T EKG shows: bradycardia (Rate 58 bpm) - Blocks, [place], Hypertrophy, ST Abn: AV and intraventricular conduction: 1 AV block Past Medical History Past Medical History: GERD/Reflux, Hyperlipidemia, Musculoskeletal Disorder, Osteoarthritis (OA) Additional Past Medical History / Comment(s): Anemia, diverticulosis, colon polyps-benign, Degenerative Disc Disease. History of Any Multi-Drug Resistant Organisms: None Reported Past Surgical History: Section, Joint Replacement, Orthopedic Surgery Additional Past Surgical History / Comment(s): X2, ANTERIOR TOTAL LEFT HIP, right hip replacement, colonoscopy/polypectomy. Past Anesthesia/Blood Transfusion Reactions: No Reported Reaction Past Psychological History: Anxiety, Depression Smoking Status: Former smoker Past Alcohol Use History: Occasional Past Drug Use History: None Reported - Past Family History Father Additional Family Medical History / Comment(s): Mental illness. in a fire at age 40 or 41. Mother Family Medical History: Congestive Heart Failure (CHF), Deep Vein Thrombosis (DVT) General Exam Limitations: no limitations General appearance: alert, in no apparent distress Head exam: Present: atraumatic, normocephalic Eye exam: Present: normal appearance. Absent: scleral icterus, conjunctival injection Neck exam: Present: normal inspection Respiratory exam: Present: normal lung sounds bilaterally. Absent: respiratory distress, wheezes, rales, rhonchi, stridor, chest wall tenderness Cardiovascular Exam: Present: regular rate, normal rhythm, normal heart sounds. Absent: systolic murmur, diastolic murmur, rubs, gallop GI/Abdominal exam: Present: soft. Absent: distended, tenderness, guarding, rebound, rigid, mass Extremities exam: Present: normal inspection, normal capillary refill. Absent: pedal edema, calf tenderness Back exam: Present: normal inspection. Absent: CVA tenderness (R), CVA tenderness (L) Neurological exam: Present: alert Skin exam: Present: warm, dry, intact, normal color. Absent: rash Course Vital Signs 08/04/22 08/04/22 08/04/22 16:38 18:00 19:30 Temperature 98.1 F Pulse Rate 62 67 70 Respiratory 18 18 14 Rate Blood Pressure 192/75 190/84 177/85 O2 Sat by Pulse 97 95 93 L Oximetry 08/04/22 08/04/22 20:00 22:21 Temperature 98.2 F Pulse Rate 60 62 Respiratory 17 18 Rate Blood Pressure 162/76 158/80 O2 Sat by Pulse 93 L 95 Oximetry Chest Pain MDM - MDM This patient is a 72-year-old woman here to have evaluation for some dizziness that she has been having as well as intermittent chest pains. The workup here is unremarkable. I did suggest admission for serial cardiac enzymes and telemetry monitoring, but the patient states she is feeling well and would like to go home at this point. We discussed appropriate further care and follow-up as well as return parameters. The patient did have chest x-ray which I interpreted as not showing acute infiltrate, congestive heart failure, or pneumothorax. Was pt. sent in by a medical professional or institution (, PA, PIPELINER, urgent care, hospital, or jail...) When possible be specific @ -[This patient sent from primary clinic Did you speak to anyone other than the patient for history (EMS, parent, family, police, friend...)? What history was obtained from this source @ -[No] Did you review nursing and triage notes (agree or disagree)? Why? @ -[I reviewed and agree with nursing and triage notes] Were old charts reviewed (outside hosp., previous admission, EMS record, old EKG, old radiological studies, urgent care reports/EKG's, jail records)? Report findings @ -[No old charts were reviewed] Differential Diagnosis (chest pain, altered mental status, abdominal pain women, abdominal pain men, vaginal bleeding, weakness, fever, dyspnea, syncope, headache, dizziness, GI bleed, back pain, seizure, CVA, palpatations, mental health, musculoskeletal)? @ -[Differential Chest Pain: Stable Angina, Unstable Angina, STEMI, NSTEMI Aortic Dissection, Pneumothorax, Musculoskeletal, Esophageal Spasm GERD, Cholecystitis, Pancreatitis, Zoster, this is not meant to be an all-inclusive list. EKG interpreted by me (3pts min.). @ -[As above] X-rays as above CT interpreted by me (1pt min.). @ -[None done] U/S interpreted by me (1pt. min.). @ -[None done] What testing was considered but not performed or refused? (CT, X-rays, U/S, labs)? Why? @ -[None] What meds were considered but not given or refused? Why? @ -[None] Did you discuss the management of the patient with other professionals (professionals i.e. , PA, PIPELINER, lab, RT, psych nurse, social work case manager, prop cutter, teacher, co founder and chief strategy officer, social work case manager)? Give summary @ -[No] Was smoking cessation discussed for >3mins.? @ -[No] Was critical care preformed (if so, how long)? @ -[No] Were there social determinants of health that impacted care today? How? (Homelessness, low income, unemployed, alcoholism, drug addiction, transportation, low edu. Level, literacy, decrease access to med. care, [facility], rehab)? @ -[No] Was there de-escalation of care discussed even if they declined (Discuss DNR or withdrawal of care, Hospice)? DNR status @ -[No] What co-morbidities impacted this encounter? (DM, HTN, Smoking, COPD, CAD, Cancer, CVA, ARF, Chemo, Hep., AIDS, mental health diagnosis, sleep apnea, morbid obesity)? @ -[None] Was patient admitted / discharged? Hospital course, mention meds given and route, prescriptions, significant lab abnormalities, going to OR and other pertinent info. @ -[As discussed above, the patient is offered admission but states she would rather go home at this point will return if symptoms recur. Will have close fo llow-up with cardiology. Undiagnosed new problem with uncertain prognosis? @ -[No] Drug Therapy requiring intensive monitoring for toxicity (Heparin, Nitro, Insulin, Cardizem)? @ -[No] Were any procedures done? @ -[No] Diagnosis/symptom? @ -[1. Acute chest pain, uncomplicated 2. Intermittent dizziness. Acute, or Chronic, or Acute on Chronic? @ -[Acute Uncomplicated (without systemic symptoms) or Complicated (systemic symptoms)? @ -[Uncomplicated Side effects of treatment? @ -[No] Exacerbation, Progression, or Severe Exacerbation? @ -[No] Poses a threat to life or bodily function? How? (Chest pain, [place], [place], pneumonia, PE, COPD, DKA, ARF, appy, cholecystitis, CVA, Diverticulitis, Homicidal, Suicidal, threat to staff... and all critical care pts) @ -[Uncertain Disposition Clinical Impression: Chest pain Disposition: HOME SELF-CARE Condition: Good Instructions (If sedation given, give patient instructions): Chest Pain (ED) Is patient prescribed a controlled substance at d/c from ED?: No Referrals: Jessica Arroyo MD [Primary Care Provider] - 1-2 days
[2022-08-04 17:45] LABS: Basophils % (A) 0 %; Eosinophils # (A) 0.1 k/uL (0-0.7); Eosinophils % (A) 2 %; HCT 37.4 % (34.0-46.0); HGB 12.4 gm/dL (11.4-16.0); Lymphocytes # (A) 1.5 k/uL (1.0-4.8); Lymphocytes % (A) 19 %; MCH 31.9 pg (25.0-35.0); MCHC 33.3 g/dL (31.0-37.0); MCV 95.7 fL (80.0-100.0); Mean Platelet Volume 8.8; Monocytes # (A) 0.3 k/uL (0-1.0); Monocytes % (A) 4 %; Neutrophils # (A) 5.4 k/uL (1.3-7.7); Neutrophils % (A) 73 %; Platelet Count 270 k/uL (150-450); RDW 12.5 % (11.5-15.5); WBC 7.5 k/uL (3.8-10.6)
--- NOTE | 2022-08-04 17:49 | XR ---
EXAMINATION TYPE: XR chest 2V DATE OF EXAM: 08/04/2022 COMPARISON: 03/03/2022 HISTORY: Chest pain TECHNIQUE: 2 views FINDINGS: Heart is normal. Lungs are clear of infiltrate. No heart failure. There are no hilar masses . There is some linear density left lung base. There is 20% anterior wedging of mid thoracic vertebra . IMPRESSION: No active cardiopulmonary disease. Mild subsegmental atelectasis left lung base. No soriano e.
[2022-08-04 17:55] LABS: Partial Thromboplastin Time 22.5 sec (22.0-30.0); Prothrombin Time 10.5 sec (9.0-12.0)
[2022-08-04 19:36] LABS: Amylase 55 U/L (30-110); Lipase 83 U/L (23-300)
[2022-08-04 21:27] LABS: ALT 18 U/L (4-34); African American GFR (CKD) >90 (>60 ml/min/1.73 sqM); Anion Gap 6 mmol/L; Blood Urea Nitrogen 16 mg/dL (7-17); Calcium 9.1 mg/dL (8.4-10.2); Carbon Dioxide 25 mmol/L (22-30); Chloride 101 mmol/L (98-107); Glucose 85 mg/dL (74-99); Non-African American GFR(CKD) >90 (>60 ml/min/1.73 sqM); Sodium 132 mmol/L (137-145); Total Bilirubin 0.9 mg/dL (0.2-1.3); Total Protein 6.6 g/dL (6.3-8.2)
[2022-08-04 21:41] LABS: AST 31 U/L (14-36); Alkaline Phosphatase 70 U/L (38-126); Potassium 4.7 mmol/L (3.5-5.1)
[2022-08-04 22:23] VITALS: BP 158/80; PULSE 62; RESP 18; TEMP 98.2
== END 2022-08-04 22:21 | disposition home or self-care (01) ==
LOC: EC 16:37
DX: R07.89 Other chest pain (principal); E78.5 Hyperlipidemia, unspecified; M19.90 Unspecified osteoarthritis, unspecified site; F41.9 Anxiety disorder, unspecified; F32.A Depression, unspecified; Z79.51 Long term (current) use of inhaled steroids; Z79.82 Long term (current) use of aspirin; Z79.899 Other long term (current) drug therapy; Z87.891 Personal history of nicotine dependence
CPT/HCPCS: 36415; 71046; 80053; 82150; 83690; 84484; 85025; 85610; 85730; 93005; 99285

== ENCOUNTER 2022-09-02 14:22 | Emergency (ER) | payer OTHER, MEDICARE ==
[2022-09-02 14:55] VITALS: RESP 18; TEMP 98.6
[2022-09-02] MEDS ORDERED: SODIUM CHLORIDE 0.9% 1,000 ML IV STA (15:48)
--- NOTE | 2022-09-02 15:49 | ED ---
Syncope HPI - General Chief Complaint: Fall Stated Complaint: Fall - [facility] Source: patient, EMS, RN notes reviewed, old records reviewed Mode of arrival: EMS Limitations: no limitations - History of Present Illness Initial Comments: This is a 72-year-old female to the emergency department for fall. Fall from standing with a syncopal event. Unsure if it was prior to fall after the fall. Patient did have head injury from the fall does have significant facial laceration from the fall for a laceration with no other specific injury noted. Patient denies current headache chest pain shortness breath or abdominal pain. Patient feels silly that her fall was so significant and denying current complaints if he does state if she had to complain of anything of pain in her right arm right elbow right wrist. No prior history of syncopal event. No chest pain or shortness breath prior to syncope MD Complaint: loss of consciousness, collapsed, other (Fall with head injury) -: minutes(s) Prodromal Symptoms: none -: second(s) Witnessed: yes - by bystander Injuries Sustained Associated with Event: Face Current Symptoms: back to baseline Context: during exertion Treatments Prior to Arrival: none - Related Data Home Medications Medication Instructions Recorded Confirmed Sertraline [Zoloft] 50 mg PO DAILY 02/12/15 08/04/22 Aspirin EC [Ecotrin Low Dose] 81 mg PO DAILY 04/09/18 08/04/22 atenoloL 25 mg PO DAILY 10/24/19 08/04/22 Beclomethasone Dip 80 Mcg/Puff 1 puff INHALATION RT-DAILY 08/04/22 08/04/22 [Qvar 80 mcg] Cetirizine HCl 10 mg PO DAILY 08/04/22 08/04/22 Montelukast [Singulair] 10 mg PO DAILY 08/04/22 08/04/22 Previous Rx's Medication Instructions Recorded Atorvastatin Calcium [Lipitor] 10 mg PO DAILY #30 tab 04/10/18 Pantoprazole [Protonix] 40 mg PO DAILY #30 tablet. 01/10/19 Allergies Allergy/AdvReac Type Severity Reaction Status Date / Time No Known Allergies Allergy Verified 08/04/22 18:05 Review of Systems ROS Statement: Those systems with pertinent positive or pertinent negative responses have been documented in the HPI. ROS Other: All systems not noted in ROS Statement are negative. Past Medical History Past Medical History: GERD/Reflux, Hyperlipidemia, Musculoskeletal Disorder, Osteoarthritis (OA) Additional Past Medical History / Comment(s): Anemia, diverticulosis, colon polyps-benign, Degenerative Disc Disease. History of Any Multi-Drug Resistant Organisms: None Reported Past Surgical History: Section, Joint Replacement, Orthopedic Surgery Additional Past Surgical History / Comment(s): X2, ANTERIOR TOTAL LEFT HIP, right hip replacement, colonoscopy/polypectomy. Past Anesthesia/Blood Transfusion Reactions: No Reported Reaction Past Psychological History: Anxiety, Depression Smoking Status: Former smoker Past Alcohol Use History: Occasional Past Drug Use History: None Reported - Past Family History Father Additional Family Medical History / Comment(s): Mental illness. in a fire at age 40 or 41. Mother Family Medical History: Congestive Heart Failure (CHF), Deep Vein Thrombosis (DVT) General Exam - General Exam Comments Initial Comments: Patient does have minimal bleeding from forehead laceration Limitations: no limitations General appearance: alert, in no apparent distress Head exam: Present: normocephalic, normal inspection. Absent: atraumatic (forehead laceration) Eye exam: Present: normal appearance, PERRL, EOMI. Absent: scleral icterus, conjunctival injection, periorbital swelling ENT exam: Present: normal exam, mucous membranes moist Neck exam: Present: normal inspection. Absent: tenderness, meningismus, lymphadenopathy Respiratory exam: Present: normal lung sounds bilaterally. Absent: respiratory distress, wheezes, rales, rhonchi, stridor Cardiovascular Exam: Present: regular rate, normal rhythm, normal heart sounds. Absent: systolic murmur, diastolic murmur, rubs, gallop, clicks GI/Abdominal exam: Present: soft, normal bowel sounds. Absent: distended, tenderness, guarding, rebound, rigid Extremities exam: Present: normal inspection, full ROM, normal capillary refill. Absent: tenderness, pedal edema, joint swelling, calf tenderness Back exam: Present: normal inspection Neurological exam: Present: alert, oriented X3, CN II-XII intact Psychiatric exam: Present: normal affect, normal mood Skin exam: Present: warm, dry, intact, normal color. Absent: rash Course Vital Signs 09/02/22 09/02/22 14:48 16:55 Temperature 98.6 F Pulse Rate 75 79 Respiratory 18 18 Rate Blood Pressure 132/68 170/86 O2 Sat by Pulse 94 L 96 Oximetry - Reevaluation(s) Reevaluation #1: 09/02/22 19:36 Medical record is reviewed 09/02/22 22:05 Patient has no complaints of headache Reevaluation #2: 09/02/22 19:36 Patient has no change in symptoms no recurrent syncope here in the ER 09/02/22 22:05 Again no recurrent syncope here in the ER Spoke patient length regarding findings of her computed tomography scan and no change in imaging, patient would prefer discharged I think patient is safe for discharge home to return to ER if symptoms present themselves Reevaluation #3: 09/02/22 19:36 Patient informed results and questions answered Reevaluation #4: 09/02/22 19:37 Was pt. sent in by a medical professional or institution? @ -no Did you speak to anyone other than the patient for history? @ -no Did you review nursing and triage notes? @ -agree Were old charts reviewed? @ -no Differential Diagnosis? @ -no EKG interpreted by me (3pts min.)? @ -no X-rays interpreted by me (1pt min.)? @ -no CT interpreted by me (1pt min.)? @ -no U/S interpreted by me (1pt. min.)? @ -no What testing was considered but not performed? (CT, X-rays, U/S, labs)? Why? @ -no What meds were considered but not given? Why? @ -no Did you discuss the management of the patient with other professionals? @ -no Did you reconcile home meds? @ -no Was smoking cessation discussed for >3mins.? @ -no Was critical care preformed (if so, how long)? @ -no Were there social determinants of health that impacted care today? How? (Homelessness, low income, unemployed, alcoholism, drug addiction, transportation, low edu. Level, literacy, decrease access to med. care, assisted, rehab)? @ -no Was there de-escalation of care discussed even if they declined? (Discuss DNR or withdrawal of care, Hospice)? @ -no What co-morbidities impacted this encounter? (DM, HTN, Smoking, COPD, CAD, Cancer, CVA, Hep., AIDS, mental health diagnosis, sleep apnea, morbid obesity)? @ -no Was patient admitted / discharged? @ -transfer Undiagnosed new problem with uncertain prognosis? @ -no Drug Therapy requiring intensive monitoring for toxicity (Heparin, Nitro, Insulin, Cardizem)? @ -no Were any procedures done? @ -dermabond to laceration Diagnosis/symptom? @ -fall, head laceration, syncope Acute, or Chronic, or Acute on Chronic? @ -acute Uncomplicated (without systemic symptoms) or Complicated (systemic symptoms)? @ -uncomplicated Side effects of treatment? @ -no Exacerbation, Progression, or Severe Exacerbation] @ -no Poses a threat to life or bodily function? @ -syncope can be from underlying pathology that can result in significant morbidity Reevaluation #5: 09/02/22 19:36 Differential Syncope: Valvular disease, hypertrophic cardiomyopathy, pulmonary embolism, tamponade, tachycardia, bradycardia, SC, hypovolemia, hemorrhage, dissection, anemia, intracranial hemorrhage, seizure, hypoglycemia, carbon monoxide poisoning, this is not meant to be an all-inclusive list. - Consultations Consultation #1: Spoke with radiologist regarding CT findings Spoke with Dr. Cloud regarding possible observation here at this hospital which she is not 4, recommended transfer EKG Findings - EKG Comments: EKG Findings:: EKG shows sinus 62 MA 229 QRS 78 QTc 434 Procedures - Laceration Laceration #1 Consent Obtained: verbal consent Indication: laceration Site: face Size (cm): 3 Description: linear Type of Sutures: other (Dermabond) Patient Tolerated Procedure: well Medical Decision Making - Medical Decision Making 72 female to the emergency department for evaluation patient with syncopal event prior to arrival resulting in for laceration. Computed tomography scan did come back showing possible area of subarachnoid hemorrhage the patient will be transferred to [facility] for further monitoring patient does have possible subarachnoid hemorrhage versus faster calcification on initial computed tomography scan area is small, we did do a repeat computed tomography scan at 6 hours which shows no change, I did speak with patient regarding findings, she has no headache or symptoms currently. Patient will be discharged home to follow up with primary care next week patient will return if headache or symptoms of vomiting or neurological changes present - Lab Data Result diagrams: 09/02/22 15:53 09/02/22 15:53 Lab Results 09/02/22 09/02/22 09/02/22 Range/Units 15:53 15:53 15:53 WBC 7.5 (3.8-10.6) k/uL RBC 3.94 (3.80-5.40) m/uL Hgb 12.6 (11.4-16.0) gm/dL Hct 37.5 (34.0-46.0) % MCV 95.1 (80.0-100.0) fL MCH 31.9 (25.0-35.0) pg MCHC 33.6 (31.0-37.0) g/dL RDW 12.9 (11.5-15.5) % Plt Count 230 (150-450) k/uL MPV 8.8 Neutrophils % 73 % Lymphocytes % 18 % Monocytes % 6 % Eosinophils % 2 % Basophils % 0 % Neutrophils # 5.5 (1.3-7.7) k/uL Lymphocytes # 1.3 (1.0-4.8) k/uL Monocytes # 0.4 (0-1.0) k/uL Eosinophils # 0.1 (0-0.7) k/uL Basophils # 0.0 (0-0.2) k/uL PT 11.0 (9.0-12.0) sec INR 1.0 (<1.2) APTT 23.1 (22.0-30.0) sec D-Dimer 2.29 H (<0.60) mg/L FEU Sodium 135 L (137-145) mmol/L Potassium 4.6 (3.5-5.1) mmol/L Chloride 104 (98-107) mmol/L Carbon Dioxide 25 (22-30) mmol/L Anion Gap 6 mmol/L BUN 32 H (7-17) mg/dL Creatinine 1.06 H (0.52-1.04) mg/dL Est GFR (CKD-EPI)AfAm 60 (>60 ml/min/1.73 sqM) Est GFR (CKD-EPI)NonAf 52 (>60 ml/min/1.73 sqM) Glucose 109 H (74-99) mg/dL Calcium 9.2 (8.4-10.2) mg/dL Phosphorus 3.6 (2.5-4.5) mg/dL Magnesium 1.7 (1.6-2.3) mg/dL Total Bilirubin 0.5 (0.2-1.3) mg/dL AST 33 (14-36) U/L ALT 23 (4-34) U/L Alkaline Phosphatase 65 (38-126) U/L Troponin I (0.000-0.034) ng/mL NT-Pro-B Natriuret Pep pg/mL Total Protein 6.5 (6.3-8.2) g/dL Albumin 4.0 (3.5-5.0) g/dL 09/02/22 09/02/22 Range/Units 15:53 15:53 WBC (3.8-10.6) k/uL RBC (3.80-5.40) m/uL Hgb (11.4-16.0) gm/dL Hct (34.0-46.0) % MCV (80.0-100.0) fL MCH (25.0-35.0) pg MCHC (31.0-37.0) g/dL RDW (11.5-15.5) % Plt Count (150-450) k/uL MPV Neutrophils % % Lymphocytes % % Monocytes % % Eosinophils % % Basophils % % Neutrophils # (1.3-7.7) k/uL Lymphocytes # (1.0-4.8) k/uL Monocytes # (0-1.0) k/uL Eosinophils # (0-0.7) k/uL Basophils # (0-0.2) k/uL PT (9.0-12.0) sec INR (<1.2) APTT (22.0-30.0) sec D-Dimer (<0.60) mg/L FEU Sodium (137-145) mmol/L Potassium (3.5-5.1) mmol/L Chloride (98-107) mmol/L Carbon Dioxide (22-30) mmol/L Anion Gap mmol/L BUN (7-17) mg/dL Creatinine (0.52-1.04) mg/dL Est GFR (CKD-EPI)AfAm (>60 ml/min/1.73 sqM) Est GFR (CKD-EPI)NonAf (>60 ml/min/1.73 sqM) Glucose (74-99) mg/dL Calcium (8.4-10.2) mg/dL Phosphorus (2.5-4.5) mg/dL Magnesium (1.6-2.3) mg/dL Total Bilirubin (0.2-1.3) mg/dL AST (14-36) U/L ALT (4-34) U/L Alkaline Phosphatase (38-126) U/L Troponin I <0.012 (0.000-0.034) ng/mL NT-Pro-B Natriuret Pep 237 pg/mL Total Protein (6.3-8.2) g/dL Albumin (3.5-5.0) g/dL - Radiology Data Radiology results: report reviewed (CT brain C-spine possible subarachnoid hemorrhage, chest pelvis and arm x-rays are negative, CTA chest pending for PE negative for PE, I did repeat CT brain at 6 hours with no change from prior CT), image reviewed Disposition Clinical Impression: Fall, Syncope, Forehead laceration, Subarachnoid hemorrhage Disposition: OTHER INSTITUTION NOT DEFINED Condition: Serious Instructions (If sedation given, give patient instructions): Syncope (ED), Fall Prevention for Older Adults (ED) Is patient prescribed a controlled substance at d/c from ED?: No Referrals: Jessica Arroyo MD [Primary Care Provider] - 1-2 days Time of Disposition: 21:00 - Out of Hospital Transfer - Req. Specs Out of Hospital Transfer - Requested Specifics: Other Emergency Center
[2022-09-02 16:05] LABS: Basophils % (A) 0 %; Eosinophils # (A) 0.1 k/uL (0-0.7); Eosinophils % (A) 2 %; HCT 37.5 % (34.0-46.0); HGB 12.6 gm/dL (11.4-16.0); Lymphocytes # (A) 1.3 k/uL (1.0-4.8); Lymphocytes % (A) 18 %; MCH 31.9 pg (25.0-35.0); MCHC 33.6 g/dL (31.0-37.0); MCV 95.1 fL (80.0-100.0); Mean Platelet Volume 8.8; Monocytes # (A) 0.4 k/uL (0-1.0); Monocytes % (A) 6 %; Neutrophils # (A) 5.5 k/uL (1.3-7.7); Neutrophils % (A) 73 %; Platelet Count 230 k/uL (150-450); RBC 3.94 m/uL (3.80-5.40); RDW 12.9 % (11.5-15.5); WBC 7.5 k/uL (3.8-10.6)
[2022-09-02 16:11] LABS: Calcium 9.2 mg/dL (8.4-10.2); Magnesium 1.7 mg/dL (1.6-2.3); Phosphorus 3.6 mg/dL (2.5-4.5); Potassium 4.6 mmol/L (3.5-5.1); Total Bilirubin 0.5 mg/dL (0.2-1.3); Total Protein 6.5 g/dL (6.3-8.2)
[2022-09-02 16:23] LABS: Partial Thromboplastin Time 23.1 sec (22.0-30.0)
--- NOTE | 2022-09-02 17:00 | XR ---
EXAMINATION TYPE: XR pelvis AP view DATE OF EXAM: 09/02/2022 4:30 PM INDICATION: Patient age:Female; 72 years old; Reason for study: fall; [facility]. COMPARISON: Right hip radiograph 08/08/2016 TECHNIQUE: The right hip was examined in the frontal and lateral projections and a AP pelvis. Patient positioning limits evaluation of the greater trochanters bilaterally. FINDINGS: Bilateral total hip arthroplasties. Hardware appears grossly intact. No evidence for fractu re or dislocation. Degenerative changes of the sacroiliac joints and L5-S1 level are noted. Phlebolit h noted within the pelvis. IMPRESSION: No acute osseous pathology as visualized. Degenerative changes present.
--- NOTE | 2022-09-02 17:01 | XR ---
EXAMINATION TYPE: XR shoulder complete RT DATE OF EXAM: 09/02/2022 4:33 PM INDICATION: Patient age:Female; 72 years old; Reason for study: fall; COMPARISON: Chest radiograph 08/04/2022 TECHNIQUE: The right shoulder was examined in AP, internally rotated and scapular Y projections. . FINDINGS: No evidence of acute osseous pathology, joint dislocation, or soft tissue swelling. The remaining por tions of the visualized chest are unremarkable. Degenerative changes of the right shoulder and acromi oclavicular joint are noted. IMPRESSION: No evidence for fracture or dislocation.
[2022-09-02] MEDS ORDERED: TOPICAL SKIN ADHESIVE 1 EACH AMP TOPICAL ONE (17:28)
--- NOTE | 2022-09-02 17:33 | XR ---
EXAMINATION TYPE: XR chest 1V DATE OF EXAM: 09/02/2022 4:38 PM COMPARISON: Chest x-ray 07/07/2022 TECHNIQUE: XR chest 1V . CLINICAL INDICATION:Female, 72 years old with history of fall; FINDINGS: Lungs/Pleura: There is no evidence of pleural effusion, focal consolidation, or pneumothorax. Pulmonary vascularity: Unremarkable. Heart/mediastinum: Cardiomediastinal silhouette is unremarkable. Musculoskeletal: No acute osseous pathology. IMPRESSION: No acute cardiopulmonary disease/process.
--- NOTE | 2022-09-02 17:35 | XR ---
EXAMINATION TYPE: XR wrist complete RT DATE OF EXAM: 09/02/2022 4:43 PM INDICATION: Patient age:Female; 72 years old; Reason for study: fall; PH[facility]. COMPARISON: No relevant priors TECHNIQUE: 4 views of the right wrist. Frontal, navicular, lateral, and oblique. FINDINGS: No acute osseous pathology, joint dislocation, or joint effusion. No evidence of any soft tissue swelling is seen. Degenerative changes are present at the first carpometacarpal joint and radi ocarpal joint. IMPRESSION: No acute osseous pathology. Multiarticular degenerative changes.
--- NOTE | 2022-09-02 18:53 | CT ---
EXAMINATION TYPE: CT brain cspine wo con CT DLP: 1427.4 mGycm, Automated exposure control for dose reduction was used. DATE OF EXAM: 09/02/2022 5:03 PM COMPARISON: Chest CT 07/21/2022 CLINICAL INDICATION:Female, 72 years old with history of fall; Fall TECHNIQUE: Brain: Multiple axial CT images of the brain were obtained without IV contrast. Cspine: Axial CT images from the skull base to the inferior aspect of T2 we obtained without intraven ous contrast. Coronal and sagittal reformatted images were also reviewed. FINDINGS: Brain: Extra-axial spaces: Subtle linear hyperdensity within an anterior right frontal lobe sulcus (series 2 01, image 39). No additional areas noted. Ventricular system: Within normal limits Cerebral parenchyma: No acute intraparenchymal hemorrhage or mass effect. The sawyer-white junction is well differentiated. Scattered hypoattenuating areas are seen within the white matter. Cerebellum: Unremarkable. Mass effect: No evidence of midline shift. Intracranial vasculature: Atherosclerotic calcifications of the intracranial vessels. Soft tissues: Normal. Calvarium/osseous structures: No depressed skull fracture. Paranasal sinuses and mastoid air cells: Right maxillary mucus retention cysts.Mastoid air cells are Clear Visualized orbits: Orbital contents are intact. Cervical spine: Fracture: None. Osseous structures: Multilevel degenerative disc disease changes with endplate spurring and disc oste ophyte complex's. Multilevel uncovertebral and facet hypertrophy are present. These changes are most pronounced at the C4-C5 and C5-C6 levels . Vertebral alignment: Within normal limits. Spinal canal/Neural Foramina: Disc osteophyte complexes at C5-C6 and C6-C7 with at least mild spinal canal stenosis. Facet joint uncovertebral joint arthropathy scattered throughout the cervical spine w ith varying degrees of neural foraminal stenosis. Neck soft tissues: Prevertebral soft tissues are within normal limits. Other: The airway is patent. Mild emphysematous changes of the lung apices. Findings communicated to Dr. Lopez Kimbrough DO on 09/02/2022 5:[address] June Douglas. IMPRESSION: 1. Linear hyperdensity within the right frontal lobe may represent small subarachnoid hemorrhage give n the setting of trauma versus small vessel calcification. Recommend short interval CT follow-up to a ssess for change. 2. No evidence of cervical spine fracture. 3. Nonspecific white matter changes which likely related to microangiopathy. 4. Moderate multilevel degenerative disc disease.
--- NOTE | 2022-09-02 20:28 | CT ---
EXAMINATION TYPE: CT angio chest CT DLP: 269.8 mGycm, Automated exposure control for dose reduction was used. DATE OF EXAM: 09/02/2022 8:03 PM COMPARISON: CT brain cervical spine 09/02/2022 CLINICAL INDICATION:Female, 72 years old with history of PE,syncope; R/O PE. Syncope. TECHNIQUE/CONTRAST: CTA scan of the thorax is performed with IV Contrast, patient injected with 100cc mL of Isovue 370, p ulmonary embolism protocol. MIP images are created and reviewed. FINDINGS: Pulmonary Artery: There is no evidence for a filling defect within the pulmonary vasculature to sugge st acute pulmonary embolism. The pulmonary artery is of normal size. Lungs/Pleura: Paraseptal and centrilobular emphysematous changes. Posterior dependent atelectasis. Bi basilar subsegmental atelectasis versus scarring. Bilateral apical scarring. No pneumothorax or pleur al effusion. Airway: Large airways are patent. Heart: Heart is within normal limits for size.. Vasculature: Moderate atherosclerotic calcifications are present throughout the aorta and its branche s. Mediastinum: No gross evidence of adenopathy. Musculoskeletal: Mild degenerative disc disease changes are present throughout the thoracolumbar spin e. Soft Tissues: Unremarkable. Lower neck: No significant findings. Upper Abdomen: Nonvisualization of the left kidney. Remainder of the upper abdomen is normal in appea nataliya.. IMPRESSION: 1. No evidence of pulmonary embolism or acute cardiopulmonary process. 2. Emphysematous changes.
[2022-09-02] MEDS ORDERED: ACETAMINOPHEN TAB 500 MG TAB PO STA (21:19)
--- NOTE | 2022-09-02 21:25 | CT ---
EXAMINATION TYPE: CT brain wo con CT DLP: 1204.4 mGycm, Automated exposure control for dose reduction was used. DATE OF EXAM: 09/02/2022 9:01 PM COMPARISON: CT brain 09/02/2022. CLINICAL INDICATION:Female, 72 years old with history of n, bleed recheck TECHNIQUE: Brain: Axial CT images of the brain were obtained with coronal and sagittal reformats created and rev iewed. Contrast used: None. Oral contrast used: None. FINDINGS: Intravenous contrast from earlier examinations persists. Brain: Extra-axial spaces: Persistent focal hyperdensity within a sulcus of the right anterior frontal lobe (series 2032, image 37 and series 2034, image 26) area of concern has not significantly changed from earlier examination. No new extra-axial hyperdensities or fluid collections. Ventricular system: Within normal limits Cerebral parenchyma: No acute intraparenchymal hemorrhage or mass effect. The sawyer-white junction is well differentiated. Scattered hypoattenuating areas are seen within the white matter. Cerebellum: Unremarkable. Mass effect: No evidence of midline shift. Intracranial vasculature: Atherosclerotic calcifications of the intracranial vessels. Soft tissues: Normal. Calvarium/osseous structures: No depressed skull fracture. Paranasal sinuses and mastoid air cells: Right maxillary sinus mucous retention cyst. Mastoid air torsten ls are Clear Visualized orbits: Orbital contents are intact. IMPRESSION: 1. Persistent hyperdensity near the right frontal lobe, this has not significantly changed from earli er examination. Remains suspicious for small subarachnoid hemorrhage given patient's history of traum a. Continued CT follow-up is recommended. 2. Nonspecific white matter changes which likely relate to chronic microangiopathy.
[2022-09-02 22:46] VITALS: BP 140/82; PULSE 86
== END 2022-09-02 22:56 | disposition other institution (70) ==
LOC: EC 14:22
DX: S01.81XA Laceration without foreign body of other part of head, initial encounter (principal); S06.6X9A Traumatic subarachnoid hemorrhage with loss of consciousness of unspecified duration, initial encounter; R55 Syncope and collapse; F32.A Depression, unspecified; F41.9 Anxiety disorder, unspecified; Z87.891 Personal history of nicotine dependence; Z79.82 Long term (current) use of aspirin; Z79.899 Other long term (current) drug therapy; W18.39XA Other fall on same level, initial encounter
CPT/HCPCS: 36415; 93005; 85379; 83880; 80053; 83735; 84100; 84484; 85025; 85610; 85730; 72170; 73030; 73110; 71045; 72125; 70450; 71275; 12013; 99285; 96360; Q9967

== ENCOUNTER → 2022-09-12 | Outpatient (CLI) | payer MEDICARE ==
--- NOTE | 2022-09-12 08:42 | CT ---
EXAMINATION TYPE: CT brain wo con DATE OF EXAM: 09/12/2022 COMPARISON: 09/02/2022 HISTORY: 72-year-old female [id number], headaches TECHNIQUE: Examination was done in axial plane without intravenous contrast. Coronal and sagittal r econstructions performed. CT DLP: 1029.9 mGycm Automated exposure control for dose reduction was used. FINDINGS: The previous small focus of subarachnoid hemorrhage in the lateral right frontal region has resolved. Moderate confluent white matter hypodensities in both cerebral hemispheres as well as mild ventricul ar prominence likely due to central cerebral atrophy is unchanged. Old lacunar infarct bilateral basa l ganglia unchanged. No evidence for acute intracranial hemorrhage, acute ischemic change, mass, mass effect, midline shif t, or extra-axial fluid collection. No effacement of cerebral sulci and basal subarachnoid cisterns. Sandoval-white matter differentiation is maintained. Rightward nasal septal deviation. Mucosal thickening and suspected mucosal retention cyst floor of th e right maxillary sinus. Orbits and globes are intact. Mastoid air cells well pneumatized. IMPRESSION: The previous small focus of subarachnoid hemorrhage along the lateral right frontal region has resolv ed. Similar moderate burden of chronic small vessel ischemic disease and mild central cerebral atroph y. No acute process seen.
== END | disposition home or self-care (01) ==
LOC: RADCTMAIN 07:32
PROVIDERS: ATTEND Family Medicine
DX: S06.6X Traumatic subarachnoid hemorrhage (principal); G31.9 Degenerative disease of nervous system, unspecified
CPT/HCPCS: 70450

== ENCOUNTER → 2022-10-20 | Outpatient (CLI) | payer MEDICARE ==
[2022-10-20 20:06] LABS: ALT 22 U/L (8-44); AST 25 U/L (13-35); Chol/HDL Ratio 2.15 Ratio; LDL Cholesterol,Calculated 98.5 mg/dL (0.0-131.0)
== END | disposition home or self-care (01) ==
LOC: LABWHC1 13:03
PROVIDERS: ATTEND Internal Medicine Interventional Cardiology
DX: E78.2 Mixed hyperlipidemia (principal)
CPT/HCPCS: 36415; 80061; 84450; 84460

== ENCOUNTER → 2022-10-23 | Outpatient (CLI) | payer MEDICARE ==
--- NOTE | 2022-10-24 08:10 | MM ---
Reason for Exam: Screening (asymptomatic). Last mammogram was performed 1 year(s) and 1 month(s) ago. Patient History: Menarche at age 12. First Full-Term at age 20. Left ovary removed at age 49. Right ovary removed at age 49. Hysterectomy at age 49. Postmenopausal. 1998, Benign Excisional Biopsy on the right side. Maternal aunt had breast cancer, age 62. Risk Values: Nidia 5 year model risk: 1.9%. NCI Lifetime model risk: 4.6%. Prior Study Comparison: 07/01/2019 Bilateral Screening Mammogram, [facility]. 09/06/2020 Bilateral Screening Mammogram, [facility]. 10/10/2021 Bilateral MG 3D screening mammo w/cad, [facility]. Tissue Density: The breast tissue is heterogeneously dense. This may lower the sensitivity of mammography. Findings: Analyzed By CAD. There is no suspicious group of microcalcifications or new suspicious mass in either breast. Overall Assessment: Negative, BI-RAD 1 Management: Screening Mammogram of both breasts in 1 year. . Patient should continue monthly self-breast exams. A clinical breast exam by your physician is recommended on an annual basis. This exam should not preclude additional follow-up of suspicious palpable abnormalities. Note on Nidia scores and lifetime risk: 1. A Nidia score greater than 3% is considered moderate risk. If this is the case, consider specialist referral to assess eligibility for a risk reducing agent. 2. If overall lifetime risk for the development of breast cancer is 20% or higher, the patient may qualify for future screening with alternating mammogram and breast MRI. Electronically signed and approved by: Stanley Polanco M.D. Radiologis
== END | disposition home or self-care (01) ==
LOC: RADMAMWWP 15:02
PROVIDERS: ATTEND Family Medicine
DX: Z12.31 Encounter for screening mammogram for malignant neoplasm of breast (principal); Z78.0 Asymptomatic menopausal state; Z80.3 Family history of malignant neoplasm of breast
CPT/HCPCS: 77063; 77067

== ENCOUNTER → 2023-07-27 | Outpatient (CLI) | payer MEDICARE ==
--- NOTE | 2023-07-27 14:59 | CTL ---
EXAMINATION TYPE: CT Low Dose Lung DATE OF EXAM ORDERED: 07/27/2023 HISTORY: . Lung cancer screening CT DLP: 80.[address] CTDI: 2.1 mGy Automated exposure control for dose reduction was used. COMPARISON: CT chest on 09/02/2022. TECHNIQUE: Low dose computed tomography scan was performed through the chest at 1 mm thick sections a nd reconstructed images in multiple planes at 1 mm and [address] DIAGNOSTIC QUALITY: Satisfactory FINDINGS: LUNG NODULES: LUNGS: COPD: Severity: None Fibrosis: Severity: None Lymph nodes: No adenopathy. Other findings: RIGHT PLEURAL SPACE: Effusion: None Calcification: None Thickening: None Pneumothorax: None LEFT PLEURAL SPACE: Effusion: None Calcification: None Thickening: None Pneumothorax: None HEART: Heart Size: Normal Coronary Calcification: Moderate diffuse coronary artery calcifications. There is moderate vascular c alcification otherwise seen throughout the thoracic aorta. Pericardial Effusion: None OTHER FINDINGS: Upper abdomen: None Bony thorax: None Supraclavicular region: None Other: None IMPRESSION: 1. Negative lung cancer screening examination for significant pulmonary nodules. 2. Moderate coronary calcifications. CT LUNG RAD AND CT CHEST RECOMMENDATION: Lung-Rad 1 Negative: Continue annual screening with LDCT in 12 months. 20
== END | disposition home or self-care (01) ==
LOC: RADCTMAIN 14:30
PROVIDERS: ATTEND Family Medicine
DX: Z12.2 Encounter for screening for malignant neoplasm of respiratory organs (principal); I25.10 Atherosclerotic heart disease of native coronary artery without angina pectoris; Z87.891 Personal history of nicotine dependence
CPT/HCPCS: 71271

== ENCOUNTER → 2023-10-25 | Outpatient (CLI) | payer MEDICARE ==
--- NOTE | 2023-10-25 21:24 | MM ---
Reason for Exam: Screening (asymptomatic). Last screening mammogram was performed 12 month(s) ago. Patient History: Menarche at age 12. First Full-Term at age 20. Left ovary removed at age 49. Right ovary removed at age 49. Hysterectomy at age 49. Postmenopausal. 1998, Benign Excisional Biopsy on the right side. Maternal aunt had breast cancer, age 62. Risk Values: Nidia 5 year model risk: 1.9%. NCI Lifetime model risk: 4.3%. Prior Study Comparison: 09/06/2020 Bilateral Screening Mammogram, [facility]. 10/10/2021 Bilateral MG 3D screening mammo w/cad, [facility]. 10/23/2022 Bilateral MG 3D screening mammo w/cad, [facility]. Tissue Density: There are scattered areas of fibroglandular density. Findings: Analyzed By CAD. There is no suspicious group of microcalcifications or new suspicious mass in either breast. Overall Assessment: Negative, BI-RAD 1 Management: Screening Mammogram of both breasts in 1 year. . Patient should continue monthly self-breast exams. A clinical breast exam by your physician is recommended on an annual basis. This exam should not preclude additional follow-up of suspicious palpable abnormalities. Note on Nidia scores and lifetime risk: 1. A Nidia score greater than 3% is considered moderate risk. If this is the case, consider specialist referral to assess eligibility for a risk reducing agent. 2. If overall lifetime risk for the development of breast cancer is 20% or higher, the patient may qualify for future screening with alternating mammogram and breast MRI. Electronically signed and approved by: Liza Peck M.D. Radiologist
== END | disposition home or self-care (01) ==
LOC: RADMAMWWP 14:01
PROVIDERS: ATTEND Family Medicine
DX: Z12.31 Encounter for screening mammogram for malignant neoplasm of breast (principal); Z78.0 Asymptomatic menopausal state; Z80.3 Family history of malignant neoplasm of breast
CPT/HCPCS: 77063; 77067

== ENCOUNTER → 2023-12-19 | Outpatient (CLI) | payer MEDICARE ==
[2023-12-19 18:23] LABS: Chol/HDL Ratio 1.92 Ratio; VLDL Calculation 13.86 mg/dL (5.00-40.00)
[2023-12-19 18:24] LABS: ALT 17 U/L (8-44); AST 25 U/L (13-35); LDL Cholesterol,Calculated 86.1 mg/dL (0.0-131.0)
== END | disposition home or self-care (01) ==
LOC: LABWHC1 11:46
PROVIDERS: ATTEND Internal Medicine Interventional Cardiology
DX: E78.2 Mixed hyperlipidemia (principal)
CPT/HCPCS: 36415; 80061; 84450; 84460

== ENCOUNTER → 2024-07-30 | Outpatient (CLI) | payer MEDICARE ==
--- NOTE | 2024-07-30 16:12 | CTL ---
EXAMINATION TYPE: CT Low Dose Lung DATE OF EXAM ORDERED: 07/30/2024 COMPARISON: 07/27/2023 CLINICAL INDICATION: Female, 74 years old with history of Z12.2 LUNG CA SCR Z87.891 [employer]MER [employer]; PH H, Former smoker, quit 2018, was 1 ppd x 30 years, no concerns, Lung cancer screening, History of Smo vlad/tobacco use. TECHNIQUE: Low dose computed tomography scan was performed through the chest at 1 mm thick sections a nd reconstructed images in multiple planes at 1 mm and [address] DLP: [address] CTDI: 1.95 mGy Automated exposure control for dose reduction was used. CT DIAGNOSTIC QUALITY: Satisfactory FINDINGS: There is a stable 5 mm nodule in the posterior left lower lobe. There is no new or suspicious lung ma ss or nodule. The lungs are clear and there is no abnormal airspace consolidation or interstitial density. There is no mediastinal, hilar or axillary adenopathy. There is no pleural effusion, pleural thickening or pneumothorax. No focal osseous lesions are seen. Limited scans the upper abdomen reveals no gross abnormality IMPRESSION: 1. Lung rads Category 2 benign. Continue routine screening at yearly intervals. 2. No acute cardiopulmonary disease. [facility], , 07/30/2024 4:10 PM
== END | disposition home or self-care (01) ==
LOC: RADCTMAIN 15:03
PROVIDERS: ATTEND Family Medicine
DX: Z12.2 Encounter for screening for malignant neoplasm of respiratory organs (principal); Z87.891 Personal history of nicotine dependence
CPT/HCPCS: 71271

== ENCOUNTER → 2024-11-11 | Outpatient (CLI) | payer MEDICARE ==
--- NOTE | 2024-11-11 14:37 | MM ---
Reason for Exam: Screening (asymptomatic). Last screening mammogram was performed 12 month(s) ago. Patient History: Menarche at age 12. First Full-Term at age 20. Left ovary removed at age 49. Right ovary removed at age 49. Hysterectomy at age 49. Postmenopausal. 1998, Benign Excisional Biopsy on the right side. Maternal aunt had breast cancer, age 62. Risk Values: Nidia 5 year model risk: 1.9%. NCI Lifetime model risk: 4.0%. Prior Study Comparison: 10/10/2021 Bilateral MG 3D screening mammo w/cad, [facility]. 10/23/2022 Bilateral MG 3D screening mammo w/cad, [facility]. 10/25/2023 Bilateral MG 3D screening mammo w/cad, [facility]. Tissue Density: The breasts are heterogeneously dense, which may obscure small masses. Findings: Analyzed By CAD. Right breast: There is no suspicious group of microcalcifications or new suspicious mass. Left breast: There is no suspicious group of microcalcifications or new suspicious mass. Overall Assessment: Negative, BI-RAD 1 Management: Screening Mammogram of both breasts in [address] [facility] will attempt to contact patient to return for supplemental views and ultrasound if indicated. Patient should continue monthly self-breast exams. A clinical breast exam by your physician is recommended on an annual basis. This exam should not preclude additional follow-up of suspicious palpable abnormalities. Note on Nidia scores and lifetime risk: 1. A Nidia score greater than 3% is considered moderate risk. If this is the case, consider specialist referral to assess eligibility for a risk reducing agent. 2. If overall lifetime risk for the development of breast cancer is 20% or higher, the patient may qualify for future screening with alternating mammogram and breast MRI. [facility], , 11/11/2024 2:33 PM. Electronically signed and approved by: Lazaro Headley DO
== END | disposition home or self-care (01) ==
LOC: RADMAMWWP 13:36
PROVIDERS: ATTEND Family Medicine
DX: Z12.31 Encounter for screening mammogram for malignant neoplasm of breast (principal); R92.333 Mammographic heterogeneous density, bilateral breasts; Z78.0 Asymptomatic menopausal state; Z80.3 Family history of malignant neoplasm of breast
CPT/HCPCS: 77063; 77067